=== PATIENT | female | born 1935 | race Caucasian/White ===

== ENCOUNTER 2020-10-04 14:45 | Outpatient (REF) | payer MEDICARE, SELFPAY | END 2020-10-04 14:46 | disposition home or self-care (01) | LOC: HO.HMGCLDS 14:45 | PROVIDERS: Visit Provider Internal Medicine | DX: Z20.828 Contact with and (suspected) exposure to other viral communicable diseases (principal) | CPT/HCPCS: C9803; U0003 ==

== ENCOUNTER 2023-04-13 13:27 | Outpatient (AMB) | payer MEDICARE, SELFPAY ==
--- NOTE | 2023-04-13 13:33 | MHC.PC.OV ---
Vital Signs 04/13/23 13:44 Height 5 ft 1 in Weight 152 lb BMI 28.7 BP 124/62 Blood Pressure Location Rt brachial Position Sitting Pulse 82 Pulse Source Pulse Oximeter Pulse Oximetry (%) 97 Oxygen Delivery Method Room Air Intake Visit Reasons: est care Intake Note: Pt is here today as a New Patient to est care Allergies lisinopril Adverse Reaction (Verified 07/12/23 12:09) unknown avandia Allergy (Severe, Uncoded 07/12/23 12:09) swelling of tongue Medication List - Last Reconciled 04/13/23 by Savana Cordoba MD amlodipine 5 mg PO DAILY atorvastatin 40 mg PO DAILY glipizide 10 mg PO BID hydrochlorothiazide 25 mg PO DAILY insulin glargine U-300 conc (Toujeo SoloStar U-300 Insulin) 32 units subcut levothyroxine 112 mcg PO DAILY losartan 100 mg PO DAILY Tobacco use date assessed: 04/13/23 Fall risk assessment: No Falls in past year Last assessed Fall Risk: 04/13/23 HPI est care HPI Details 88-year-old lady here today to establish care with a new PCP she has diabetes mellitus, hypertension, hypothyroidism, dyslipidemia, IBS with diarrhea as the main presenting symptom, has history of left breast cancer status post lumpectomy and radiation therapy. She is currently being seen by Dr. Otero for her diabetes mellitus, currently on Toujeo and glipizide. Last hemoglobin A1c as noted on her medical record was 8.9% from October 2022. Patient states however that her fasting sugar in the morning when she checks it has when been running between 100-120 mg/dL. States that she does have an appointment for follow-up with him in June 2023. Patient states that she has been having intermittent episodes of abdominal cramping and loose stools every time she would go out socially. Does not have any problems when at home. Would taken Imodium prior to leaving the house which has been helping. She has been told that she has a cardiac murmur, does complain of dyspnea on hvyd-di-mizniqxf exertion like climbing a flight of stairs. Denies any accompanying chest pain, no lightheadedness or headache. [facility] Medical History (Updated 07/12/23 @ 12:21 by Savana Cordoba MD) Acquired hypothyroidism Diabetes mellitus, with long-term current use of insulin Dyslipidemia Dyspnea on exertion Essential hypertension Fracture of left wrist History of left breast cancer IBS (irritable bowel syndrome) Mitral and aortic regurgitation Moderate aortic valve stenosis Osteoarthritis of hip Systolic ejection murmur Surgical History History of bladder suspension procedure History of cholecystectomy History of lumpectomy of left breast Social History Housing: House Patient Tobacco Use Status: Former Tobacco user e-Cigarette/Vaping Use: Never Used service: No Current occupational status: retired Cognitive needs: No Hearing needs: Yes Vision needs: Yes Female Reproductive History Menstrual Date of Mammogram: 12/01/22 (Negative, done at [facility]) Questionnaire PHQ-9 Over the last 2 weeks, how often have you been bothered by any of the following problems? 1. Little interest or pleasure in doing things: not at all 2. Feeling down, depressed, or hopeless: not at all 3. Trouble falling or staying asleep, or sleeping too much: not at all 4. Feeling tired or having little energy: not at all 5. Poor appetite or overeating: not at all 6. Feeling bad about yourself - or that you are a failure or have let yourself or your family down: not at all 7. Trouble concentrating on things, such as reading the newspaper or watching television: not at all 8. Moving or speaking so slowly that other people could have noticed. Or the opposite - being so fidgety or restless that you have been moving around a lot more than usual: not at all 9. Thoughts that you would be better off or of hurting yourself in some way: not at all Total score: 0 Depression Screening Interpretation: Negative 80705 - PHQ-9 Billing: Yes Source: Developed by Drs. Reece Medina, Brionna Sewell, Tarun Antony and colleagues, with an educational ree from [employer]. Thrive Questionnaire Date Thrive assessed: 04/13/23 I am a: Patient What is your living situation today?: I have a steady place to live Within the past 12 months, did the food you bought not last and you didn't have the money to get more?: Never true Within the past 12 months, did you worry whether your food would run out before you got money to buy more?: Never true Do you have trouble paying for medicines?: No Do you have trouble getting transportation to medical appointments?: No Do you have trouble paying your heating and electricity bill?: No Do you have trouble taking care of your child, family member or friend?: No Do you have trouble with day-to-day activities such as bathing, preparing meals, shopping, managing finances, etc.?: No Are you currently unemployed and looking for a job?: No Are you interested in more education?: No AUDIT C Alcohol Use Questionnaire (AUDIT-C) 1. How often do you have a drink containing alcohol?: Monthly or less 2. How many drinks containing alcohol do you have on a typical day when you are drinking?: 1 or 2 3. How often do you have six or more drinks on one occasion?: Never Total Score: 1 CHRISTI-7 AMB Questionnaire CHRISTI-7 Date CHRISTI - 7 assessed: 04/13/23 Feeling nervous, anxious, or on edge: 0 = Not at all Not being able to stop or control worryin = Not at all Worrying too much about different things: 0 = Not at all Trouble relaxin = Not at all Being so restless that it is hard to sit still: 0 = Not at all Becoming easily annoyed or irritable: 0 = Not at all Feeling afraid as if something awful might happen: 0 = Not at all Total CHRISTI-7 score (0-4 normal; 5-9 mild; 10-14 moderate; 15-21 severe): 0 Source: Developed by Drs. Reece Medina, Brionna Sewell, Tarun Antony and colleagues, with an educational ree from [employer]. CHRISTI-7 Assessment Billing CHRISTI-7 Assessment Tool: CHRISTI-7 Assessment 15188 Review of Systems Const Denies body aches, Denies fever(s), Denies headache(s) and Denies weakness Eyes Denies change in vision ENT Denies dizziness, Denies headache(s), Denies nasal congestion, Denies nasal discharge and Denies sore throat Card Denies chest pain, Denies lightheadedness and Denies palpitations Resp Denies chest congestion, Denies cough and Denies wheezing GI Denies abdominal pain and Denies heartburn Denies hematuria, Denies urinary frequency, Denies dysuria and Denies urinary urgency Musc Denies joint swelling, Denies limited range of motion and Reports stiffness Skin/Breast Denies breast pain, Denies breast mass, Denies lesions and Denies rash Neuro Denies dizziness, Denies headache(s) and Denies weakness Psych Reports no additional complaints Endo Denies polydipsia, Denies polyuria and Denies palpitations Scott/Lymph Denies easy bruising Aller/Immun Denies seasonal rhinorrhea and Denies wheezing Physical exam (Primary Care) Vital Signs: Last Vital Signs Pulse 82 04/13/23 13:44 BP 124/62 04/13/23 13:44 Pulse Ox 97 04/13/23 13:44 Oxygen Delivery Method Room Air 04/13/23 13:44 BMI result Body Mass Index 28.7 Tobacco/Smoking Status: Tobacco use Status Tobacco use date assessed 04/13/23 04/13/23 13:38 Patient Tobacco Use Status Former Tobacco user 04/13/23 13:57 e-Cigarette/Vaping Use Never Used 04/13/23 13:57 PHQ-9: PHQ-9 Score PHQ-9: Total score 0 04/13/23 15:34 Depression Screening Interpretation: Negative Thrive Assessment: Date of Thrive Assessment Date Thrive assessed 04/13/23 04/13/23 14:12 Const Other: Alert oriented x3, no acute distress noted, ambulatory with normal gait, looks younger than stated age Nutritional Appearance: average body habitus Orientation/consciousness: patient oriented x3 [facility] Head: Yes normocephalic and Yes atraumatic Ears: hearing grossly normal bilaterally, external ears normal, TM's normal bilaterally and EAC's normal General nose exam: Normal external nose present Face and sinus: Yes face symmetric Mouth: Normal oral and palatal mucosa present, oropharynx normal and moist mucous membranes Eyes General: appearance normal, both eyes and all related structures Conjunctivae: conjunctivae normal Sclerae: sclerae normal Pupils: Equal, round and reactive pupils present EOM: EOMs intact bilaterally Neck Other: Thyroid nonpalpable Neck: Yes full ROM, Yes no lymphadenopathy and Yes supple Chest Chest palpation & inspection: normal inspection of the chest Breast/axilla palpation: normal palpation of the breasts Resp Effort & Inspection: normal respiratory effort and able to speak in complete sentences Auscultation: clear to auscultation bilaterally Cardio Palpation: normal PMI Rate: regular rate Rhythm: regular rhythm Heart sounds: S1 normal heart sound present, S2 normal heart sound present and Murmur heart sound present systolic (Systolic ejection murmur left sternal border) GI Inspection: Yes normal to inspection Palpation (GI): Soft to palpation, nontender, no guarding and no masses Auscultation: normal bowel sounds General: Yes no CVA tenderness Back/Spine/Pelvis Back: no CVA tenderness and No back tenderness Skin General skin exam: no rashes or lesions noted Neuro General: patient oriented x3, gait normal, tone normal, moves all extremities, Normal light touch and pain sensation, no focal motor deficits and CN's II-XI intact bilaterally Cranial nerves: Yes CN's II-XII intact bilaterally and Yes Equal, round and reactive pupils present Cognition (Neuro): normal cognition Gait exam (Neuro): Normal gait present Psych Appearance: grossly normal and well kempt Mental Status: mental status grossly normal Speech and movement: Normal speech and movement present Affect: normal affect Attitude: cooperative Thought process: Normal thought process present Thought content: Normal thought content present Immunizations pneumoc 20-dandre conj-dip cr(PF) Performing Provider: Savana Cordoba MD Administered by: Marcella Montaño CMA on 04/13/23 14:29 Dose Route Admin Location Lot Number Expiration Date NDC Early Childhood 0.5 mL IM Right Deltoid [id number] 08/21/24 7115-7123-87 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 Gerer yearly for her routine eye exam (2) IBS (irritable bowel syndrome): Code(s): K58.9 - Irritable bowel syndrome without diarrhea Plan: Takes Imodium as needed, increase dietary fiber intake continue staying active (3) Acquired hypothyroidism: Code(s): E03.9 - Hypothyroidism, unspecified Plan: TSH and free T4 ordered, continued on current dose of levothyroxine (4) Dyslipidemia: Code(s): E78.5 - Hyperlipidemia, unspecified Plan: Refill sent for her atorvastatin, fasting lipids ordered, continue with healthy eating habits and regular exercise (5) Essential hypertension: Code(s): I10 - Essential (primary) hypertension Plan: Blood pressure at goal of less than 130/80. Continue with current medication. Reinforced importance of following a low sodium diet, getting regular exercise, and lowering stress levels. (6) History of left breast cancer: Comment: Status post breast lumpectomy in radiation Code(s): Z85.3 - Personal history of malignant neoplasm of breast Plan: Had a recent mammogram which showed normal findings (7) Dyspnea on exertion: Code(s): R06.09 - Other forms of dyspnea Plan: Echocardiogram ordered, CBC ordered (8) Systolic ejection murmur: Code(s): R01.1 - Cardiac murmur, unspecified Plan: Echocardiogram ordered (9) Need for pneumococcal 20-valent conjugate vaccination: Code(s): Z23 - Encounter for immunization Plan: Prevnar 20 given today Orders: Orders Comprehensive [place]. 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, E78.5 - Hyperlipidemia, unspecified, E03.9 - Hypothyroidism, unspecified, K58.9 - Irritable bowel syndrome without diarrhea, Z85.3 - Personal history of malignant neoplasm of breast, Z98.890 - Other specified postprocedural states, I10 - Essential (primary) hypertension Lipid Panel 04/14/23 E11.9 - Type 2 diabetes mellitus without complications, 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 of insulin, E78.5 - Hyperlipidemia, unspecified, E03.9 - Hypothyroidism, unspecified, K58.9 - Irritable bowel syndrome without diarrhea, Z85.3 - Personal history of malignant neoplasm of breast, Z98.890 - Other specified postprocedural states, I10 - Essential (primary) hypertension Free T4 (Free Thyroxine) 3 Months E03.9 - Hypothyroidism, unspecified, E11.9 - Type 2 diabetes mellitus without complications, Z79.4 - group home (current) use of insulin, E78.5 - Hyperlipidemia, unspecified, K58.9 - Irritable bowel syndrome without diarrhea, Z85.3 - Personal history of malignant neoplasm of breast, Z98.890 - Other specified postprocedural states, I10 - Essential (primary) hypertension Thyroid Stimulating Hormone 04/14/23 E11.9 - Type 2 diabetes mellitus without complications, 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 of insulin, E78.5 - Hyperlipidemia, unspecified, E03.9 - Hypothyroidism, unspecified, K58.9 - Irritable bowel syndrome without diarrhea, Z85.3 - Personal history of malignant neoplasm of breast, Z98.890 - Other specified postprocedural states, I10 - Essential (primary) hypertension Vitamin D 25-OH Total 04/14/23 E11.9 - Type 2 diabetes mellitus without complications, 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3 - Personal history of malignant neoplasm of breast, Z98.890 - Other specified postprocedural states, I10 - Essential (primary) hypertension Complete Blood Count Auto Diff 04/14/23 E11.9 - Type 2 diabetes mellitus without complications, 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 of insulin, E78.5 - Hyperlipidemia, unspecified, E03.9 - Hypothyroidism, unspecified, K58.9 - Irritable bowel syndrome without diarrhea, Z85.3 - Personal history of malignant neoplasm of breast, Z98.890 - Other specified postprocedural states, I10 - Essential (primary) hypertension CA echo transthoracic complete 04/13/23 R01.1 - Cardiac murmur, unspecified, R06.09 - Other forms of dyspnea Pneumococcal 20 Immunization 04/13/23 Z23 - Encounter for immunization Medications: New atorvastatin 40 mg PO DAILY 90 tabs 3RF Coding Level of Care Code New Pt Level 4 (82346) Diagnoses Diabetes mellitus, with long-term current use of insulin E11.9; Z79.4 IBS (irritable bowel syndrome) K58.9 Acquired hypothyroidism E03.9 Dyslipidemia E78.5 Essential hypertension I10 History of left breast cancer Z85.3 Dyspnea on exertion R06.09 Systolic ejection murmur R01.1 Need for pneumococcal 20-valent conjugate vaccination Z23 Additional Codes CHRISTI-7 Assessment Billing - CHRISTI-7 Assessment Tool: CHRISTI-7 Assessment [id number] ([id number])
[2023-04-13 13:44] VITALS: BP 124/62; PULSE 82; O2SAT 97; BMI 28.7
== END 2023-04-13 15:05 | disposition home or self-care (01) ==
LOC: HO.HMGC 13:27
PROVIDERS: PCP Internal Medicine; Visit Provider Internal Medicine
DX: E11.9 Type 2 diabetes mellitus without complications (principal); Z79.4 Long term (current) use of insulin; K58.9 Irritable bowel syndrome, unspecified; E03.9 Hypothyroidism, unspecified; Z23 Encounter for immunization; E78.5 Hyperlipidemia, unspecified; I10 Essential (primary) hypertension; Z85.3 Personal history of malignant neoplasm of breast; R06.09 Other forms of dyspnea; R01.1 Cardiac murmur, unspecified; Z98.890 Other specified postprocedural states
CPT/HCPCS: 90471; 90677; 99204

== ENCOUNTER 2023-04-14 07:27 | Outpatient (REF) | payer MEDICARE, SELFPAY ==
[2023-04-14 11:27] LABS: Hematocrit 41.3 % (37.0-47.0); Hemoglobin 13.3 g/dl (12.0-16.0); Mean Corpuscular HGB Conc 32.2 g/dl (31.0-35.0); Mean Corpuscular Hemoglobin 29.9 pg (27.0-33.0); Mean Corpuscular Volume 92.8 fL (80.0-98.0); Mean Platelet Volume 12.4 fL (9.4-12.3); Platelet Count 250 X10*3/uL (160-400); Red Blood Count 4.45 X10*6/uL (4.20-5.50); Red Cell Distribution Width 12.6 % (11.0-16.0)
[2023-04-14 11:29] LABS: WBC ABN SCTR FOR CBC 1
[2023-04-14 11:47] LABS: Estimated Average Glucose 177 mg/dL; Hemoglobin A1c % 7.8 %
[2023-04-14 11:53] LABS: Band Neutrophils Percent 1 % (3-5); Eosinophils Percent Manual 2 % (0-4); Lymphocytes Percent Manual 12 % (20-40); Monocytes Percent Manual 8 % (2-11); Neutrophils Percent Manual 77 % (45-73)
[2023-04-14 11:55] LABS: Acanthocytes 1+ (0-2) /OIF; Burr Cells 3+ (>5) /OIF; Ovalocytes 1+ (5-14) /OIF; Platelet Estimate NORMAL (NORMAL); Platelet Morphology Comment NORMAL; RBC Morphology NOTED
[2023-04-14 12:30] LABS: Creatinine Urine 40.74 mg/dL; Microalbumin Urine < 5.0 mg/L
[2023-04-14 12:32] LABS: Alanine Aminotransferase 20 U/L (0-31); Albumin Level 3.8 g/dL (3.5-5.0); Alkaline Phosphatase 73 U/L (39-117); Anion Gap 12 (12-20); Aspartate Amino Transferase 19 U/L (5-31); Bilirubin Total 0.8 mg/dL (0.0-1.0); Blood Urea Nitrogen 29 mg/dL (9-16); Calcium 9.6 mg/dL (8.4-10.2); Carbon Dioxide 29 mmol/L (22-29); Chloride 107 mmol/L (96-108); Cholesterol 161 mg/dL; Estimated Glomerular Filt Rate 38; Glucose Fasting 127 mg/dL (60-99); HDL Cholesterol 34 mg/dL; LDL Cholesterol Calculated 101 mg/dl; Potassium 4.3 mmol/L (3.3-5.1); Sodium 144 mmol/L (135-145); Total Protein 6.9 g/dL (6.5-8.0); Triglycerides 133 mg/dL
[2023-04-14 12:52] LABS: Thyroid Stimulating Hormone 0.27 uIU/mL (0.32-4.0); Vitamin D 25-OH Total 33.5 ng/mL (>30)
[2023-04-14 15:17] LABS: Eosinophils Absolute Manual 0.2 X10*3/uL (0.0-0.4); Lymphocytes Absolute Manual 1.3 X10*3/uL (1.2-4.9); Monocytes Absolute Manual 0.8 X10*3/uL (0.1-1.2); Neutrophils Absolute Manual 8.3 X10*3/uL (2.0-8.3); White Blood Count 10.6 X10*3/uL (4.8-10.8)
== END 2023-04-14 07:28 | disposition home or self-care (01) ==
LOC: HO.HMGCLDS 07:27
PROVIDERS: PCP Internal Medicine; Visit Provider Internal Medicine
DX: E03.9 Hypothyroidism, unspecified (principal); E11.9 Type 2 diabetes mellitus without complications; E78.5 Hyperlipidemia, unspecified; I10 Essential (primary) hypertension; K58.9 Irritable bowel syndrome, unspecified; Z98.890 Other specified postprocedural states; Z79.4 Long term (current) use of insulin; Z85.3 Personal history of malignant neoplasm of breast
CPT/HCPCS: 36415; 80053; 80061; 82043; 82306; 83036; 84443; 85007; 85027

== ENCOUNTER → 2023-05-03 13:43 | Outpatient (REF) | payer MEDICARE, SELFPAY ==
--- NOTE | 2023-05-03 13:46 | CA_ITS ---
Transthoracic Echocardiogram Patient (Last, First, Middle): Lachelle Lira, Gender: Female Date of : 1935 Age: 88 Procedure Date: 05/03/2023 Procedure Type: Transthoracic Echocardiogram Location: OP Height: 154.94 cm Weight: 68.95 kg BSA: 1.68 m2 Heart Rate: bpm BP: 140 / 65 mmHg Soda Worker: JASON Referring MD: Savana Cordoba MD Academic Affairs Manager: Jose Khan MD Symptoms: R01.1 - Cardiac murmur, unspecified Study Quality: Adequate ECG Rhythm: Sinus Conclusions: - 1. Normal LV systolic function with impaired relaxation filling pattern 2. Moderate calcific aortic stenosis 3. Calcific mitral valve disease with mild mitral stenosis and mild mitral regurgitation 4. Normal RV systolic pressure 5. No gross pericardial effusion Findings Left Ventricle Normal left ventricular size, thickness, and systolic function. The visually estimated ejection fraction is between 60-65%. Spectral Doppler is indicative of an impaired relaxation filling pattern. Right Ventricle Normal right ventricular cavity size and systolic function. Atria The left atrium is normal in size. There is no evidence of interatrial shunt. The right atrium is normal in size. Aortic Valve There is moderate calcification of the aortic valve. There is mild thickening of the aortic valve. There is moderate aortic valve stenosis. The peak aortic gradient is 33 mmHg.The mean gradient is 18 mmHg. There is mild aortic valve regurgitation. Mitral Valve There is moderate anterior and posterior mitral leaflet thickening. There is mild anterior and mild posterior mitral annular calcification. There is moderate mitral annular calcification. There is mild mitral valve regurgitation. There is mild mitral valve stenosis. Pulmonic Valve The pulmonic valve is likely normal. There is trace pulmonic valve regurgitation. Tricuspid Valve Normal tricuspid valve structure. There is trace tricuspid valve regurgitation. The right ventricular systolic pressure is normal. The right ventricular systolic pressure is 13 mmHg. Normal right atrial pressure. There is no evidence of pulmonary hypertension. Great Vessels All visible segments of the aorta are normal in size. The pulmonary artery was not well visualized. Venous The inferior vena cava is normal in size and collapses greater than 50% with inspiration. Pericardium/Pleural There is no evidence of pericardial effusion. Prior Study Comparison No prior study available for comparison. Measurements 2D Linear Measurements IVSd: 1.16 0.6-0.9/0.6-1.0 cm LVIDd: 3.63 3.9-5.3/4.2-5.9 cm LVIDd Index: 2.16 2.4-3.2/2.2-3.1 cm/m2 LVIDs: 2.36 2.0-3.6 cm LVPWd: 1.04 0.7-1.1 cm LA Diam: 3.30 2.7-3.8/3.0-4.0 cm LAIDs Index: 1.96 1.5-2.3 cm/m2 LV Mass: 156.34 67-162/88-224 g LV Mass Index: 93.06 43-95/49-115 g/m2 LVOT Diam: 1.90 3.0+(-)1.3 cm 2D Systolic Function EF 4C: 69.40 >55% EF 2C: 59.40 >55% EF BiP: 64.90 >55% Mitral Valve MV VTI: 0.51 MV Pk Rajiv: 1.43 MV Mn Rajiv: 0.87 MV Pk Grad: 8.00 MV Mn Grad: 3.00 MV Pk E: 1.13 MV PK A: 1.25 MV Decel Time: 320.00 E/A: 0.90 E'Lateral: 4.79 E'Medial: 2.94 E/E' Med: 38.40 E/E' Lat: 23.60 PHT: 94.00 MVA PHT: 2.34 MVA Continuity: 1.40 Decel Dawson: 3.53 Aortic Valve AoV Pk Rajiv: 2.88 AoV Mn Rajiv: 1.98 AoV VTI: 0.66 AoV Pk Grad: 33.00 Aov Mn Grad: 18.00 DARLYN Cont.VTI: 1.08 AI Pk Rajiv: 3.32 AI Dawson: 1.77 LVOT LVOT Pk Rajiv: 0.91 LVOT Mn Rajiv: 0.65 LVOT VTI: 0.25 LVOT Pk Grad: 3.00 LVOT Mn Grad: 2.00 LVOT Diam: 1.90 LVOT Area: 2.84 Diastolic Function MV Pk E: 1.13 MV Pk A: 1.25 E/A: 0.90 E'Medial: 2.94 E/E' Med: 38.40 E' Laterial: 4.79 E/E' Lat: 23.60 Right Ventricle TAPSE (mm): 18.30 TVS' Rajiv: 16.20 Tricuspid Valve TR Pk Rajiv: 1.61 TR Pk Grad: 10.00 RA Press: 3.00 RVSP: 13.00 Great Vessels Aorta Sinus of Valsalva: 2.99 2.0-3.[address] [place]: 2.20 1.7-3.4 cm Ao Asc: 2.80 2.1-3.4 cm Updated in Other Vendor System with Status of Final Jose Khan MD electronically signed on 05/04/2023 11:04:26 AM with status of Final
== END ==
LOC: HO.CARD 13:43
PROVIDERS: PCP Internal Medicine; Visit Provider Internal Medicine
DX: R01.1 Cardiac murmur, unspecified (principal); R06.09 Other forms of dyspnea
CPT/HCPCS: 93306

== ENCOUNTER 2023-07-08 08:47 | Outpatient (REF) | payer MEDICARE, SELFPAY ==
[2023-07-08 11:08] LABS: MANUAL DIFF FLAG NO
[2023-07-08 11:35] LABS: Basophils Absolute Auto 0.1 X10*3/uL (0.0-0.2); Basophils Percent Auto 0.6 % (0-2); Eosinophils Absolute Auto 0.5 X10*3/uL (0.0-0.4); Eosinophils Percent Auto 5.8 % (0-4); Hematocrit 40.7 % (37.0-47.0); Hemoglobin 13.2 g/dl (12.0-16.0); Imm Gran Abs Auto 0.02 X10*3/uL (0.00-0.03); Imm Gran Pct Auto 0.2 % (0.0-0.4); Lymphocytes Absolute Auto 3.5 X10*3/uL (1.2-4.9); Lymphocytes Percent Auto 37.8 % (20-40); Mean Corpuscular HGB Conc 32.4 g/dl (31.0-35.0); Mean Corpuscular Volume 92.5 fL (80.0-98.0); Mean Platelet Volume 12.4 fL (9.4-12.3); Monocytes Absolute Auto 0.6 X10*3/uL (0.1-1.2); Neutrophils Absolute Auto 4.7 x10*3/uL (2.0-8.3); Neutrophils Percent Auto 49.6 % (45-73); Platelet Count 212 X10*3/uL (160-400); Red Cell Distribution Width 12.8 % (11.0-16.0); White Blood Count 9.4 X10*3/uL (4.8-10.8)
[2023-07-08 12:08] LABS: Free T4 (Free Thyroxine) 0.55 ng/dL (0.71-1.85)
== END 2023-07-08 08:48 | disposition home or self-care (01) ==
LOC: HO.HMGCLDS 08:47
PROVIDERS: PCP Internal Medicine; Visit Provider Internal Medicine
DX: E03.9 Hypothyroidism, unspecified (principal); E11.9 Type 2 diabetes mellitus without complications; E78.5 Hyperlipidemia, unspecified; I10 Essential (primary) hypertension; K58.9 Irritable bowel syndrome, unspecified; Z98.890 Other specified postprocedural states; Z79.4 Long term (current) use of insulin; Z85.3 Personal history of malignant neoplasm of breast
CPT/HCPCS: 36415; 84439; 85025

== ENCOUNTER 2023-07-12 11:30 | Outpatient (AMB) | payer MEDICARE, SELFPAY ==
[2023-07-12 11:42] VITALS: BP 122/64; PULSE 68; O2SAT 95; BMI 28.7
--- NOTE | 2023-07-12 11:42 | A.OFFPC_ITS ---
Vital Signs 07/12/23 11:42 Height 5 ft 1 in Weight 152 lb 2 oz BMI 28.7 BP 122/64 Blood Pressure Location Rt brachial Position Sitting Pulse 68 Pulse Source Pulse Oximeter Pulse Oximetry (%) 95 Oxygen Delivery Method Room Air Intake Visit Reasons: 3m follow up Intake Note: Pt is here today for 3 month f/u. Allergies lisinopril Adverse Reaction (Verified 07/12/23 12:09) unknown avandia Allergy (Severe, Uncoded 07/12/23 12:09) swelling of tongue Medication List - Last Reconciled 07/12/23 by Savana Cordoba MD amlodipine 5 mg PO DAILY atorvastatin 40 mg PO DAILY glipizide 10 mg PO BID hydrochlorothiazide 25 mg PO DAILY insulin glargine U-300 conc (Toujeo SoloStar U-300 Insulin) 32 units subcut levothyroxine 112 mcg PO DAILY losartan 100 mg PO DAILY Tobacco use date assessed: 07/12/23 Fall risk assessment: No Falls in past year Last assessed Fall Risk: 07/12/23 Dental Screening Dental Screen Date: 07/12/23 Did you have a dental visit in the last 12 months?: Yes Did you have a dental problem in the last 6 months where you did not have access to dental care?: No Was dental information given to patient?: No HPI 3m follow up HPI Details 88-year-old lady with diabetes mellitus and hypothyroidism, currently being followed by director prospect Dr. Otero , has hypertension, dyslipidemia, noted to have a cardiac murmur, here today for of follow-up on results of her echocardiogram. It showednormal LV systolic function with impaired relaxation filling pattern, moderate calcific aortic stenosis, calcific mitral valve disease with mild mitral stenosis and mild mitral regurgitation?and normal RV systolic pressure. Patient however denies any shortness of breath, no chest pain or lightheadedness ? Hemoglobin A1c done today came back at 7.7% in the recent free T4 was within normal limits. Patient states that she has an appointment already scheduled to see her endocrine specialist Dr. Otero later this month? ? ? [facility], [facility] Medical History (Updated 07/12/23 @ 12:21 by Savana Cordoba MD) Acquired hypothyroidism Diabetes mellitus, with long-term current use of insulin Dyslipidemia Dyspnea on exertion Essential hypertension Fracture of left wrist History of left breast cancer IBS (irritable bowel syndrome) Mitral and aortic regurgitation Moderate aortic valve stenosis Osteoarthritis of hip Systolic ejection murmur Surgical History History of bladder suspension procedure History of cholecystectomy History of lumpectomy of left breast Social History Housing: House Patient Tobacco Use Status: Former Tobacco user e-Cigarette/Vaping Use: Never Used service: No Current occupational status: retired Cognitive needs: No Hearing needs: Yes Vision needs: Yes Questionnaire PHQ-9 Over the last 2 weeks, how often have you been bothered by any of the following problems? 1. Little interest or pleasure in doing things: several days 2. Feeling down, depressed, or hopeless: not at all 3. Trouble falling or staying asleep, or sleeping too much: several days 4. Feeling tired or having little energy: not at all 5. Poor appetite or overeating: several days 6. Feeling bad about yourself - or that you are a failure or have let yourself or your family down: not at all 7. Trouble concentrating on things, such as reading the newspaper or watching television: not at all 8. Moving or speaking so slowly that other people could have noticed. Or the opposite - being so fidgety or restless that you have been moving around a lot more than usual: not at all 9. Thoughts that you would be better off or of hurting yourself in some way: not at all Total score: 3 Depression Screening Interpretation: Negative 37064 - PHQ-9 Billing: Yes Source: Developed by Drs. Reece Medina, Brionna Sewell, Tarun Antony and colleagues, with an educational ree from [employer]. Thrive Questionnaire Date Thrive assessed: 04/13/23 AUDIT C Alcohol Use Questionnaire (AUDIT-C) 1. How often do you have a drink containing alcohol?: Never 3. How often do you have six or more drinks on one occasion?: Never Total Score: 0 Score Reviewed/Action Taken: Yes CHRISTI-7 AMB Questionnaire CHRISTI-7 Date CHRISTI - 7 assessed: 04/13/23 Source: Developed by Drs. Reece Medina, Tarun Webb Kroenke and colleagues, with an educational ree from [employer]. Review of Systems Const Denies body aches, Denies fever(s), Denies headache(s) and Denies weakness Eyes Denies change in vision ENT Denies dizziness, Denies headache(s), Denies nasal congestion, Denies nasal discharge and Denies sore throat Card Denies chest pain, Denies lightheadedness and Denies palpitations Resp Denies chest congestion, Denies cough and Denies wheezing GI Denies abdominal pain and Denies heartburn Denies hematuria, Denies urinary frequency, Denies dysuria and Denies urinary urgency Musc Denies joint swelling, Denies limited range of motion and Reports stiffness Skin/Breast Denies breast pain, Denies breast mass, Denies lesions and Denies rash Neuro Denies dizziness, Denies headache(s) and Denies weakness Psych Reports no additional complaints Endo Denies polydipsia, Denies polyuria and Denies palpitations Scott/Lymph Denies easy bruising Aller/Immun Denies seasonal rhinorrhea and Denies wheezing Physical exam (Primary Care) Vital Signs: Last Vital Signs Pulse 68 07/12/23 11:42 BP 122/64 07/12/23 11:42 Pulse Ox 95 07/12/23 11:42 Oxygen Delivery Method Room Air 07/12/23 11:42 BMI result Body Mass Index 28.7 Tobacco/Smoking Status: Tobacco use Status Tobacco use date assessed 07/12/23 07/12/23 11:44 Patient Tobacco Use Status Former Tobacco user 07/12/23 11:44 e-Cigarette/Vaping Use Never Used 07/12/23 11:44 PHQ-9: PHQ-9 Score PHQ-9: Total score 3 07/12/23 12:36 Depression Screening Interpretation: Negative Thrive Assessment: Date of Thrive Assessment Date Thrive assessed 04/13/23 07/12/23 11:44 Const Other: Alert oriented x3, no acute distress noted, ambulatory with normal gait, looks younger than stated age Nutritional Appearance: average body habitus Orientation/consciousness: patient oriented x3 HENMT Face and sinus: Yes face symmetric Mouth: moist mucous membranes Eyes General: appearance normal, both eyes and all related structures Neck Other: Thyroid nonpalpable Neck: Yes full ROM, Yes no lymphadenopathy and Yes supple Resp Effort & Inspection: normal respiratory effort and able to speak in complete sentences Auscultation: clear to auscultation bilaterally Cardio Palpation: normal PMI Rate: regular rate Rhythm: regular rhythm Heart sounds: S1 normal heart sound present, S2 normal heart sound present and Murmur heart sound present systolic (Systolic ejection murmur left sternal border) GI Inspection: Yes normal to inspection Palpation (GI): Soft to palpation, nontender, no guarding and no masses Auscultation: normal bowel sounds Neuro General: patient oriented x3, gait normal, tone normal, moves all extremities, Normal light touch and pain sensation, no focal motor deficits and CN's II-XI intact bilaterally Cranial nerves: Yes CN's II-XII intact bilaterally Cognition (Neuro): normal cognition Gait exam (Neuro): Normal gait present Results AMB Hemoglobin A1c AMB Hemoglobin A1c 7.7 % Last Edit by BONITA Hernandez on 07/12/23 12 :39 Results Reviewed Results Reviewed: Laboratory Last Values Hgb A1c (Clinic) 7.7 % (4.0-6.0) H 07/12/23 12:35 RUN: 07/12/23 1209 PAGE 1 [facility] [address] [place] [id number] Net Repairer: Boone Schneider M.D. Specimen Inquiry Name: Beckie Lira Lachelle Age/Sex: 88/F : 1935 Unit#: [id number] Attend Dr: Savana Cordoba MD Re07/08/23 Status: DEP [facility] Disch: SPEC : [id number] MONICA: 07/08/23 STATUS: COMP REQ : [id number] RECD: 07/08/[address]: Savana Cordoba MD COMP: 07/08/23 ENTERED: 07/08/[address] [facility] [address]: ORDERED: CBC Auto Diff Test Result Flag Reference Site WBC 9.4 4.8-10.8 X10*3/uL RBC 4.40 4.20-5.50 X10*6/uL HGB 13.2 12.0-16.0 g/dl HCT 40.7 37.0-47.0 % MCV 92.5 80.0-98.0 fL MCH 30.0 27.0-33.0 pg MCHC 32.4 31.0-35.0 g/dl RDW 12.8 11.0-16.0 % PLT 212 160-400 X10*3/uL MPV 12.4 H 9.4-12.3 fL Neut Pct Auto 49.6 45-73 % ImGran Pct Auto 0.2 0.0-0.4 % Lymp Pct Auto 37.8 20-40 % Hanover Pct Auto 6.0 2-11 % Eos Pct Auto 5.8 H 0-4 % Baso Pct Auto 0.6 0-2 % NRBC Pct Auto 0.0 0.0-0.2 /100WBC ANC Neut Abs # 4.7 2.0-8.3 x10*3/uL ImGran Abs Auto 0.02 0.00-0.03 X10*3/uL Lymph Abs Auto 3.5 1.2-4.9 X10*3/uL Hanover Abs Auto 0.6 0.1-1.2 X10*3/uL Eos Abs Auto 0.5 H 0.0-0.4 X10*3/uL Baso Abs Auto 0.1 0.0-0.2 X10*3/uL NRBC Abs Auto 0.000 0.0-0.012 X10*3/uL Assessment and Plan Assessment & Plan (1) Moderate aortic valve stenosis: Code(s): I35.0 - Nonrheumatic aortic (valve) stenosis Plan: Discussed results of echocardiogram with patient which showed presence of moderate aortic stenosis, currently asymptomatic. Stressed importance of getting blood pressure, cholesterol levels and glucose levels in good control, referred to cardiology for further evaluation (2) Diabetes mellitus, with long-term current use of insulin: Code(s): E11.9 - Type 2 diabetes mellitus without complications; Z79.4 - nursing home (current) use of insulin Plan: Currently being followed by endocrine clinic, latest hemoglobin A1c is at 7.7%. Continued on Toujeo and glipizide (3) Essential hypertension: Code(s): I10 - Essential (primary) hypertension Plan: Blood pressure at goal of less than 130/80. Continue with current medication. Reinforced importance of following a low sodium diet, getting regular exercise, and lowering stress levels. 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 Free T4 (Free Thyroxine) 08/08/23 E03.9 - Hypothyroidism, unspecified, E11.9 - Type 2 diabetes mellitus without complications, E78.5 - Hyperlipidemia, unspecified, I10 - Essential (primary) hypertension, 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 Lipid Panel 08/08/23 E03.9 - Hypothyroidism, unspecified, E11.9 - Type 2 diabetes mellitus without complications, E78.5 - Hyperlipidemia, unspecified, I10 - Essential (primary) hypertension, 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 Microalbumin, Random (w Creat) 08/08/23 E03.9 - Hypothyroidism, unspecified, E11.9 - Type 2 diabetes mellitus without complications, E78.5 - Hyperlipidemia, unspecified, I10 - Essential (primary) hypertension, Z79.4 - nursing home (current) use of insulin Basic Metabolic Panel Fasting 08/08/23 E03.9 - Hypothyroidism, unspecified, E11.9 - Type 2 diabetes mellitus without complications, E78.5 - Hyperlipidemia, unspecified, I10 - Essential (primary) hypertension, 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
== END 2023-07-12 12:38 | disposition home or self-care (01) ==
PROVIDERS: Visit Provider Internal Medicine
DX: E11.9 Type 2 diabetes mellitus without complications (principal); Z79.4 Long term (current) use of insulin; I10 Essential (primary) hypertension; E03.9 Hypothyroidism, unspecified; I35.0 Nonrheumatic aortic (valve) stenosis; E78.5 Hyperlipidemia, unspecified
CPT/HCPCS: 83036; 99214

== ENCOUNTER 2023-10-25 14:28 | Outpatient (AMB) | payer MEDICARE, SELFPAY ==
--- NOTE | 2023-10-25 14:31 | A.OFFVIS_ITS ---
Intake Vital Signs 10/25/23 14:32 Height 5 ft 1 in Weight 153 lb 14.122 oz BMI 29.1 BP 128/66 Blood Pressure Location Lt brachial Position Sitting Pulse 86 Intake Visit Reasons: NPV/Nonrheumatic aortic stenosis/Yeison Cordoba Intake Note: NPV w. 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 Echocardiogram also showed moderate aortic stenosis. Patient states that she is fairly healthy without any major limitations but recently she has been noticing some shortness of breath with activity. No anginal-type symptoms. Otherwise no history of any coronary artery disease or myocardial infarction or card iomyopathy. Reasonably healthy considering her age. [facility] Medical History (Updated 07/12/23 @ 12:21 by Savana Cordoba MD) Moderate aortic valve stenosis Mitral and aortic regurgitation Osteoarthritis of hip Dyspnea on exertion Systolic ejection murmur Fracture of left wrist Essential hypertension History of left breast cancer IBS (irritable bowel syndrome) Acquired hypothyroidism Dyslipidemia Diabetes mellitus, with long-term current use of insulin Surgical History History of bladder suspension procedure History of cholecystectomy History of lumpectomy of left breast Social History Housing: House Patient Tobacco Use Status: Former Tobacco user e-Cigarette/Vaping Use: Never Used service: No Current occupational status: retired Cognitive needs: No Hearing needs: Yes Vision needs: Yes Review of Systems Const Denies weakness ENT Denies dizziness Card Denies chest pain, Denies chest pain with activity, Denies syncope, Denies rapid heart rate, Denies pedal edema, Denies edema, Denies leg edema, Denies lightheadedness, Denies palpitations, Denies dyspnea on exertion and Denies orthopnea Resp Denies cough and Denies dyspnea on exertion GI Denies hematochezia and Denies change in stool character Musc Denies abnormal gait, Denies muscle cramps, Denies muscle weakness, Denies numbness, Denies radiating pain into limb and Denies tingling Neuro Denies abnormal gait, Denies dizziness, Denies syncope, Denies numbness, Denies tingling and Denies weakness Endo Denies palpitations Physical Exam Vital Signs: Last Vital Signs Pulse 86 10/25/23 14:32 BP 128/66 10/25/23 14:32 BMI result Body Mass Index 29.1 Const General: comfortable and no acute distress Orientation/consciousness: patient oriented x3 HEENT Other: Unremarkable Head: Yes normal to inspection Neck Neck: Yes normal visual inspection Chest Chest palpation & inspection: normal inspection of the chest Resp Auscultation: crackles Cardio Palpation: normal PMI Heart sounds: S1 normal heart sound present, S2 normal heart sound present, no gallops, Murmur heart sound present systolic III/ and at the right sternal border and no rubs GI Palpation (GI): Soft to palpation Back/Spine/Pelvis Other: unremarkable Skin General skin exam: no rashes or lesions noted Neuro General: patient oriented x3 Extrem General: Yes normal to inspection Psych Mental Status: mental status grossly normal Office Procedures EKG Details: EKG with sinus rhythm at 86/Min; no significant ST-T changes and otherwise unremarkable. [place]. [id number], Complete Assessment & Plan Assessment & Plan (1) Moderate aortic valve stenosis: Code(s): I35.0 - Nonrheumatic aortic (valve) stenosis Plan In the recent echocardiogram, aortic valve is moderately calcified. Peak gradient across aortic valve was 33 mm Hg with a mean of 18 mm Hg. Calculated valve area 1.08 sq cm. LVEF preserved at 60-65%. Overall, consistent with moderate stenosis. Pathophysiology of aortic stenosis discussed with patient as well as her daughter. At this time, no specific intervention. We will follow-up by clinical exam and by echocardiograms. With regard to shortness of breath, will need further assessment with stress testing for any ischemic components. Chest x-ray for any intrinsic lung disease as she does have some crackles on exam and remote history of smoking. Follow-up after completion of the above. Patient and daughter agree with the plan. Orders: Orders CA stress test Today R07.2 - Precordial pain NM cardiolite stress test Today R07.2 - Precordial pain XR chest 2V Today R06.02 - Shortness of breath Coding Level of Care Code New Pt Level 4 (73955) Diagnoses Moderate aortic valve stenosis I35.0 CPT Codes EKG - CPT: 69174-[id number], Complete ([id number])
[2023-10-25 14:32] VITALS: BP 128/66; PULSE 86; BMI 29.1
== END 2023-10-25 14:59 | disposition home or self-care (01) ==
PROVIDERS: PCP Internal Medicine; Visit Provider Internal Medicine
DX: I35.0 Nonrheumatic aortic (valve) stenosis (principal)
CPT/HCPCS: 93010; 99204

== ENCOUNTER → 2023-10-25 14:28 | Outpatient (BNVA) | payer MEDICARE, SELFPAY | PROVIDERS: PCP Internal Medicine; Visit Provider Internal Medicine | DX: I35.0 Nonrheumatic aortic (valve) stenosis (principal) | CPT/HCPCS: 93005; 99202 ==

== ENCOUNTER 2023-11-02 10:02 | Outpatient (REF) | payer MEDICARE, SELFPAY ==
[2023-11-02 14:27] LABS: Anion Gap 16 (12-20); Blood Urea Nitrogen 34 mg/dL (9-16); Calcium 10.1 mg/dL (8.4-10.2); Carbon Dioxide 26 mmol/L (22-29); Chloride 104 mmol/L (96-108); Cholesterol 152 mg/dL (<200); Estimated Glomerular Filt Rate 39; Glucose Fasting 130 mg/dL (60-99); HDL Cholesterol 45 mg/dL (>40); LDL Cholesterol Calculated 81 mg/dL (<100); Potassium 3.9 mmol/L (3.3-5.1); Sodium 142 mmol/L (135-145); Triglycerides 133 mg/dL (<150)
[2023-11-02 14:41] LABS: Creatinine Urine 55.68 mg/dL; Microalbum/Creatinine Ratio Ur 17.9 ug/mg cr (<30)
[2023-11-02 14:49] LABS: Free T4 (Free Thyroxine) 1.13 ng/dL (0.71-1.85); Thyroid Stimulating Hormone 0.43 uIU/mL (0.32-4.0)
== END 2023-11-02 10:03 | disposition home or self-care (01) ==
LOC: HO.HMGCLDS 10:02
PROVIDERS: PCP Internal Medicine; Visit Provider Internal Medicine
DX: I10 Essential (primary) hypertension (principal); E30.9 Disorder of puberty, unspecified; E78.5 Hyperlipidemia, unspecified; E11.9 Type 2 diabetes mellitus without complications; Z79.4 Long term (current) use of insulin
CPT/HCPCS: 36415; 80048; 80061; 82043; 82570; 84439; 84443

== ENCOUNTER → 2023-12-14 10:00 | Outpatient (REF) | payer MEDICARE, SELFPAY ==
--- NOTE | ~2023-12-14 | NM_ITS ---
EXERCISE MYOCARDIAL PERFUSION STUDY INDICATION: Shortness of breath, fixed stenosis TECHNIQUE: The patient was brought in for an exercise perfusion study on 12/14/2023. Patient performed exercise as per Alfa protocol and was injected 25 mCi of sestamibi once target heart rate was achieved. Images were obtained using the SPECT gamma camera interlaced with the gating device. Images were obtained in supine position. Resting perfusion study was performed on 12/15/2023. Patient was administered 25 mCi of sestamibi intravenously at rest. Images were then obtained in supine position. Images were processed with the software and compared side to side in short axis, horizontal long axis and vertical long axis views. Total DLP 162mGy-cm. FINDINGS: Raw images were reviewed. Arms by the patient's side. The stress perfusion study showed diminished tracer uptake in the distal part of inferolateral wall. With CT attenuation correction, there is improvement suggestive of diaphragmatic attenuation artifact. The gated study shows normal LV systolic function with calculated LVEF of >70%. LV cavity is normal in size. The gated study shows normal wall thickening and contraction of segments. Resting study shows diminished tracer uptake along the distal part of inferolateral wall. With CT attenuation correction, there is improved uptake suggestive of diaphragmatic attenuation artifact. Gating at rest reveals normal wall motion with ejection fraction at 66%. The findings are consistent with fixed distal inferolateral defect suggestive of diaphragmatic attenuation artifact. NM/NM cardiolite stress test IMPRESSION: 1. Myocardial perfusion imaging study shows likely normal myocardial perfusion. 2. Gated LVEF is > 70% during stress and 66% during rest. 3. Transient ischemic dilatation not present. EKG component of the test reported separately.
--- NOTE | 2023-12-14 10:04 | CA_ITS ---
Acquisition Time: 2023-12-14 10:12:57 Total Exercise Time: 00:05:00 Test Indications: R07.2 - Precordial pain Medications: Protocol: GUNNER Max HR: 160 BPM 120% of Pred: 133 BPM Max BP: 156/050 mmHG Max Work Load: 4.6 METS Exercise stress test exercise 5 nmin of Gunner protocol achieving 106% MPHR, with mild to moderate SOB, no chest discomfort, with isolated PACs, with normotensive response to exercise, without EKG changes. Breathing returned to normal with rest. Nuclear images pending. Test reviewed with Dr. Cox. Referred By: Efra Solo Overread By: Soniya Mohan
== END ==
LOC: HO.CARD 10:00
PROVIDERS: PCP Internal Medicine; Visit Provider Internal Medicine
DX: R07.2 Precordial pain (principal)
CPT/HCPCS: 78452; 93017; A9500

== ENCOUNTER → 2023-12-14 10:04 | Outpatient (BNV) | payer MEDICARE, SELFPAY | PROVIDERS: PCP Internal Medicine; Visit Provider Nurse Practitioner | DX: R07.2 Precordial pain (principal); R06.02 Shortness of breath | CPT/HCPCS: 78452; 93016; 93018 ==

== ENCOUNTER 2024-01-06 09:07 | Outpatient (AMB) | payer MEDICARE, SELFPAY ==
[2024-01-06 09:43] VITALS: BP 132/60; PULSE 92; TEMP 36.8; O2SAT 95; BMI 28.0
--- NOTE | 2024-01-06 09:43 | MHC.OFFWIV ---
Intake Vital Signs 01/06/24 09:43 Height 5 ft 1 in Weight 148 lb 4 oz BMI 28.0 BP 132/60 Blood Pressure Location Rt brachial Position Sitting Pulse 92 Pulse Source Pulse Oximeter Temp 98.3 F Temp Source Oral Pulse Oximetry (%) 95 Oxygen Delivery Method Room Air Intake Visit Reasons: EP Cough 1 week (Masked) Intake Note: Pt is here c/o having cough, weakness and light headed for one week. Pt also states she has felt fatigue. Patient Tobacco Use Status: Former Tobacco user Allergies lisinopril Adverse Reaction (Verified 01/06/24 09:48) unknown avandia Allergy (Severe, Uncoded 01/06/24 09:48) swelling of tongue Do you need a note to return to daycare/school/sports/work: No HPI HPI Comments History of Present Illness Details 88 y/o female patient presents to walk in clinic with c/o productive cough x 1 week. Reports poor appetite. Reports wheezing and chest tightness. Denies fevers, chills, nausea or vomiting. She has been taking OTC cold remedies with no relief. Pt has pre-existent Cardiac issue (Mitral Reg and Stenosis) being followed by Cardiology. [facility] Medical History (Updated 07/12/23 @ 12:21 by Savana Cordoba MD) Moderate aortic valve stenosis Mitral and aortic regurgitation Osteoarthritis of hip Dyspnea on exertion Systolic ejection murmur Fracture of left wrist Essential hypertension History of left breast cancer IBS (irritable bowel syndrome) Acquired hypothyroidism Dyslipidemia Diabetes mellitus, with long-term current use of insulin Surgical History History of bladder suspension procedure History of cholecystectomy History of lumpectomy of left breast Social History Housing: House Patient Tobacco Use Status: Former Tobacco user e-Cigarette/Vaping Use: Never Used service: No Current occupational status: retired Cognitive needs: No Hearing needs: Yes Vision needs: Yes Review of Systems Const All systems reviewed & are unremarkable except as noted in HPI and below Physical Exam Vital Signs: Last Vital Signs Temp 98.3 F 01/06/24 09:43 Pulse 92 01/06/24 09:43 BP 132/60 01/06/24 09:43 Pulse Ox 95 01/06/24 09:43 Oxygen Delivery Method Room Air 01/06/24 09:43 BMI result Body Mass Index 28.0 Const General: comfortable and no acute distress HEENT Head: Yes normocephalic Ears: external ears normal and TM's normal bilaterally General nose exam: Normal nasal mucous membranes and turbinates present Face and sinus: Yes sinuses nontender Mouth: moist mucous membranes Throat: Yes posterior oropharynx normal Resp Effort & Inspection: normal respiratory effort Auscultation: crackles, rhonchi upper bilaterally and wheezes upper bilaterally Cardio Rate: regular rate Rhythm: regular rhythm Assessment & Plan Assessment & Plan (1) Cough in adult: Code(s): R05.9 - Cough, unspecified Plan: - Empir Abx - Chest Xray - Rest - SARs Orders: Orders SARS-CoV2/FLU/RSV Today R05.9 - Cough, unspecified XR chest 2V Today R05.9 - Cough, unspecified Medications: New amoxicillin 500 mg PO BID 10 days 20 caps 0RF R05.9 - Cough, unspecified Coding Level of Care Code Est Pt Level 3 (77218) Diagnoses Cough in adult R05.9 Time Spent (min) 15
== END 2024-01-06 10:49 | disposition home or self-care (01) ==
PROVIDERS: PCP Internal Medicine; Visit Provider Nurse Practitioner Family
DX: R05.9 Cough, unspecified (principal)
CPT/HCPCS: 99213

== ENCOUNTER 2024-01-06 10:16 | Outpatient (REF) | payer MEDICARE, SELFPAY ==
--- NOTE | ~2024-01-06 | XR_ITS ---
EXAMINATION: XR CHEST CLINICAL INFORMATION: Cough COMPARISON: None available. TECHNIQUE: 2 views of the chest were obtained. FINDINGS: Moderate to markedly elevated right hemidiaphragm. There is coarse interstitial changes throughout the lungs. These could be chronic but interstitial infiltrate needs to be considered. There are no films to compare. There is no effusion. The cardiac silhouette is within normal limits. The hilar regions are grossly unremarkable. XR/XR chest 2V IMPRESSION: Elevated right hemidiaphragm. Coarse interstitial markings throughout the lungs could represent interstitial infiltrate versus chronic change. Attention to follow-up
[2024-01-06 14:01] LABS: Influenza A PCR NEGATIVE (Negative); Influenza B PCR NEGATIVE (Negative); Resp Syncy Virus RNA Qual PCR NEGATIVE (Negative); SARS COV2 PCR INHOUSE NEGATIVE (Negative)
== END 2024-01-06 10:17 | disposition home or self-care (01) ==
LOC: HO.HMGCX 10:16
PROVIDERS: PCP Internal Medicine; Visit Provider Nurse Practitioner Family
DX: R05.9 Cough, unspecified (principal); Z11.52 Encounter for screening for COVID-19; Z20.828 Contact with and (suspected) exposure to other viral communicable diseases
CPT/HCPCS: 0241U; 71046

== ENCOUNTER 2024-02-01 10:32 | Outpatient (AMB) | payer MEDICARE, SELFPAY ==
--- NOTE | 2024-02-01 10:42 | A.OFFPC_ITS ---
Vital Signs 02/01/24 11:08 Height 5 ft 1 in Weight 151 lb BMI 28.5 BP 104/60 Blood Pressure Location Lt brachial Position Sitting Pulse 92 Pulse Source Pulse Oximeter Pulse Oximetry (%) 93 Oxygen Delivery Method Room Air Intake Visit Reasons: 3 month follow up Intake Note: Pt is here today for her 3 mo. f/u Allergies lisinopril Adverse Reaction (Verified 02/02/24 04:13) unknown avandia Allergy (Severe, Uncoded 02/02/24 04:13) swelling of tongue Medication List - Last Reconciled 02/02/24 by Savana Cordoba MD amlodipine 5 mg PO DAILY atorvastatin 40 mg PO DAILY glipizide 10 mg PO BID 90 days hydrochlorothiazide 25 mg PO DAILY insulin glargine U-300 conc (Toujeo SoloStar U-300 Insulin) 32 units subcut levothyroxine 112 mcg PO DAILY losartan 100 mg PO DAILY Tobacco use date assessed: 02/01/24 Fall risk assessment: No Falls in past year Last assessed Fall Risk: 02/01/24 Dental Screening Dental Screen Date: 02/01/24 Did you have a dental visit in the last 12 months?: Yes Did you have a dental problem in the last 6 months where you did not have access to dental care?: No Was dental information given to patient?: Patient has dentist HPI HPI Comments History of Present Illness Details 88-year-old lady with history of mitral and aortic regurgitation, osteoarthritis, history of left breast cancer, acquired hypothyroidism, diabetes mellitus, here today for follow-up on her hypertension and hyperlipidemia. She is currently being followed by cardiology , had a recent stress test and echocardiogram , and has an appointment for follow-up with her glass calibrator next month. She is currently being followed by Dr. Otero for her diabetes and thyroid disorder. She has been compliant with taking all her medications, stays active, has no new complaints at present time. [facility] Medical History (Updated 02/06/24 @ 23:32 by Savana Cordoba MD) Moderate aortic valve stenosis Mitral and aortic regurgitation Osteoarthritis of hip Dyspnea on exertion Systolic ejection murmur Fracture of left wrist Essential hypertension History of left breast cancer IBS (irritable bowel syndrome) Acquired hypothyroidism Dyslipidemia Diabetes mellitus, with long-term current use of insulin Surgical History History of bladder suspension procedure History of cholecystectomy History of lumpectomy of left breast Social History Housing: House Patient Tobacco Use Status: Former Tobacco user e-Cigarette/Vaping Use: Never Used service: No Current occupational status: retired Cognitive needs: No Hearing needs: Yes Vision needs: Yes Questionnaire PHQ-9 Over the last 2 weeks, how often have you been bothered by any of the following problems? 1. Little interest or pleasure in doing things: several days 2. Feeling down, depressed, or hopeless: not at all 3. Trouble falling or staying asleep, or sleeping too much: several days 4. Feeling tired or having little energy: several days 5. Poor appetite or overeating: not at all 6. Feeling bad about yourself - or that you are a failure or have let yourself or your family down: not at all 7. Trouble concentrating on things, such as reading the newspaper or watching television: not at all 8. Moving or speaking so slowly that other people could have noticed. Or the opposite - being so fidgety or restless that you have been moving around a lot more than usual: not at all 9. Thoughts that you would be better off or of hurting yourself in some way: not at all Total score: 3 Depression Screening Interpretation: Negative Depression Screening Done: Yes 33414 - PHQ-9 Billing: Yes Source: Developed by Drs. Reece Medina, Brionna Sewell, Tarun Antony and colleagues, with an educational ree from [employer]. Thrive Questionnaire Date Thrive assessed: 02/01/24 I am a: Patient What is your living situation today?: I have a steady place to live Within the past 12 months, did the food you bought not last and you didn't have the money to get more?: Never true Within the past 12 months, did you worry whether your food would run out before you got money to buy more?: Never true Do you have trouble paying for medicines?: No Do you have trouble getting transportation to medical appointments?: No Do you have trouble paying your heating and electricity bill?: No Do you have trouble taking care of your child, family member or friend?: No Do you have trouble with day-to-day activities such as bathing, preparing meals, shopping, managing finances, etc.?: No Are you currently unemployed and looking for a job?: No Are you interested in more education?: No THRIVE Score: 0 AUDIT C Alcohol Use Questionnaire (AUDIT-C) 1. How often do you have a drink containing alcohol?: Never Total Score: 0 CHRISTI-7 AMB Questionnaire CHRISTI-7 Date CHRISTI - 7 assessed: 02/01/24 Feeling nervous, anxious, or on edge: 0 = Not at all Not being able to stop or control worryin = Not at all Worrying too much about different things: 0 = Not at all Trouble relaxin = Not at all Being so restless that it is hard to sit still: 0 = Not at all Becoming easily annoyed or irritable: 0 = Not at all Feeling afraid as if something awful might happen: 0 = Not at all Total CHRISTI-7 score (0-4 normal; 5-9 mild; 10-14 moderate; 15-21 severe): 0 Source: Developed by Drs. Reece Medina, Brionna Sewell, Tarun Antony and colleagues, with an educational ree from [employer]. CHRISTI-7 Assessment Billing CHRISTI-7 Assessment Tool: CHRISTI-7 Assessment 10255 Review of Systems Const Denies weakness ENT Denies dizziness Card Denies chest pain, Denies chest pain with activity, Denies syncope, Denies rapid heart rate, Denies pedal edema, Denies lightheadedness, Denies palpitations and Denies dyspnea on exertion Resp Denies cough and Denies dyspnea on exertion GI Denies abdominal pain, Denies melena, Denies hematochezia and Denies change in bowel habits Musc Denies abnormal gait, Denies muscle cramps, Denies muscle weakness, Denies numbness and Denies tingling Neuro Denies abnormal gait, Denies dizziness, Denies syncope, Denies numbness, Denies tingling and Denies weakness Endo Denies palpitations Physical exam (Primary Care) Vital Signs: Last Vital Signs Pulse 92 02/01/24 11:08 BP 104/60 02/01/24 11:08 Pulse Ox 93 02/01/24 11:08 Oxygen Delivery Method Room Air 02/01/24 11:08 BMI result Body Mass Index 28.5 Tobacco/Smoking Status: Tobacco use Status Tobacco use date assessed 02/01/24 02/01/24 10:44 Patient Tobacco Use Status Former Tobacco user 02/01/24 10:44 e-Cigarette/Vaping Use Never Used 02/01/24 10:44 PHQ-9: PHQ-9 Score PHQ-9: Total score 3 02/01/24 11:41 Depression Screening Interpretation: Negative Thrive Assessment: Date of Thrive Assessment Date Thrive assessed 02/01/24 02/01/24 11:13 Const Other: Alert oriented x3, no acute distress noted, ambulatory with normal gait, looks younger than stated age Nutritional Appearance: average body habitus Orientation/consciousness: patient oriented x3 HENMT Face and sinus: Yes face symmetric Mouth: moist mucous membranes Eyes General: appearance normal, both eyes and all related structures Neck Neck: Yes full ROM, Yes no lymphadenopathy and Yes supple Resp Effort & Inspection: normal respiratory effort and able to speak in complete sentences Auscultation: clear to auscultation bilaterally Cardio Palpation: normal PMI Rate: regular rate Rhythm: regular rhythm Heart sounds: S1 normal heart sound present, S2 normal heart sound present and Murmur heart sound present Bruits: carotid bruit bilaterally GI Inspection: Yes normal to inspection Palpation (GI): Soft to palpation, nontender, no guarding and no masses Auscultation: normal bowel sounds Neuro General: patient oriented x3, gait normal, tone normal, moves all extremities, Normal light touch and pain sensation, no focal motor deficits and CN's II-XI intact bilaterally Cranial nerves: Yes CN's II-XII intact bilaterally Cognition (Neuro): normal cognition Gait exam (Neuro): Normal gait present Results Reviewed Results Reviewed: RUN: 02/06/24 7975 PAGE 1 [facility] [address] [place] [id number] Scale Agent: Boone Schneider M.D. Specimen Inquiry Name: Beckie Lira Age/Sex: 88/F : 1935 Unit#: [id number] Attend Dr: Savana Cordoba MD Re11/02/23 Status: DEP [facility]F [facility] Disch: SPEC : [id number] MONICA: 11/02/23 STATUS: COMP REQ : [id number] RECD: 11/02/[address]: Savana Cordoba MD COMP: 11/02/23 ENTERED: 11/02/[address]: ORDERED: Met Prof Fast, Lipid Panel, Free T4, TSH Test Result Flag Reference Sodium 142 135-145 mmol/L Potassium 3.9 3.3-5.1 mmol/L CL 104 96-108 mmol/L CO2 26 22-29 mmol/L Gap 16 12-20 BUN 34 H 9-16 mg/dL Creat 1.30 0.5-1.4 mg/dL EGFR 39 NOTE: For -Tristanian individuals, multiply the result by 1.210. Chronic Kidney Disease: Estimated GFR < 60 mL/min/1.73m2 Severe Kidney Disease: Estimated GFR < 15 mL/min/1.73m2 FBS 130 H 60-99 mg/dL A fasting glucose of 126 mg/dl or greater on more than one occasion is considered diagnostic of diabetes. CA 10.1 8.4-10.2 mg/dL Triglyceride 133 <150 mg/dL Desirable Triglyceride: less than 150 mg/dL Borderline High Triglyceride 150-199 mg/dL High Triglyceride: 200-499 mg/dL Very High Triglyceride: greater than or equal to 5OO mg/dL Cholesterol 152 <200 mg/dL Desirable Cholesterol: less than 200 mg/dL Borderline High Cholesterol: 200-239 mg/dL High Cholesterol: greater than 239 mg/dL LDL Calculated 81 <100 mg/dL Desirable LDL: less than 100 mg/dL Near Optimal/Above Optimal LDL: 110-129 mg/dL Borderline High LDL: 130-159 mg/dL High LDL: 160-189 mg/dL Very High LDL: greater than or equal to 190 mg/dL HDL 45 >40 mg/dL Desirable HDL: greater than 40 mg/dL Note: This HDL assay may give artificially low results in patients with liver disease. Free T4 1.13 0.71-1.85 ng/dL TSH 3rd Gen. 0.43 0.32-4.0 uIU/mL TSH 3rd Generation ([facility]) Assessment and Plan Assessment & Plan (1) Dyslipidemia: Code(s): E78.5 - Hyperlipidemia, unspecified Plan: Last fasting lipids done October 2023 showed results within normal limits, she has been compliant with her diet, and regular exercise, currently on atorvastatin 40 mg daily (2) Essential hypertension: Code(s): I10 - Essential (primary) hypertension Plan: Blood pressure within normal limits. Continued on hydrochlorothiazide, amlodipine and losartan Coding Level of Care Code Est Pt Level 4 (12638) Diagnoses Dyslipidemia E78.5 Essential hypertension I10 Additional Codes CHRISTI-7 Assessment Billing - CHRISTI-7 Assessment Tool: CHRISTI-7 Assessment 09769 ([id number])
[2024-02-01 11:08] VITALS: BP 104/60; PULSE 92; O2SAT 93; BMI 28.5
== END 2024-02-01 13:24 | disposition home or self-care (01) ==
LOC: HO.HMGC 10:33
PROVIDERS: PCP Internal Medicine; Visit Provider Internal Medicine
DX: E78.5 Hyperlipidemia, unspecified (principal); I10 Essential (primary) hypertension
CPT/HCPCS: 99214

== ENCOUNTER 2024-02-14 09:51 | Outpatient (AMB) | payer MEDICARE, SELFPAY ==
[2024-02-14 10:46] VITALS: BP 112/62; PULSE 57; O2SAT 95; BMI 27.8
--- NOTE | 2024-02-14 10:46 | MHC.PC.OV ---
Vital Signs 02/14/24 10:46 Height 5 ft 1 in Weight 147 lb BMI 27.8 BP 112/62 Blood Pressure Location Lt brachial Position Sitting Pulse 57 Pulse Source Pulse Oximeter Pulse Oximetry (%) 95 Oxygen Delivery Method Room Air Intake Visit Reasons: [facility] Intake Note: Pt is here today for her [facility] Allergies lisinopril Adverse Reaction (Verified 02/14/24 11:19) unknown avandia Allergy (Severe, Uncoded 02/14/24 11:19) swelling of tongue Medication List - Last Reconciled 02/14/24 by Savana Cordoba MD apixaban (Eliquis) 2.5 mg PO BID atorvastatin 40 mg PO DAILY glipizide 10 mg PO BID 90 days insulin glargine U-300 conc (Toujeo SoloStar U-300 Insulin) 32 units subcut levothyroxine 112 mcg PO DAILY losartan 100 mg PO DAILY [id number]-wowm-FA-vit K-lut 8 mg iron-400 mcg-50 mcg (Centrum Silver Women) 1 tab PO DAILY ondansetron HCl 4 mg PO Q8H Tobacco use date assessed: 02/14/24 Dental Screening Dental Screen Date: 02/14/24 Did you have a dental visit in the last 12 months?: Yes Did you have a dental problem in the last 6 months where you did not have access to dental care?: No Was dental information given to patient?: Patient has dentist HPI [facility] HPI Details 88-year-old lady with past medical history significant for hypertension, breast cancer status post lumpectomy and radiation, has GERD, irritable bowel syndrome, diabetes mellitus, hypothyroidism and dyslipidemia who was recently admitted at [facility] with complaint of worsening fatigue, malaise as, shortness of breath and cough. She was found to be in new onset atrial fibrillation., TSH was within normal limits. [facility] Cardiology saw patient and recommended rate control of treatment for now with metoprolol and digoxin started on 02/04/2024. However the latter was stopped by daughter upon her discharge. Echocardiogram was done with EF preserved at 60-65%, a was unable to assess diastolic function. Patient had poor response to metoprolol and which was discontinued and she was started on diltiazem. CHADS score was and patient was also started on anticoagulation with Eliquis, dose adjusted to 2.5 mg twice daily.. A CT of the chest done during admission showed elevated white count on presentation. Initially thought to have pulmonary edema and was given a trial of Lasix with no clinical improvement. Pulmonary so patient and highly suspected her to have underlying interstitial lung disease. She was also given course of antibiotics with some improvement in her breathing and was taken off supplemental oxygen. It was also noted on the CT of the chest that her right diaphragm was elevated, concerning for diaphragmatic Sniff test could not be done as the results would not be accurate in the setting of opacities seen in recent x-ray. She is to see pulmonary for follow-up in 4-6 weeks. No steroid was recommended by Pulmonary. She is also scheduled to follow-up with thoracic surgery with regards to presence of elevated right hemidiaphragm She had JANES superimposed on CKD which improved with hydration On the dental finding of 4.9 cm cystic pancreatic lesion was seen on CT scan , recommendation by Radiology and Oncology was to have follow-up with MRCP in 2 year For her hypertension she was continued on losartan 100 mg once a day and amlodipine and hydrochlorothiazide was discontinued. Levothyroxine was resumed at 112 mcg daily for treatment of hypothyroidism.. Atorvastatin was resumed on discharge for treatment of hyperlipidemia, and she was continued on Trulicity, Lantus and glipizide for treatment of her type 2 diabetes mellitus Present patient still having nausea specially after food intake accompanied by feeling of gassiness and still with generalized muscle weakness. Daughter has been noticing that patient has been getting more short of breath on exertion. Has been afebrile. Requesting Rollator with walker, as recommended by Physical therapy who saw her during her admission at [facility]. [facility] Medical History (Updated 02/21/24 @ 03:32 by Savana Cordoba MD) Shortness of breath on exertion New onset atrial fibrillation Elevated hemidiaphragm Cyst of pancreas Moderate aortic valve stenosis Mitral and aortic regurgitation Osteoarthritis of hip Dyspnea on exertion Systolic ejection murmur Fracture of left wrist Essential hypertension History of left breast cancer IBS (irritable bowel syndrome) Acquired hypothyroidism Dyslipidemia Diabetes mellitus, with long-term current use of insulin Surgical History History of bladder suspension procedure History of cholecystectomy History of lumpectomy of left breast Social History Housing: House Patient Tobacco Use Status: Former Tobacco user e-Cigarette/Vaping Use: Never Used service: No Current occupational status: retired Cognitive needs: No Hearing needs: Yes Vision needs: Yes Questionnaire Thrive Questionnaire Date Thrive assessed: 02/01/24 CHRISTI-7 AMB Questionnaire CHRISTI-7 Date CHRISTI - 7 assessed: 02/01/24 Source: Developed by Drs. Reece Medina, Brionna Sewell, Tarun Antony and colleagues, with an educational ree from [employer]. Review of Systems Const Reports fatigue, Denies headache(s), Reports malaise and Reports weakness Eyes Denies change in vision ENT Reports no additional complaints and Denies headache(s) Card Denies chest pain, Denies chest pain at rest, Denies rapid heart rate, Denies lightheadedness and Reports dyspnea on exertion Resp Denies cough and Reports dyspnea on exertion GI Reports as per HPI, Denies melena, Reports bloating, Denies hematochezia, Reports dyspepsia and Reports nausea Reports no additional complaints Musc Reports as per HPI Skin/Breast Denies rash and Denies unusual bruising Neuro Denies headache(s), Denies Sensory deficit (Neuro) and Reports weakness Endo Reports fatigue and Denies polydipsia Scott/Lymph Denies easy bleeding and Denies easy bruising Aller/Immun Reports no additional complaints Physical exam (Primary Care) Vital Signs: Last Vital Signs Pulse 57 02/14/24 10:46 BP 112/62 02/14/24 10:46 Pulse Ox 95 02/14/24 10:46 Oxygen Delivery Method Room Air 02/14/24 10:46 BMI result Body Mass Index 27.8 Tobacco/Smoking Status: Tobacco use Status Tobacco use date assessed 02/14/24 02/14/24 10:56 Patient Tobacco Use Status Former Tobacco user 02/14/24 10:56 e-Cigarette/Vaping Use Never Used 02/14/24 10:56 Thrive Assessment: Date of Thrive Assessment Date Thrive assessed 02/01/24 02/14/24 10:56 Const Other: Frail looking elderly female, accompanied by daughter and granddaughter General: no acute distress, awake and Physically active Nutritional Appearance: average body habitus Orientation/consciousness: patient oriented x3 HENMT Head: Yes normocephalic Face and sinus: Yes face symmetric Mouth: Normal oral and palatal mucosa present, oropharynx normal and moist mucous membranes Eyes General: appearance normal, both eyes and all related structures Neck Neck: Yes full ROM, Yes no lymphadenopathy and Yes supple Resp Auscultation: crackles bilateral at the base Cardio Rhythm: abnormal rhythm irregularly irregular GI Palpation (GI): Soft to palpation, nontender, no guarding and no masses Skin General skin exam: no rashes or lesions noted Neuro General: patient oriented x3, moves all extremities, no focal motor deficits and CN's II-XI intact bilaterally Gait exam (Neuro): Assistive device used (Walker) Sensory Exam: No Sensory deficit (Neuro) Extrem Other: . Pedal edema General: Yes full ROM, Yes no joint enlargement and Yes no calf tenderness Results Reviewed Results Reviewed: Labs done at [facility] 02/07/2024 showed hemoglobin at 11.8 with hematocrit 39.6, WBC 14.9 with absolute neutrophils 20.4 and absolute monocytes 1.8, lymph 5.8%, platelet count 294. ProBNP 7503 on 02/05/2024 On 02/08/2024- Her sodium was 136, potassium 3.9, chloride 96, bicarb 26, anion gap 14, glucose 168, hemoglobin A1c 8.3%, BUN was 30, creatinine 1.5 with EGFR 34, calcium 8.8, magnesium 2.1, total protein 6.2, albumin 3.3, alkaline phosphatase 91, AST 20, ALT 50 , total bilirubin is 0.6 02/03/2024 - TSH at 0.48 Sed rate 79 Rheumatoid factor 28 02/07/2024, digoxin level 1 point UA negative COVID negative Assessment and Plan Assessment & Plan (1) New onset atrial fibrillation: Code(s): I48.91 - Unspecified atrial fibrillation Plan: TSH within normal limits, seen by [facility] Cardiology who started her on Cardizem and resume digoxin as well as Eliquis 2.5 mg 1 tablet twice a day (2) History of pneumonia: Code(s): Z87.01 - Personal history of pneumonia (recurrent) Plan: Patient already completed a course of antibiotics, no steroids recommended by Pulmonary. She has an appointment with Dr Kelly Sewell at [facility] on 03/30/2024 (3) Shortness of breath on exertion: Code(s): R06.02 - Shortness of breath Plan: No response to Lasix during recent admission, will repeat another CBC. 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 Has appointments already scheduled with thoracic and unattended ground sensor specialist at [facility], advised to call again and try to reschedule pulmonary appointment to an earlier date. Advised her to the ER if shortness of breath worsens especially if accompanied by chest pain and lightheadedness (4) Generalized muscle weakness: Code(s): M62.81 - Muscle weakness (generalized) Plan: Prescription written for Rollator walker with seat (5) Unstable gait: Code(s): R26.81 - Unsteadiness on feet Plan: Prescription sent for Rollator walker with seat (6) Elevated hemidiaphragm: Comment: On right Code(s): J98.6 - Disorders of diaphragm Plan: Has an appointment with thoracic surgeon, Dr. Aries Fowler on 02/29/2024 (7) Cyst of pancreas: Comment: Radiology and Oncology Recommended follow-up in 2 years with MRCP Code(s): K86.2 - Cyst of pancreas Plan: As per radiology and oncology recommendations, to follow-up in 2 years with MRCP (8) Dyslipidemia: Code(s): E78.5 - Hyperlipidemia, unspecified Plan: Continued on atorvastatin 40 mg daily (9) Diabetes mellitus, with long-term current use of insulin: Code(s): E11.9 - Type 2 diabetes mellitus without complications; Z79.4 - intermediate manager (current) use of insulin Plan: Followed by endocrine clinic at [facility], has appointment 02/24/2024, currently on glipizide, Arjun (10) Acquired hypothyroidism: Code(s): E03.9 - Hypothyroidism, unspecified Plan: Continue with levothyroxine 112 mcg daily (11) Essential hypertension: Code(s): I10 - Essential (primary) hypertension Plan: Continued on losartan 100 mg once a day (12) Dyspepsia: Code(s): R10.13 - Epigastric pain Plan: Started on famotidine 40 mg once a day as well as simethicone to take as needed for increased gassiness and bloating, prescription sent also for ondansetron 4 mg per tablet to take 1 every 8 hours as needed for nausea. Orders: Orders Complete Blood Count Auto Diff 02/14/24 Z87.01 - Personal history of pneumonia (recurrent) Medications: New famotidine 40 mg PO DAILY 30 tabs 3RF simethicone (Gas Relief (simethicone)) 125 mg PO BID PRN 30 caps 0RF Gassiness ondansetron HCl 4 mg PO Q8H 1 month PRN 90 tabs 0RF nausea and vomiting [Rollator with seat] As directed 1 ea 0RF Generalized muscle weakness M62.81 - Muscle weakness (generalized), R26.81 - Unsteadiness on feet Coding Level of Care Code Est Pt Level 5 (38945) Diagnoses New onset atrial fibrillation I48.91 History of pneumonia Z87.01 Shortness of breath on exertion R06.02 Generalized muscle weakness M62.81 Unstable gait R26.81 Elevated hemidiaphragm J98.6 Cyst of pancreas K86.2 Dyslipidemia E78.5 Diabetes mellitus, with long-term current use of insulin E11.9; Z79.4 Acquired hypothyroidism E03.9 Essential hypertension I10 Dyspepsia R10.13
== END 2024-02-14 14:41 | disposition home or self-care (01) ==
PROVIDERS: PCP Internal Medicine; Visit Provider Internal Medicine
DX: I48.91 Unspecified atrial fibrillation (principal); E11.9 Type 2 diabetes mellitus without complications; Z79.4 Long term (current) use of insulin; Z87.01 Personal history of pneumonia (recurrent); R06.02 Shortness of breath; M62.81 Muscle weakness (generalized); R26.81 Unsteadiness on feet; J98.6 Disorders of diaphragm; K86.2 Cyst of pancreas; E78.5 Hyperlipidemia, unspecified; E03.9 Hypothyroidism, unspecified; I10 Essential (primary) hypertension
CPT/HCPCS: 99215

== ENCOUNTER 2024-02-14 12:08 | Outpatient (REF) | payer MEDICARE, SELFPAY ==
[2024-02-14 13:55] LABS: MANUAL DIFF FLAG NO
[2024-02-14 14:00] LABS: Basophils Absolute Auto 0.1 X10*3/uL (0.0-0.2); Basophils Percent Auto 0.3 % (0-2); Eosinophils Percent Auto 0.1 % (0-4); Hematocrit 38.4 % (37.0-47.0); Hemoglobin 12.6 g/dl (12.0-16.0); Imm Gran Abs Auto 0.08 X10*3/uL (0.00-0.03); Imm Gran Pct Auto 0.5 % (0.0-0.4); Lymphocytes Percent Auto 18.6 % (20-40); Mean Corpuscular HGB Conc 32.8 g/dl (31.0-35.0); Mean Corpuscular Hemoglobin 29.8 pg (27.0-33.0); Mean Corpuscular Volume 90.8 fL (80.0-98.0); Mean Platelet Volume 11.6 fL (9.4-12.3); Monocytes Percent Auto 6.1 % (2-11); Neutrophils Absolute Auto 11.8 x10*3/uL (2.0-8.3); Neutrophils Percent Auto 74.4 % (45-73); Platelet Count 341 X10*3/uL (160-400); Red Blood Count 4.23 X10*6/uL (4.20-5.50); Red Cell Distribution Width 13.2 % (11.0-16.0); White Blood Count 15.8 X10*3/uL (4.8-10.8)
== END 2024-02-14 12:09 | disposition home or self-care (01) ==
LOC: HO.HMGCLDS 12:08
PROVIDERS: PCP Internal Medicine; Visit Provider Internal Medicine
DX: Z87.01 Personal history of pneumonia (recurrent) (principal)
CPT/HCPCS: 36415; 85025

== ENCOUNTER 2024-02-21 10:10 | Outpatient (AMB) | payer MEDICARE, SELFPAY ==
[2024-02-21 10:12] VITALS: BP 114/58; PULSE 96; BMI 28.3
--- NOTE | 2024-02-21 10:12 | MHC.OFFVIS ---
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 Accompanied by: Family/Other Allergies lisinopril Adverse Reaction (Verified 02/21/24 10:14) unknown avandia Allergy (Severe, Uncoded 02/21/24 10:14) swelling of tongue Medication List - Last Reconciled 02/21/24 by Efra Solo MD apixaban (Eliquis) 2.5 mg PO BID atorvastatin 40 mg PO DAILY cefixime 400 mg PO DAILY 5 days digoxin 125 mcg PO .qod diltiazem HCl ER (DILT-XR) mg PO BID dulaglutide (Trulicity) 0.75 mg subcut QWEEK famotidine 40 mg PO DAILY glipizide 10 mg PO BID 90 days insulin glargine U-300 conc (Toujeo SoloStar U-300 Insulin) 32 units subcut levothyroxine 112 mcg PO DAILY losartan 100 mg PO DAILY imxcxchn-cui-tvyy-FA-vit K-lut 8 mg iron-400 mcg-50 mcg (Centrum Silver Women) 1 tab PO DAILY ondansetron HCl 4 mg PO Q8H PRN 1 month [Rollator with seat As directed] simethicone (Gas Relief (simethicone)) 125 mg PO BID PRN HPI HPI Comments History of Present Illness Details Lachelle returns for follow-up. Recently seen in consultation regarding shortness of breath. At that time, thought to have moderate aortic stenosis but not entirely adequate to explain her symptoms. Any case, it seems that she was then admitted to [facility] with pneumonia and that context, had atrial fibrillation rapid rate. Sent on rate control meds including digoxin/diltiazem. She states she is still feeling somewhat short of breath. No angina. No previous history of any cardiomyopathy. No known coronary disease or myocardial infarction. [facility] Medical History (Updated 02/21/24 @ 03:32 by Savana Cordoba MD) Shortness of breath on exertion New onset atrial fibrillation Elevated hemidiaphragm Cyst of pancreas Moderate aortic valve stenosis Mitral and aortic regurgitation Osteoarthritis of hip Dyspnea on exertion Systolic ejection murmur Fracture of left wrist Essential hypertension History of left breast cancer IBS (irritable bowel syndrome) Acquired hypothyroidism Dyslipidemia Diabetes mellitus, with long-term current use of insulin Surgical History History of bladder suspension procedure History of cholecystectomy History of lumpectomy of left breast Social History Housing: House Patient Tobacco Use Status: Former Tobacco user e-Cigarette/Vaping Use: Never Used service: No Current occupational status: retired Cognitive needs: No Hearing needs: Yes Vision needs: Yes Review of Systems Const Denies weakness ENT Denies dizziness Card Denies chest pain, Denies chest pain with activity, Denies syncope, Denies rapid heart rate, Denies pedal edema, Denies edema, Denies leg edema, Denies lightheadedness, Denies palpitations, Denies dyspnea, Denies dyspnea on exertion and Denies orthopnea Resp Denies cough, Denies dyspnea and Denies dyspnea on exertion GI Denies hematochezia and Denies change in stool character Musc Denies abnormal gait, Denies muscle cramps, Denies muscle weakness, Denies numbness, Denies radiating pain into limb and Denies tingling Neuro Denies abnormal gait, Denies dizziness, Denies syncope, Denies numbness, Denies tingling and Denies weakness Endo Denies palpitations Physical Exam Vital Signs: Last Vital Signs Pulse 96 02/21/24 10:12 BP 114/58 L 02/21/24 10:12 BMI result Body Mass Index 28.3 Const General: comfortable and no acute distress Orientation/consciousness: patient oriented x3 HEENT Other: Unremarkable Head: Yes normal to inspection Neck Neck: Yes normal visual inspection Chest Chest palpation & inspection: normal inspection of the chest Resp Auscultation: crackles Cardio Palpation: normal PMI Heart sounds: S1 normal heart sound present, S2 normal heart sound present, no gallops, Murmur heart sound present systolic II/ and at the right sternal border and no rubs GI Palpation (GI): Soft to palpation Back/Spine/Pelvis Other: unremarkable Skin General skin exam: no rashes or lesions noted Neuro General: patient oriented x3 Extrem General: Yes normal to inspection Psych Mental Status: mental status grossly normal Assessment & Plan Assessment & Plan (1) Moderate aortic valve stenosis: Code(s): I35.0 - Nonrheumatic aortic (valve) stenosis Plan: In the most recent echocardiogram from [facility], moderately calcified aortic valve with [id number] stenosis and mild regurgitation. Clinically not significant at this time. We will follow this echocardiograms. Pathophysiology, symptoms, plan of care discussed with patient and family. (2) New onset atrial fibrillation: Code(s): I48.91 - Unspecified atrial fibrillation Plan: Recent diagnosis at [facility] in the context of hospitalization for respiratory failure/pneumonia. On diltiazem/digoxin. Check digoxin levels. Check BMP. With regard to Eliquis, she is on 2.5 mg b.i.d.. Per [facility] [place], creatinine was 1.5. We can recheck. If there is improvement, then probably increase the dose to 5 mg b.i.d.. Obtain Holter. We discussed about potentially cardioversion. Be decided. Of note, she was short of breath even before atrial fibrillation and hence not entirely the etiology. Plan Total time spent including review of data, counseling, documentation, discussion with family-40 minutes. Orders: Orders Basic Metabolic Panel Today I48.91 - Unspecified atrial fibrillation Digoxin Today I48.91 - Unspecified atrial fibrillation Coding Level of Care Code Est Pt Level 4 (65413) Diagnoses Moderate aortic valve stenosis I35.0 New onset atrial fibrillation I48.91
== END 2024-02-21 10:41 | disposition home or self-care (01) ==
PROVIDERS: PCP Internal Medicine; Visit Provider Internal Medicine
DX: I48.91 Unspecified atrial fibrillation (principal); I49.3 Ventricular premature depolarization
CPT/HCPCS: 93244; 99214

== ENCOUNTER → 2024-02-21 10:44 | Outpatient (REF) | payer MEDICARE, SELFPAY ==
--- NOTE | 2024-02-21 10:48 | HM_ITS ---
Conclusion: 1. Patient was monitored for total period of 2 days and 22 hours 2. Baseline was atrial fibrillation/flutter with average heart of 92 beats per minute with borderline rate control 3. Rare PVCs noted 4. No significant pauses noted 5. No patient reported events MTDD
== END ==
LOC: HO.CARD 10:44
PROVIDERS: PCP Internal Medicine; Visit Provider Internal Medicine
DX: R00.2 Palpitations (principal); I35.0 Nonrheumatic aortic (valve) stenosis; I48.91 Unspecified atrial fibrillation
CPT/HCPCS: 93242; 99212

== ENCOUNTER 2024-02-22 08:28 | Outpatient (REF) | payer MEDICARE, SELFPAY ==
[2024-02-22 13:18] LABS: Sodium 142 mmol/L (135-145)
[2024-02-22 13:19] LABS: Anion Gap 10 (12-20); Blood Urea Nitrogen 20 mg/dL (9-16); Calcium 9.1 mg/dL (8.4-10.2); Carbon Dioxide 27 mmol/L (22-29); Chloride 109 mmol/L (96-108); Estimated Glomerular Filt Rate 45; Glucose Random 122 mg/dL (60-115); Potassium 4.4 mmol/L (3.3-5.1)
[2024-02-22 13:22] LABS: Digoxin 0.7 ng/mL (0.8-2.0)
== END 2024-02-22 08:29 | disposition home or self-care (01) ==
LOC: HO.HMGCLDS 08:28
PROVIDERS: PCP Internal Medicine; Visit Provider Internal Medicine
DX: I48.91 Unspecified atrial fibrillation (principal)
CPT/HCPCS: 36415; 80048; 80162

== ENCOUNTER 2024-04-03 15:08 | Outpatient (AMB) | payer MEDICARE, SELFPAY ==
[2024-04-03 15:18] VITALS: BP 138/68; PULSE 86; O2SAT 99; BMI 27.9
--- NOTE | 2024-04-03 15:18 | MHC.OFFVIS ---
Vital Signs 04/03/24 15:18 Height 5 ft 1 in Weight 147 lb 11.355 oz BMI 27.9 BP 138/68 Blood Pressure Location Lt brachial Position Sitting Pulse 86 Pulse Source Pulse Oximeter Pulse Oximetry (%) 99 Oxygen Delivery Method Room Air Intake Visit Reasons: holter f/up Allergies lisinopril Adverse Reaction (Verified 02/21/24 10:14) unknown avandia Allergy (Severe, Uncoded 02/21/24 10:14) swelling of tongue Medication List - Last Reconciled 04/03/24 by Efra Solo MD apixaban 5 mg PO BID 90 days atorvastatin 40 mg PO DAILY digoxin 125 mcg PO .qod 90 days diltiazem HCl ER (DILT-XR) 180 mg PO BID dulaglutide (Trulicity) 0.75 mg subcut QWEEK famotidine 40 mg PO DAILY glipizide 10 mg PO BID 90 days insulin glargine U-300 conc (Toujeo SoloStar U-300 Insulin) 32 units subcut levothyroxine 112 mcg PO DAILY losartan 100 mg PO DAILY metoprolol tartrate 25 mg PO BID 90 days icalzxfl-zkl-vsyn-FA-vit K-lut 8 mg iron-400 mcg-50 mcg (Centrum Silver Women) 1 tab PO DAILY ondansetron HCl 4 mg PO Q8H PRN 1 month [Rollator with seat As directed] simethicone (Gas Relief (simethicone)) 125 mg PO BID PRN HPI Comments Details: Lachelle returns for follow-up. Recently seen in consultation regarding shortness of breath. At that time, thought to have moderate aortic stenosis but not entirely adequate to explain her symptoms. Subsequently, she was admitted to [facility] with pneumonia and then had atrial fibrillation rapid rate. She is on rate control medications with diltiazem as well as digoxin. Metoprolol was then added but she states she is getting diary with that. Otherwise, main complaint is shortness of breath. Of note, she was complaining of shortness of breath even when she was in sinus rhythm in the initial encounter. Hence atrial fibrillation is likely not the etiology for that. She has been seen at [facility] pulmonary and has working diagnosis of interstitial lung disease. Further testing is being done. [facility], [facility] Medical History (Updated 02/21/24 @ 03:32 by Savana Cordoba MD) Shortness of breath on exertion New onset atrial fibrillation Elevated hemidiaphragm Cyst of pancreas Moderate aortic valve stenosis Mitral and aortic regurgitation Osteoarthritis of hip Dyspnea on exertion Systolic ejection murmur Fracture of left wrist Essential hypertension History of left breast cancer IBS (irritable bowel syndrome) Acquired hypothyroidism Dyslipidemia Diabetes mellitus, with long-term current use of insulin Surgical History History of bladder suspension procedure History of cholecystectomy History of lumpectomy of left breast Social History Housing: House Patient Tobacco Use Status: Former Tobacco user e-Cigarette/Vaping Use: Never Used service: No Current occupational status: retired Cognitive needs: No Hearing needs: Yes Vision needs: Yes Review of Systems Const Denies weakness ENT Denies dizziness Card Denies chest pain, Denies chest pain with activity, Denies syncope, Denies rapid heart rate, Denies pedal edema, Denies edema, Denies leg edema, Denies lightheadedness, Denies palpitations, Denies dyspnea, Denies dyspnea on exertion and Denies orthopnea Resp Denies cough, Denies dyspnea and Denies dyspnea on exertion GI Denies hematochezia and Denies change in stool character Musc Denies abnormal gait, Denies muscle cramps, Denies muscle weakness, Denies numbness, Denies radiating pain into limb and Denies tingling Neuro Denies abnormal gait, Denies dizziness, Denies syncope, Denies numbness, Denies tingling and Denies weakness Endo Denies palpitations Physical Exam Vital Signs: Last Vital Signs Pulse 86 04/03/24 15:18 BP 138/68 04/03/24 15:18 Pulse Ox 99 04/03/24 15:18 Oxygen Delivery Method Room Air 04/03/24 15:18 BMI result Body Mass Index 27.9 Const General: comfortable and no acute distress Orientation/consciousness: patient oriented x3 HEENT Other: Unremarkable Head: Yes normal to inspection Neck Neck: Yes normal visual inspection Chest Chest palpation & inspection: normal inspection of the chest Resp Auscultation: crackles and diminished lung sounds Cardio Palpation: normal PMI Heart sounds: S1 normal heart sound present, S2 normal heart sound present, no gallops, no murmurs and no rubs GI Palpation (GI): Soft to palpation Back/Spine/Pelvis Other: unremarkable Skin General skin exam: no rashes or lesions noted Neuro General: patient oriented x3 Extrem General: Yes normal to inspection Psych Mental Status: mental status grossly normal Assessment & Plan Assessment & Plan (1) Moderate aortic valve stenosis: Code(s): I35.0 - Nonrheumatic aortic (valve) stenosis Category: Medical Plan: In the most recent echocardiogram from [facility], moderately calcified aortic valve with [id number] stenosis and mild regurgitation. Clinically not significant at this time. We will follow this echocardiograms. (2) New onset atrial fibrillation: Code(s): I48.91 - Unspecified atrial fibrillation Category: Medical Plan: Recent diagnosis at [facility] in the context of hospitalization for respiratory failure/pneumonia. On a combination diltiazem, digoxin, metoprolol. She is getting diarrhea with metoprolol. Hence we can try to switch that to atenolol. Otherwise, continue anticoagulation without changes. We discussed about cardioversion but at her age and with interstitial lung disease, we will try to avoid as much able. Additionally, she was short of breath even before the onset of atrial fibrillation and hence most likely that is not the etiology. Symptoms likely from lung disease. (3) Essential hypertension: Code(s): I10 - Essential (primary) hypertension Category: Medical Plan: As we are adding atenolol, we can decrease the losartan to 50 mg daily. Plan Total time spent including review of data, counseling, documentation, discussion with family- 35minutes. Orders: Orders ECG 3 day holter monitor 2 Months I48.91 - Unspecified atrial fibrillation, R00.2 - Palpitations Medications: New atenolol 50 mg PO DAILY 90 tabs 3RF Discontinued metoprolol tartrate Discontinued Reason: Doctor's Order 25 mg PO BID 90 days 180 tabs 3RF Coding Level of Care Code Est Pt Level 4 (23858) Diagnoses Moderate aortic valve stenosis I35.0 New onset atrial fibrillation I48.91 Essential hypertension I10
== END 2024-04-03 15:48 | disposition home or self-care (01) ==
PROVIDERS: PCP Internal Medicine; Visit Provider Internal Medicine
DX: I35.0 Nonrheumatic aortic (valve) stenosis (principal); I48.91 Unspecified atrial fibrillation; I10 Essential (primary) hypertension
CPT/HCPCS: 99214

== ENCOUNTER → 2024-04-03 15:08 | Outpatient (BNVA) | payer MEDICARE, SELFPAY | PROVIDERS: PCP Internal Medicine; Visit Provider Internal Medicine | DX: I35.0 Nonrheumatic aortic (valve) stenosis (principal); I48.91 Unspecified atrial fibrillation; I10 Essential (primary) hypertension | CPT/HCPCS: 99212 ==

== ENCOUNTER 2024-05-16 10:42 | Outpatient (AMB) | payer MEDICARE, SELFPAY ==
[2024-05-16 11:10] VITALS: BP 118/62; PULSE 68; O2SAT 98; BMI 26.8
--- NOTE | 2024-05-16 11:10 | MHC.PC.OV ---
Vital Signs 05/16/24 11:10 Height 5 ft 1 in Weight 142 lb BMI 26.8 BP 118/62 Blood Pressure Location Rt brachial Position Sitting Pulse 68 Pulse Source Pulse Oximeter Pulse Oximetry (%) 98 Oxygen Delivery Method Room Air Intake Visit Reasons: 3 month follow up Intake Note: Pt is here today for her 3 mo. f/u Allergies lisinopril Adverse Reaction (Verified 05/16/24 11:28) unknown avandia Allergy (Severe, Uncoded 05/16/24 11:28) swelling of tongue Medication List - Last Reconciled 05/16/24 by Savana Cordoba MD apixaban 5 mg PO BID 90 days atenolol 50 mg PO DAILY atorvastatin 40 mg PO DAILY diltiazem HCl ER (DILT-XR) 180 mg PO BID 90 days dulaglutide (Trulicity) 0.75 mg subcut QWEEK famotidine 40 mg PO DAILY glipizide 10 mg PO BID 90 days insulin glargine U-300 conc (Toujeo SoloStar U-300 Insulin) 32 units subcut levothyroxine 112 mcg PO DAILY losartan 100 mg PO DAILY ondansetron HCl 4 mg PO Q8H PRN 1 month [Rollator with seat As directed] simethicone (Gas Relief (simethicone)) 125 mg PO BID PRN Tobacco use date assessed: 05/16/24 Fall risk assessment: 1 Fall in past year Last assessed Fall Risk: 05/16/24 Dental Screening Dental Screen Date: 05/16/24 Did you have a dental visit in the last 12 months?: Yes Did you have a dental problem in the last 6 months where you did not have access to dental care?: No Was dental information given to patient?: Patient has dentist HPI 3 month follow up HPI Details 87-year-old lady with diabetes mellitus, currently followed by Dr. Otero history of atrial fibrillation currently on apixaban 5 mg twice a day and atenolol 50 mg daily as well as diltiazem ER 180 mg twice a day, and has moderate aortic stenosis followed by cardiology, here today for follow-up of her lipids and thyroid levels. Still has shortness of breath on exertion, and has persistent crackles on her right lung base. Currently being followed by Dr. Sewell at [facility] and currently being evaluated for interstitial lung disease. [facility] Medical History Shortness of breath on exertion New onset atrial fibrillation Elevated hemidiaphragm Cyst of pancreas Moderate aortic valve stenosis Mitral and aortic regurgitation Osteoarthritis of hip Dyspnea on exertion Systolic ejection murmur Fracture of left wrist Essential hypertension History of left breast cancer IBS (irritable bowel syndrome) Acquired hypothyroidism Dyslipidemia Diabetes mellitus, with long-term current use of insulin Surgical History History of bladder suspension procedure History of cholecystectomy History of lumpectomy of left breast Social History Housing: House Patient Tobacco Use Status: Former Tobacco user e-Cigarette/Vaping Use: Never Used service: No Current occupational status: retired Cognitive needs: No Hearing needs: Yes Vision needs: Yes Questionnaire Thrive Questionnaire Date Thrive assessed: 02/01/24 CHRISTI-7 AMB Questionnaire CHRISTI-7 Date CHRISTI - 7 assessed: 02/01/24 Source: Developed by Drs. Reece Medina, Brionna Sewell, Tarun Antony and colleagues, with an educational ree from [employer]. Review of Systems Const Denies weakness Eyes Denies change in vision ENT Denies dizziness, Denies nasal congestion and Denies disequilibrium Card Denies chest pain, Denies chest pain with activity, Denies syncope, Denies rapid heart rate, Denies leg edema, Denies lightheadedness, Denies palpitations and Reports dyspnea on exertion Resp Denies cough, Reports dyspnea on exertion and Denies wheezing GI Denies hematochezia and Denies change in stool character Musc Denies abnormal gait, Denies muscle cramps, Denies muscle weakness, Denies numbness, Denies radiating pain into limb and Denies tingling Neuro Denies abnormal gait, Denies dizziness, Denies syncope, Denies numbness, Denies Sensory deficit (Neuro), Denies tingling, Denies disequilibrium and Denies weakness Endo Denies palpitations Scott/Lymph Denies easy bleeding and Denies easy bruising Aller/Immun Denies wheezing Physical exam (Primary Care) Vital Signs: Last Vital Signs Pulse 68 05/16/24 11:10 BP 118/62 05/16/24 11:10 Pulse Ox 98 05/16/24 11:10 Oxygen Delivery Method Room Air 05/16/24 11:10 BMI result Body Mass Index 26.8 Tobacco/Smoking Status: Tobacco use Status Tobacco use date assessed 05/16/24 05/16/24 11:11 Patient Tobacco Use Status Former Tobacco user 05/16/24 11:11 e-Cigarette/Vaping Use Never Used 05/16/24 11:11 Thrive Assessment: Date of Thrive Assessment Date Thrive assessed 02/01/24 05/16/24 11:11 Const Other: Frail looking elderly female, accompanied by daughter and granddaughter General: no acute distress, awake and Physically active Nutritional Appearance: average body habitus Orientation/consciousness: patient oriented x3 HENMT Head: Yes normocephalic Face and sinus: Yes face symmetric Mouth: Normal oral and palatal mucosa present, oropharynx normal and moist mucous membranes Eyes General: appearance normal, both eyes and all related structures Neck Neck: Yes full ROM, Yes no lymphadenopathy and Yes supple Resp Auscultation: crackles on the right at the base Cardio Rhythm: abnormal rhythm irregularly irregular GI Palpation (GI): Soft to palpation, nontender, no guarding and no masses Skin General skin exam: no rashes or lesions noted Neuro General: patient oriented x3, moves all extremities, no focal motor deficits and CN's II-XI intact bilaterally Gait exam (Neuro): Assistive device used (Walker) Sensory Exam: No Sensory deficit (Neuro) Extrem Other: . Pedal edema General: Yes full ROM, Yes no joint enlargement and Yes no calf tenderness Results AMB Hemoglobin A1c AMB Hemoglobin A1c 9.8 % Last Edit by Marcella Montaño CMA on 05/16/24 11:58 Results Reviewed Results Reviewed: Laboratory Last Values Hgb A1c (Clinic) 9.8 % (4.0-6.0) H 05/16/24 11:56 Assessment and Plan Assessment & Plan (1) Essential hypertension: Code(s): I10 - Essential (primary) hypertension Plan: Blood pressure at goal of less than 130/80. Continue with current medication. Reinforced importance of following a low sodium diet, getting regular exercise, and lowering stress levels. (2) Acquired hypothyroidism: Code(s): E03.9 - Hypothyroidism, unspecified Plan: Will check TSH and free T4 levels, continue on levothyroxine 112 mcg daily in a.m. (3) Dyslipidemia: Code(s): E78.5 - Hyperlipidemia, unspecified Plan: Fasting lipid panel ordered, currently on atorvastatin 40 mg daily . Continue with adherence to low-cholesterol diet and regular exercise, at least 30 minutes 3 to 4 times a week. Advised patient to make healthy food choices, eat more fruits, vegetables, whole grains, wild caught fish and low-fat dairy. Limit amount of meat and fried or fatty food products, as well as processed foods and fast foods. 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 insulin Plan: Poorly-controlled diabetes mellitus noted with hemoglobin A1c today at 9.8%, recently seen by her admissions clerk a month ago, advised to call and make an appointment with him for adjustment of her medications Orders: Orders Alanine Aminotransferase Today E03.9 - Hypothyroidism, unspecified, E78.5 - Hyperlipidemia, unspecified Thyroid Stimulating Hormone Today E03.9 - Hypothyroidism, unspecified, E78.5 - Hyperlipidemia, unspecified AMB Hemoglobin A1c 05/16/24 E11.9 - Type 2 diabetes mellitus without complications, 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
== END 2024-05-16 13:25 | disposition home or self-care (01) ==
PROVIDERS: PCP Internal Medicine; Visit Provider Internal Medicine
DX: E11.9 Type 2 diabetes mellitus without complications (principal); Z79.4 Long term (current) use of insulin
CPT/HCPCS: 83036; 99214; G2211

== ENCOUNTER → 2024-05-29 10:53 | Outpatient (REF) | payer MEDICARE, SELFPAY ==
--- NOTE | 2024-05-29 10:56 | HM_ITS ---
Conclusion: 1. Patient was monitored for total period of 3 days 2. Baseline was atrial fibrillation with average heart of 74 beats per minute with good rate control 3. No significant pauses noted 4. No patient reported events MTDD
== END ==
LOC: HO.CARD 10:53
PROVIDERS: PCP Internal Medicine; Visit Provider Internal Medicine
DX: R00.2 Palpitations (principal); I48.91 Unspecified atrial fibrillation
CPT/HCPCS: 93242

== ENCOUNTER → 2024-05-29 10:56 | Outpatient (BNV) | payer MEDICARE, SELFPAY | PROVIDERS: PCP Internal Medicine; Visit Provider Internal Medicine Cardiovascular Disease | DX: I48.91 Unspecified atrial fibrillation (principal) | CPT/HCPCS: 93244 ==

== ENCOUNTER 2024-05-31 12:34 | Outpatient (AMB) | payer MEDICARE, SELFPAY ==
--- NOTE | 2024-05-31 12:36 | A.OFFVIS_ITS ---
Vital Signs 05/31/24 12:39 Height 5 ft 1 in Weight 143 lb 4.807 oz BMI 27.1 BP 140/58 H Blood Pressure Location Rt brachial Position Sitting Pulse 49 L Pulse Source Pulse Oximeter Intake Visit Reasons: T2DM/CONFIRMED Intake Note: NEW Patient presents today to established treatment for Diabetes Type 2: Most recent Diabetic Eye Exam: Had an appt 2 months ago, next appt Jun Most recent Podiatry Exam: Does not see a Boot Lace Cutter Machine Most recent HbA1c: 9.8%, 05/16/2024 Random Glucose- 206 mg/dL, Today Promotions Director Required: No Accompanied by: Grand Child Allergies lisinopril Adverse Reaction (Verified 05/31/24 12:37) unknown avandia Allergy (Severe, Uncoded 05/31/24 12:37) swelling of tongue HPI Comments Details: [89] YO [M/F] who is seen in consultation for T2DM at the request of PCP. Initially diagnosed with T2DM in [2002]. Was initially started on treatment with [glipizide]. Had allergic reaction to avandia Current regimen [Trulicity 0.75mg weekly (prescribed not taking, did not fish bait picker prescription) Glipizide 10mg bid Toujeo U300 40 units in the am, titrated up from 30 units. Checks sugars [1] times per day. Average sugar: [130-190 in the am, high 200's later in the day, at times was 300] Reports low sugars [nothing below 70]. doesn't carry sugar source Most recent A1C [9.8%], [up] from prior [7.7%] in [2022]. She was admitted to the hospital earlier this year for pneumonia and is being worked up for in terstitial lung disease. Her energy level is down and she is much less active. Family history of T2DM in [mother]. Has eyes checked yearly, last eye exam [due 06/2024], [denies] retinopathy. 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 UAC [] as measured on []. [Has] HLD, on [statin]. Last LDL [81] as measured on [11/13]. [Denies] CAD. H/o Afib followed by cardiology Diet: [Breakfast consists of a fixed egg in [place] muffin or a waffle, lunches is her biggest meal of the day where she has some sort of chicken,fish, occasional red meat with a starch and a vegetable, supper is leftovers] Weight: [Stable] She denies cramping the lower extremities PFSH Medical History Shortness of breath on exertion New onset atrial fibrillation Elevated hemidiaphragm Cyst of pancreas Moderate aortic valve stenosis Mitral and aortic regurgitation Osteoarthritis of hip Dyspnea on exertion Systolic ejection murmur Fracture of left wrist Essential hypertension History of left breast cancer IBS (irritable bowel syndrome) Acquired hypothyroidism Dyslipidemia Diabetes mellitus, with long-term current use of insulin Surgical History History of bladder suspension procedure History of cholecystectomy History of lumpectomy of left breast Social History Housing: House Patient Tobacco Use Status: Former Tobacco user e-Cigarette/Vaping Use: Never Used service: No Current occupational status: retired Cognitive needs: No Hearing needs: Yes Vision needs: Yes Physical Exam Vital Signs: Last Vital Signs Pulse 49 L 05/31/24 12:39 BP 140/58 H 05/31/24 12:39 BMI result Body Mass Index 27.1 Absence of Cushingoid features. Absence of acromegalic features. Neck exam reveals nl size thyroid about 15 gms. No thyroid nodules palpable. No carotid bruits present. Lungs CTA. Heart S1 S2, Reg R/R. No M/R/ G. Skin exam reveals absence of vitiligo or acanthosis nigricans. Abdominal exam reveals Soft NT/ND with NA BS. No organomegaly present. Const General: cooperative Nutritional Appearance: average body habitus Orientation/consciousness: oriented to person Neck Other: . Neck: Yes normal visual inspection Thyroid: Thyroid normal Lymphatic: no lymphadenopathy noted Chest Chest palpation & inspection: normal inspection of the chest Resp Effort & Inspection: normal respiratory effort Auscultation: clear to auscultation bilaterally Cardio Jugular venous distension: no JVD Heart sounds: S1 normal heart sound present and S2 normal heart sound present Neuro General: oriented to person Extrem Other: Visual exam of foot performed. No ulcerations or open lesions. No onchomycosis, no callouses.Pulses 2 + distally Sensation intact to monofilament exam. Vibratory sensation sensed is diminished with 128 Hz tuning fork Results Reviewed Results Reviewed: Laboratory Last Values Glucose (Clinic) 206 mg/dL (60-115) H 05/31/24 12:47 Laboratory Tests 04/14/23 07/12/23 11/02/23 07:33 12:35 10:12 Potassium BUN 34 H Creatinine 1.30 Estimated GFR 39 Random Glucose Hgb A1c (Clinic) 7.7 H AST 19 ALT 20 Triglycerides 133 Cholesterol 152 LDL Cholesterol, Calc 81 HDL Cholesterol 45 25-OH Vitamin D Total 33.5 TSH 0.43 Free T4 1.13 02/22/24 05/16/24 08:37 11:56 Potassium 4.4 BUN 20 H Creatinine 1.15 Estimated GFR 45 Random Glucose 122 H Hgb A1c (Clinic) 9.8 H AST ALT Triglycerides Cholesterol LDL Cholesterol, Calc HDL Cholesterol 25-OH Vitamin D Total TSH Free T4 Assessment & Plan Assessment & Plan (1) Diabetes mellitus, with long-term current use of insulin: Code(s): E11.9 - Type 2 diabetes mellitus without complications; Z79.4 - parts counterman (current) use of insulin Category: Medical Plan: Continue Toujeo 40 units daily, continue glipizide 10 mg b.i.d. for now, add Ozempic 0.25 mg weekly when she starts freestyle 3 sensory using reader. She and her granddaughter will come in for training they had attempted to start the reader but were having difficulty with the alarms. They will bring in reader and sensor. For now most concerned about any low she might be having. Would ideally like to wean off glipizide as longer acting MEDEL's can trigger hypoglycemia in the elderly population and increase Ozempic if tolerating and effective. Side effects of GLP-1 agonist were reviewed: Nausea, vomiting, diarrhea, headache, dehydration or low blood sugar. Rare acute kidney injury which can result from dehydration. The patient was counseled to always carry a source of sugar and on the rule of 15's: Take 3 glucose tablets and repeat again in 15 minutes if blood sugar is not in normal range. Continue to repeat every 15 minutes until blood sugar is normal. Medications: New semaglutide (Ozempic) 0.25 mg (0.368 mL) subcut QWEEK 4 weeks 1.472 mL 0RF Coding Level of Care Code Tele New Pt Level 5 (94684) Complex EM visit Add On G2211 Diagnoses Diabetes mellitus, with long-term current use of insulin E11.9; Z79.4 Time Spent (min) 60 Comment Time spent reviewing labs/previous provider notes, face to face, chart documentation
[2024-05-31 12:39] VITALS: BP 140/58; PULSE 49; BMI 27.1
[2024-05-31 12:51] LABS: Glucose, Whole Blood 206 mg/dL (60-115)
== END 2024-05-31 13:24 | disposition home or self-care (01) ==
PROVIDERS: PCP Internal Medicine; Visit Provider Nurse Practitioner Adult Health
DX: E11.9 Type 2 diabetes mellitus without complications (principal); Z79.4 Long term (current) use of insulin
CPT/HCPCS: 99205; G2211

== ENCOUNTER → 2024-05-31 12:34 | Outpatient (BNVA) | payer MEDICARE, SELFPAY | PROVIDERS: PCP Internal Medicine; Visit Provider Nurse Practitioner Adult Health | DX: E11.9 Type 2 diabetes mellitus without complications (principal); Z79.4 Long term (current) use of insulin | CPT/HCPCS: 82947; 99202 ==

== ENCOUNTER 2024-06-02 08:16 | Outpatient (REF) | payer MEDICARE, SELFPAY ==
[2024-06-02 10:58] LABS: Alanine Aminotransferase 11 U/L (0-31); Anion Gap 12 (12-20); Aspartate Amino Transferase 14 U/L (5-31); Blood Urea Nitrogen 19 mg/dL (9-16); Calcium 9.5 mg/dL (8.4-10.2); Carbon Dioxide 28 mmol/L (22-29); Chloride 105 mmol/L (96-108); Cholesterol 108 mg/dL (<200); Estimated Glomerular Filt Rate 34; Glucose Random 82 mg/dL (60-115); HDL Cholesterol 29 mg/dL (>40); LDL Cholesterol Calculated 58 mg/dL (<100); Potassium 3.6 mmol/L (3.3-5.1); Sodium 141 mmol/L (135-145); Triglycerides 105 mg/dL (<150)
[2024-06-02 11:05] LABS: Free T4 (Free Thyroxine) 0.94 ng/dL (0.71-1.85); Thyroid Stimulating Hormone 5.82 uIU/mL (0.32-4.0)
== END 2024-06-02 08:17 | disposition home or self-care (01) ==
LOC: HO.HMGCLDS 08:16
PROVIDERS: PCP Internal Medicine; Visit Provider Internal Medicine
DX: E03.9 Hypothyroidism, unspecified (principal); E78.5 Hyperlipidemia, unspecified; I08.0 Rheumatic disorders of both mitral and aortic valves; I10 Essential (primary) hypertension
CPT/HCPCS: 36415; 80048; 80061; 84439; 84443; 84450; 84460

== ENCOUNTER 2024-06-05 15:29 | Outpatient (AMB) | payer MEDICARE, SELFPAY ==
--- NOTE | 2024-06-05 16:10 | A.OFFVIS_ITS ---
Intake Intake Visit Reasons: T2DM/LVM Blood Bank Specialist Required: No Accompanied by: Daughter Allergies lisinopril Adverse Reaction (Verified 05/31/24 12:37) unknown avandia Allergy (Severe, Uncoded 05/31/24 12:37) swelling of tongue HPI Comprehensive Diabetes Asmnt Most Recent Diabetes Results: Cholesterol 108 mg/dL (<200) 06/02/24 HDL Cholesterol 29 mg/dL (>40) L 06/02/24 Triglycerides 105 mg/dL (<150) 06/02/24 Creatinine 1.44 mg/dL (0.5-1.4) H 06/02/24 Blood Urea Nitrogen 19 mg/dL (9-16) H 06/02/24 Sodium 141 mmol/L (135-145) 06/02/24 Potassium 3.6 mmol/L (3.3-5.1) 06/02/24 Chloride 105 mmol/L (96-108) 06/02/24 Carbon Dioxide 28 mmol/L (22-29) 06/02/24 Calcium 9.5 mg/dL (8.4-10.2) 06/02/24 AST 14 U/L (5-31) 06/02/24 ALT 11 U/L (0-31) 06/02/24 COUNT INCLUDES THE [facility] Medical History Shortness of breath on exertion New onset atrial fibrillation Elevated hemidiaphragm Cyst of pancreas Moderate aortic valve stenosis Mitral and aortic regurgitation Osteoarthritis of hip Dyspnea on exertion Systolic ejection murmur Fracture of left wrist Essential hypertension History of left breast cancer IBS (irritable bowel syndrome) Acquired hypothyroidism Dyslipidemia Diabetes mellitus, with long-term current use of insulin Surgical History History of bladder suspension procedure History of cholecystectomy History of lumpectomy of left breast Social History Housing: House Patient Tobacco Use Status: Former Tobacco user e-Cigarette/Vaping Use: Never Used service: No Current occupational status: retired Cognitive needs: No Hearing needs: Yes Vision needs: Yes Assessment & Plan Assessment & Plan (1) Diabetes mellitus, with long-term current use of insulin: Code(s): E11.9 - Type 2 diabetes mellitus without complications; Z79.4 - longterm (current) use of insulin Plan: Patient at visit to set up an insert Perla 2 sensor Patient at visit with daughter and her granddaughter Patient given sample of Perla 3 sensor, patient did not have prescription for Perla 3 sensors message sent to [facility]INICAL LABORATORY TECHNOLOGIST to send prescription. Instructed patient sensors water proof you can shower, or swim do not submerge sensor in water for over 30 minutes Is sensor falls off cannot put back in you need to replace sensor, customer service number given to patient for sensor replacement Sensor placed on the Back of R arm Patient left visit with sensor in warmup Reviewed how to interpret trend arrows Reminded patient that to check finger sticks if symptoms do not match sensor reading. Discussed lag time between finger stick and sensor data.? Instructed patient she should always keep blood glucometer for backup testing if needed Reviewed delay of CGM from fingersticks Reminded pt that if symptoms do not match sensor still needs to check fingersticks. Insulin/Incretin?Mimetic Education visit patient will be starting Ozempic 0.25 mg, instruction given to patient, daughter and granddaughter Patient Education: Patient was instructed and provided with demonstration of the following: Insulin action and Incretin Mimetics medication storage how to set up medication pen/or syringe and vial Handwashing insulin injection site rotation Site rotation recognizing hypertrophy Testing blood glucose Removing and disposing needle from insulin pen Safe disposal of sharps Target blood sugar Signs/ symptoms/treatment of hypoglycemia/hyperglycemia expiration of open pen Patient verbalized understanding of education provided and was able to demonstrate proper use of inject into injection pillow Reviewed rule of 15s to treat glucose under 70 mg/dL All questions were answered and patient was advised to contact the office with any questions or concerns. Portions of this note were created using voice recognition software, please excuse any words or phrases that may have been misinterpreted. Patient Instructions: Patient instruction: CGM provides information on blood glucose control throughout the day, including hyperglycemia and hypoglycemia. ? Continue to monitor blood glucose as instructed. Follow nutrition guidelines provided. Report any discomfort promptly to health care provider. ?Stay well-hydrated. You can bathe ,shower, swim and exercise while wearing the glucose sensor. Do not submerge glucose sensor in water for more than 30 minutes. Coding Level of Care Code Est Pt Level 1 (68543) Diagnoses Diabetes mellitus, with long-term current use of insulin E11.9; Z79.4
== END 2024-06-05 16:12 | disposition home or self-care (01) ==
PROVIDERS: PCP Internal Medicine; Visit Provider Registered Nurse Diabetes Educator
DX: E11.9 Type 2 diabetes mellitus without complications (principal); Z79.4 Long term (current) use of insulin

== ENCOUNTER → 2024-06-05 15:29 | Outpatient (BNVA) | payer MEDICARE, SELFPAY | PROVIDERS: PCP Internal Medicine; Visit Provider Registered Nurse Diabetes Educator | DX: E11.9 Type 2 diabetes mellitus without complications (principal); Z79.4 Long term (current) use of insulin | CPT/HCPCS: 99211 ==

== ENCOUNTER 2024-06-13 13:00 | Outpatient (AMB) | payer MEDICARE, SELFPAY ==
[2024-06-13 13:16] VITALS: BP 120/62; PULSE 56; BMI 26.7
--- NOTE | 2024-06-13 13:16 | MHC.OFFVIS ---
Vital Signs 06/13/24 13:16 Height 5 ft 1 in Weight 141 lb 8.588 oz BMI 26.7 BP 120/62 Blood Pressure Location Lt brachial Position Sitting Pulse 56 Pulse Source Pulse Oximeter Intake Visit Reasons: 2m follow up Logger All Round Required: No Accompanied by: Self / Same As Patient Allergies lisinopril Adverse Reaction (Verified 05/31/24 12:37) unknown avandia Allergy (Severe, Uncoded 05/31/24 12:37) swelling of tongue Medication List - Last Reconciled 06/13/24 by Efra Solo MD apixaban 5 mg PO BID 90 days atenolol 50 mg PO DAILY atorvastatin 40 mg PO DAILY blood-glucose meter,continuous (FreeStyle Perla 3 [place]) As directed blood-glucose meter,continuous (FreeStyle Perla 3 [place]) As directed blood-glucose sensor (FreeStyle Perla 3 Sensor device) As directed diltiazem HCl ER (DILT-XR) 180 mg PO BID 90 days famotidine 40 mg PO DAILY furosemide (Lasix) 20 mg PO DAILY PRN glipizide 10 mg PO BID 90 days insulin glargine U-300 conc (Toujeo SoloStar U-300 Insulin) 32 units subcut levothyroxine 112 mcg PO DAILY losartan 50 mg PO DAILY [Rollator with seat As directed] semaglutide (Ozempic) 0.25 mg (0.368 mL) subcut QWEEK 30 days simethicone (Gas Relief (simethicone)) 125 mg PO BID PRN HPI Comments Details: Lachelle returns for follow-up. Recently seen in consultation regarding shortness of breath. At that time, thought to have moderate aortic stenosis but not entirely adequate to explain her symptoms. Subsequently, she was admitted to [facility] with pneumonia and then had atrial fibrillation rapid rate. She is on rate control medications. She was complaining of lower shortness of breath but today she states that she is actually so much better. Breathing is significantly improved. She did not like side effects from digoxin and that has been stopped now. From the pulmonary standpoint, she also has a diagnosis of interstitial lung disease. [facility] Medical History Shortness of breath on exertion New onset atrial fibrillation Elevated hemidiaphragm Cyst of pancreas Moderate aortic valve stenosis Mitral and aortic regurgitation Osteoarthritis of hip Dyspnea on exertion Systolic ejection murmur Fracture of left wrist Essential hypertension History of left breast cancer IBS (irritable bowel syndrome) Acquired hypothyroidism Dyslipidemia Diabetes mellitus, with long-term current use of insulin Surgical History History of bladder suspension procedure History of cholecystectomy History of lumpectomy of left breast Family History Unknown No problems noted. Social History Housing: House Patient Tobacco Use Status: Former Tobacco user e-Cigarette/Vaping Use: Never Used service: No Current occupational status: retired Cognitive needs: No Hearing needs: Yes Vision needs: Yes Review of Systems Const Denies chills, Denies fatigue, Denies fever(s), Denies frequent falls, Denies weakness, Denies weight gain and Denies weight loss ENT Denies dizziness Card Denies chest pain, Denies leg edema, Denies lightheadedness, Denies palpitations, Denies dyspnea and Denies dyspnea on exertion Resp Denies cough, Denies dyspnea and Denies dyspnea on exertion GI Denies hematochezia Musc Denies abnormal gait, Denies muscle weakness, Denies numbness, Denies radiating pain into limb and Denies tingling Neuro Denies abnormal gait, Denies dizziness, Denies frequent falls, Denies numbness, Denies tingling and Denies weakness Endo Denies fatigue and Denies palpitations Physical Exam Vital Signs: Last Vital Signs Pulse 56 06/13/24 13:16 BP 120/62 06/13/24 13:16 BMI result Body Mass Index 26.7 Const General: comfortable and no acute distress Orientation/consciousness: patient oriented x3 HEENT Other: Unremarkable Head: Yes normal to inspection Neck Neck: Yes normal visual inspection Chest Chest palpation & inspection: normal inspection of the chest Resp Auscultation: crackles and diminished lung sounds Cardio Palpation: normal PMI Heart sounds: S1 normal heart sound present, S2 normal heart sound present, no gallops, no murmurs and no rubs GI Palpation (GI): Soft to palpation Back/Spine/Pelvis Other: unremarkable Skin General skin exam: no rashes or lesions noted Neuro General: patient oriented x3 Extrem General: Yes normal to inspection Psych Mental Status: mental status grossly normal Assessment & Plan Assessment & Plan (1) Persistent atrial fibrillation: Code(s): I48.19 - Other persistent atrial fibrillation Category: Medical Plan: Currently on a combination of atenolol and diltiazem. In the recent Holter, underlying rhythm is atrial fibrillation with an average rate of 74/Min. Seems well controlled. Today, by auscultation again well controlled. She is not doing well with digoxin and that has been stopped. Otherwise, continue anticoagulation. If the creatinine does go up in the future, may have to decrease Eliquis dosing. (2) Moderate aortic valve stenosis: Code(s): I35.0 - Nonrheumatic aortic (valve) stenosis Category: Medical Plan: In the most recent echocardiogram from [facility], moderately calcified aortic valve with [id number] stenosis and mild regurgitation. No specific significant. We can follow on echocardiogram. (3) Essential hypertension: Code(s): I10 - Essential (primary) hypertension Category: Medical Plan: Stable. (4) Leg swelling: Code(s): M79.89 - Other specified soft tissue disorders Category: Medical Plan: Possible diastolic heart failure related to atrial fibrillation versus dependent edema or some combination of both. Today, no significant swelling. May use diuretics as needed. Follow-up BMP in due course. Plan Discussed with family at bedside. Orders: Orders Basic Metabolic Panel Today I48.91 - Unspecified atrial fibrillation Medications: Refilled furosemide (Lasix) 20 mg PO DAILY PRN 90 tabs 3RF leg swelling Coding Level of Care Code Est Pt Level 4 (70396) Diagnoses Persistent atrial fibrillation I48.19 Moderate aortic valve stenosis I35.0 Essential hypertension I10 Leg swelling M79.89
== END 2024-06-13 13:46 | disposition home or self-care (01) ==
PROVIDERS: PCP Internal Medicine; Visit Provider Internal Medicine
DX: I48.19 Other persistent atrial fibrillation (principal); I35.0 Nonrheumatic aortic (valve) stenosis; I10 Essential (primary) hypertension; M79.89 Other specified soft tissue disorders
CPT/HCPCS: 99214

== ENCOUNTER → 2024-06-13 13:00 | Outpatient (BNVA) | payer MEDICARE, SELFPAY | PROVIDERS: PCP Internal Medicine; Visit Provider Internal Medicine | DX: I48.19 Other persistent atrial fibrillation (principal); I35.0 Nonrheumatic aortic (valve) stenosis; I10 Essential (primary) hypertension; M79.89 Other specified soft tissue disorders; Z79.899 Other long term (current) drug therapy | CPT/HCPCS: 99212 ==

== ENCOUNTER 2024-06-21 10:03 | Outpatient (AMB) | payer MEDICARE, SELFPAY ==
--- NOTE | 2024-06-21 10:07 | A.OFFVIS_ITS ---
Vital Signs 06/21/24 10:11 Height 5 ft 1 in Weight 143 lb 4.807 oz BMI 27.1 BP 120/64 Blood Pressure Location Rt brachial Position Sitting Pulse 63 Pulse Source Pulse Oximeter Intake Visit Reasons: T2DM/CONFIRMED Intake Note: Patient presents today to for a follow-up on Type 2 Diabetes Mellitus: Most recent Diabetic Eye Exam: Had an appt 2 months ago, next appt Jun Last Podiatry Exam: Does not see a Contracts Attorney Most recent HbA1c: 9.8%, 05/16/2024. Random Glucose- 240 mg/dL, Today Plastic Surgeon Required: No Accompanied by: Grand Child Allergies lisinopril Adverse Reaction (Verified 06/21/24 10:08) unknown avandia Allergy (Severe, Uncoded 06/21/24 10:08) swelling of tongue HPI Comments Details: 89] YO [M/F] who is seen in f/u for T2DM. She was initially seen several weeks ago and started on a freestyle Perla 3. Initially diagnosed with T2DM in [2002]. Was initially started on treatment with [glipizide]. Had allergic reaction to avandia Current regimen Ozempic 0.25 mg weekly Glipizide 10mg bid Toujeo U300 40 units in the am Freestyle perla sensor [ 3] average glucose: [ 195] Glucose Management indicator 8 TIme in range: 17 % very high (above 250) 44 % high (181-250) 38 % in range (70-180] 1 % low (69-55) 0 % very low (below 54) Trend show a rise in sugars after lunch and dinner Most recent A1C [9.8%], [up] from prior [7.7%] in [2022]. She was admitted to the hospital earlier this year for pneumonia and is being worked up for interstitial lung disease. Her energy level is down and she is much less active. Family history of T2DM in [mother]. Has eyes checked yearly, last eye exam [due 06/2024], [denies] retinopathy. 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 UAC [] as measured on []. [Has] HLD, on [statin]. Last LDL [81] as measured on [11/13]. [Denies] CAD. H/o Afib followed by cardiology Diet: [Breakfast consists of a fixed egg in [place] muffin or a waffle, lunches is her biggest meal of the day where she has some sort of chicken,fish, occasional red meat with a starch and a vegetable, supper is leftovers] Weight: [Stable] She denies cramping the lower extremities PFSH Medical History Shortness of breath on exertion New onset atrial fibrillation Elevated hemidiaphragm Cyst of pancreas Moderate aortic valve stenosis Mitral and aortic regurgitation Osteoarthritis of hip Dyspnea on exertion Systolic ejection murmur Fracture of left wrist Essential hypertension History of left breast cancer IBS (irritable bowel syndrome) Acquired hypothyroidism Dyslipidemia Diabetes mellitus, with long-term current use of insulin Surgical History History of bladder suspension procedure History of cholecystectomy History of lumpectomy of left breast Family History (Updated 06/13/24 @ 14:20 by Efra Solo MD) Unknown No problems noted. Social History Housing: House Patient Tobacco Use Status: Former Tobacco user e-Cigarette/Vaping Use: Never Used service: No Current occupational status: retired Cognitive needs: No Hearing needs: Yes Vision needs: Yes Physical Exam Vital Signs: Last Vital Signs Pulse 63 06/21/24 10:11 BP 120/64 06/21/24 10:11 BMI result Body Mass Index 27.1 Const General: cooperative and healthy appearing Nutritional Appearance: average body habitus Orientation/consciousness: patient oriented x3 Limitations: no limitations Neck Neck: Yes normal visual inspection Thyroid: Thyroid normal Resp Effort & Inspection: normal respiratory effort Neuro General: patient oriented x3 Results Reviewed Results Reviewed: Laboratory Last Values Glucose (Clinic) 240 mg/dL (60-115) H 06/21/24 10:15 04/14/23 07/12/23 11/02/23 07:33 12:35 10:12 Potassium BUN 34 H Creatinine 1.30 Estimated GFR 39 Random Glucose Hgb A1c (Clinic) 7.7 H AST 19 ALT 20 Triglycerides 133 Cholesterol 152 LDL Cholesterol, Calc 81 HDL Cholesterol 45 25-OH Vitamin D Total 33.5 TSH 0.43 Free T4 1.13 02/22/24 05/16/24 08:37 11:56 Potassium 4.4 BUN 20 H Creatinine 1.15 Estimated GFR 45 Random Glucose 122 H Hgb A1c (Clinic) 9.8 H AST ALT Triglycerides Cholesterol LDL Cholesterol, Calc HDL Cholesterol 25-OH Vitamin D Total TSH Free T4 Assessment & Plan Assessment & Plan (1) Diabetes mellitus, with long-term current use of insulin: Code(s): E11.9 - Type 2 diabetes mellitus without complications; Z79.4 - lobsterman (current) use of insulin Category: Medical Plan: Improving glucose numbers in a type 2 diabetic. Will reduce glipizide to 10 mg with a goal of trying to eliminate this all together well maintaining glycemic control. Given her age the target A1c of 8% is reasonable. We will the dosing of the glipizide to lunch continue current dose of Toujeo and increase Ozempic to 0.5 mg Coding Level of Care Code Est Pt Level 4 (36244) Complex EM visit Add On G2211 Diagnoses Diabetes mellitus, with long-term current use of insulin E11.9; Z79.4 Time Spent (min) 30 Comment Time spent reviewing labs/previous provider notes, face to face, chart documentation
[2024-06-21 10:11] VITALS: BP 120/64; PULSE 63; BMI 27.1
[2024-06-21 10:19] LABS: Glucose, Whole Blood 240 mg/dL (60-115)
== END 2024-06-21 10:43 | disposition home or self-care (01) ==
PROVIDERS: PCP Internal Medicine; Visit Provider Nurse Practitioner Adult Health
DX: E11.9 Type 2 diabetes mellitus without complications (principal); Z79.4 Long term (current) use of insulin
CPT/HCPCS: 99214; G2211

== ENCOUNTER → 2024-06-21 10:03 | Outpatient (BNVA) | payer MEDICARE, SELFPAY | PROVIDERS: PCP Internal Medicine; Visit Provider Nurse Practitioner Adult Health | DX: E11.9 Type 2 diabetes mellitus without complications (principal); Z79.4 Long term (current) use of insulin | CPT/HCPCS: 82947; 99212 ==

== ENCOUNTER 2024-08-17 13:28 | Outpatient (AMB) | payer MEDICARE, SELFPAY ==
--- NOTE | 2024-08-17 12:59 | A.OFFVIS_ITS ---
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 She was last seen two months ago and was started on a freestyle Perla 3 and ozempic. Her most recent A1C % non 08/17/24 and 9.5% 05/16/24. Initially diagnosed with T2DM in 2002. Was initially started on treatment with glipizide. Had allergic reaction to avandia Current regimen Ozempic 0.50 mg weekly Glipizide 10mg daily Arjun U300 34 units in the am (reduced by family due to lows) FS3 veiwed from meter: avg 144, frequent lows in the middle of the night, less since reduction in insulin She was admitted to the hospital earlier this year for pneumonia and is being worked up for interstitial lung disease. Her energy level is down and she is much less active which affected her glucose readings. She was previously well controlled with an A1C of 7.7% in 2022. Family history of T2DM in mother. Has eyes checked yearly, last eye exam [due 06/2024], [denies] retinopathy. [+] neuropathy, last foot exam [today], sees podiatry on occasion wears shoes or slippers + Nephropathy: on 06/02/24:eGFR 45 [Has] HLD, on [statin]. Last LDL [81] as measured on [11/13]. [Denies] CAD. H/o Afib followed by cardiology Diet: [Breakfast consists of a fixed egg in [place] muffin or a waffle, lunches is her biggest meal of the day where she has some sort of chicken,fish, occasional red meat with a starch and a vegetable, supper is leftovers] Weight: [Stable] She denies cramping the lower extremities PFS Medical History Shortness of breath on exertion New onset atrial fibrillation Elevated hemidiaphragm Cyst of pancreas Moderate aortic valve stenosis Mitral and aortic regurgitation Osteoarthritis of hip Dyspnea on exertion Systolic ejection murmur Fracture of left wrist Essential hypertension History of left breast cancer IBS (irritable bowel syndrome) Acquired hypothyroidism Dyslipidemia Diabetes mellitus, with long-term current use of insulin Surgical History History of bladder suspension procedure History of cholecystectomy History of lumpectomy of left breast Family History (Updated 06/13/24 @ 14:20 by Efra Solo MD) Unknown No problems noted. Social History Housing: House Patient Tobacco Use Status: Former Tobacco user e-Cigarette/Vaping Use: Never Used service: No Current occupational status: retired Cognitive needs: No Hearing needs: Yes Vision needs: Yes Physical Exam Vital Signs: Last Vital Signs Pulse 82 08/17/24 13:34 BP 118/62 08/17/24 13:34 BMI result Body Mass Index 26.2 Const Other: Absence of Cushingoid features. Absence of acromegalic features. Neck exam reveals nl size thyroid about 15 gms. No thyroid nodules palpable. No carotid bruits present. Lungs CTA. Heart S1 S2, Reg R/R. No M/R G. Skin exam reveals absence of vitiligo or acanthosis nigricans. No edema Visual exam of foot performed. No ulcerations or open lesions. No inter digit maceration or fissuring. No onychomycosis, no callouses. Sensation intact to monofilament exam. Results AMB Hemoglobin A1c AMB Hemoglobin A1c 7.9 % Last Edit by LUI Huggins on 08/17/24 13:51 Results Reviewed Results Reviewed: Laboratory Tests 07/12/23 11/02/23 05/16/24 12:35 09:00 11:56 Creatinine Hgb A1c (Clinic) 7.7 H 9.8 H TSH Urine Creatinine 55.68 Urine Microalbumin 10.0 06/02/24 08:48 Creatinine 1.44 H Hgb A1c (Clinic) TSH 5.82 H Urine Creatinine Urine Microalbumin Assessment & Plan Assessment & Plan (1) Diabetes mellitus, with long-term current use of insulin: Code(s): E11.9 - Type 2 diabetes mellitus without complications; Z79.4 - assisted (current) use of insulin Category: Medical Qualifiers: Diabetes mellitus type: type 2 Diabetes mellitus complication status: with hypoglycemia Plan: 81-year-old with type 2 diabetes with improved A1c to 7% but with some nocturnal hypoglycemia. Both she and her granddaughter were instructed to stop glipizide and to reduce Toujeo to 32 units and continue Ozempic 0.5 mg. If any addition al hypoglycemia, insulin can be reduced by 4 units at at time every few days. She will be getting Ozempic through [email or web address] patient assistance program and form is due to be redone the end of September which they will bring in to me. At the time can consider increasing Ozempic to 1.0 mg provided that she is able to maintain her weight and then Toujeo can be reduced further or discontinued. I reviewed her targets giving her advanced age that she should not run less than 90 on her glucose in the morning. Later in the day okay to run 180-200 postprandial. She will repeat free T4/TSH as her TSH was slightly high several months ago but has been on a stable dose of levothyroxine taking regularly. Recommended flu, covid and rsv if she has not had these. 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
[2024-08-17 13:34] VITALS: BP 118/62; PULSE 82; BMI 26.2
[2024-08-17 13:44] LABS: Glucose, Whole Blood 162 mg/dL (60-115)
== END 2024-08-17 14:05 | disposition home or self-care (01) ==
PROVIDERS: PCP Internal Medicine; Visit Provider Nurse Practitioner Adult Health
DX: E11.9 Type 2 diabetes mellitus without complications (principal); Z79.4 Long term (current) use of insulin
CPT/HCPCS: 99214; G2211

== ENCOUNTER → 2024-08-17 13:28 | Outpatient (BNVA) | payer MEDICARE, SELFPAY | PROVIDERS: PCP Internal Medicine; Visit Provider Nurse Practitioner Adult Health | DX: E11.649 Type 2 diabetes mellitus with hypoglycemia without coma (principal); E03.9 Hypothyroidism, unspecified; Z79.4 Long term (current) use of insulin | CPT/HCPCS: 82947; 83036; 99212 ==

== ENCOUNTER 2024-11-27 10:46 | Outpatient (REF) | payer MEDICARE, SELFPAY ==
[2024-11-27 13:40] LABS: Estimated Average Glucose 180 mg/dL; Hemoglobin A1C 222.3123 umol/L; Hemoglobin A1c % 7.9 % (<6.0); Total Hemoglobin (HGBA1C) 3547.1113 umol/L
[2024-11-27 14:20] LABS: Alanine Aminotransferase 30 U/L (0-31); Albumin Level 3.9 g/dL (3.5-5.0); Alkaline Phosphatase 64 U/L (39-117); Anion Gap 9 (12-20); Aspartate Amino Transferase 28 U/L (5-31); Bilirubin Total 0.9 mg/dL (0.0-1.0); Blood Urea Nitrogen 31 mg/dL (9-16); Calcium 9.4 mg/dL (8.4-10.2); Carbon Dioxide 28 mmol/L (22-29); Chloride 107 mmol/L (96-108); Cholesterol 122 mg/dL (<200); Estimated Glomerular Filt Rate 37; Glucose Fasting 114 mg/dL (60-99); HDL Cholesterol 38 mg/dL (>40); LDL Cholesterol Calculated 65 mg/dL (<100); Potassium 4.1 mmol/L (3.3-5.1); Sodium 140 mmol/L (135-145); Total Protein 7.5 g/dL (6.5-8.0); Triglycerides 98 mg/dL (<150)
[2024-11-27 14:41] LABS: Free T4 (Free Thyroxine) 1.49 ng/dL (0.71-1.85); Thyroid Stimulating Hormone 0.55 uIU/mL (0.32-4.0); Vitamin D 25-OH Total 21.3 ng/mL (>30)
[2024-11-27 17:52] LABS: Creatinine Urine 103.09 mg/dL; Microalbum/Creatinine Ratio Ur 114.4 ug/mg cr (<30)
== END 2024-11-27 10:47 | disposition home or self-care (01) ==
LOC: HO.HMGCLDS 10:46
PROVIDERS: PCP Internal Medicine; Visit Provider Internal Medicine
DX: E03.9 Hypothyroidism, unspecified (principal); I48.19 Other persistent atrial fibrillation; E11.22 Type 2 diabetes mellitus with diabetic chronic kidney disease; I12.9 Hypertensive chronic kidney disease with stage 1 through stage 4 chronic kidney disease, or unspecified chronic kidney disease; N18.31 Chronic kidney disease, stage 3a; E78.5 Hyperlipidemia, unspecified; Z79.4 Long term (current) use of insulin
CPT/HCPCS: 36415; 80053; 80061; 82043; 82306; 82570; 83036; 84439; 84443; 96127; 99212

== ENCOUNTER 2024-11-27 10:46 | Outpatient (AMB) | payer MEDICARE, SELFPAY ==
[2024-11-27 11:31] VITALS: BP 146/70; PULSE 68; O2SAT 94; BMI 26.4
--- NOTE | 2024-11-27 11:31 | MHC.PC.OV ---
Vital Signs 11/27/24 11:31 Height 5 ft 1 in Weight 140 lb BMI 26.4 BP 146/70 H Blood Pressure Location Lt brachial Position Sitting Pulse 68 Pulse Source Pulse Oximeter Pulse Oximetry (%) 94 Oxygen Delivery Method Room Air Intake Visit Reasons: Follow up Intake Note: Pt is here today for her f/u Allergies lisinopril Adverse Reaction (Verified 11/27/24 11:58) unknown avandia Allergy (Severe, Uncoded 11/27/24 11:58) swelling of tongue Medication List - Last Reconciled 11/27/24 by Savana Cordoba MD apixaban 5 mg PO BID 90 days atenolol 50 mg PO DAILY atorvastatin 40 mg PO DAILY blood-glucose meter,continuous (FreeStyle Perla 3 [place]) As directed blood-glucose meter,continuous (FreeStyle Perla 3 [place]) As directed blood-glucose sensor (FreeStyle Perla 3 Sensor device) As directed diltiazem HCl ER (DILT-XR) 180 mg PO BID 90 days famotidine 40 mg PO DAILY furosemide 20 mg PO DAILY insulin glargine U-300 conc (Toujeo SoloStar U-300 Insulin) 32 units subcut DAILY levothyroxine 112 mcg PO DAILY losartan 100 mg PO DAILY pen needle, diabetic (BD Kimi 2nd Gen Pen Needle) As directed daily [Rollator with seat As directed] semaglutide 0.5 mg (0.736 mL) subcut QWEEK 30 days Tobacco use date assessed: 11/27/24 Fall risk assessment: No Falls in past year Last assessed Fall Risk: 11/27/24 Dental Screening Dental Screen Date: 11/27/24 Did you have a dental visit in the last 12 months?: Yes Did you have a dental problem in the last 6 months where you did not have access to dental care?: No Was dental information given to patient?: Patient has dentist HPI Follow up HPI Details 89- diseaseyear-old lady with type 2 diabetes mellitus now currently [place] [facility] [place], currently on Toujeo 38 units at night and is on Ozempic 0.5 mg once a week. She is using freestyle Perla to check her sugars, and it has been averaging in the 180s over the last several weeks now. Usually runs low in the morning when she wakes up, and then starts going up as the day progresses. She has hypothyroidism currently stable and controlled on levothyroxine . She sees Dr. Galeana for chronic kidney disease, currently on losartan 100 mg daily and atenolol 50 mg daily. Systolic Blood pressure slightly elevated on today's visit. Patient however does not complain of any headache, no chest pain or shortness of breath, no lightheadedness She has atrial fibrillation currently on apixaban 5 mg 1 tablet twice a day. Has an appointment scheduled already to see Cardiology later this month . Has moderate aortic stenosis and mild aortic regurgitation noted on last echocardiogram, currently asymptomatic, followed by by echocardiogram yearly [facility] Medical History Shortness of breath on exertion New onset atrial fibrillation Elevated hemidiaphragm Cyst of pancreas Moderate aortic valve stenosis Mitral and aortic regurgitation Osteoarthritis of hip Dyspnea on exertion Systolic ejection murmur Fracture of left wrist Essential hypertension History of left breast cancer IBS (irritable bowel syndrome) Acquired hypothyroidism Dyslipidemia Diabetes mellitus, with long-term current use of insulin Surgical History History of bladder suspension procedure History of cholecystectomy History of lumpectomy of left breast Family History Unknown No problems noted. Social History Housing: House Patient Tobacco Use Status: Former Tobacco user e-Cigarette/Vaping Use: Never Used service: No Current occupational status: retired Cognitive needs: No Hearing needs: Yes Vision needs: Yes Questionnaire PHQ-9 Over the last 2 weeks, how often have you been bothered by any of the following problems? 1. Little interest or pleasure in doing things: more than half the days 2. Feeling down, depressed, or hopeless: not at all 3. Trouble falling or staying asleep, or sleeping too much: several days 4. Feeling tired or having little energy: several days 5. Poor appetite or overeating: more than half the days 6. Feeling bad about yourself - or that you are a failure or have let yourself or your family down: not at all 7. Trouble concentrating on things, such as reading the newspaper or watching television: not at all 8. Moving or speaking so slowly that other people could have noticed. Or the opposite - being so fidgety or restless that you have been moving around a lot more than usual: not at all 9. Thoughts that you would be better off or of hurting yourself in some way: not at all Total score: 6 Depression Screening Interpretation: Negative Depression Screening Done: Yes 61957 - PHQ-9 Billing: Yes Source: Developed by Drs. Reece Medina, Brionna Sewell, Tarun Antony and colleagues, with an educational ree from [employer]. Thrive Questionnaire Date Thrive assessed: 11/27/24 I am a: Patient What is your living situation today?: I have a steady place to live Within the past 12 months, did the food you bought not last and you didn't have the money to get more?: Never true Within the past 12 months, did you worry whether your food would run out before you got money to buy more?: Never true Do you have trouble paying for medicines?: No Do you have trouble getting transportation to medical appointments?: No Do you have trouble paying your heating and electricity bill?: No Do you have trouble taking care of your child, family member or friend?: No Do you have trouble with day-to-day activities such as bathing, preparing meals, shopping, managing finances, etc.?: No Are you currently unemployed and looking for a job?: No Are you interested in more education?: No Please select the resources that you would like help with: None Currently or been in a relationship where the following occur: No concerns reported THRIVE Score: 0 AUDIT C Alcohol Use Questionnaire (AUDIT-C) 1. How often do you have a drink containing alcohol?: Never Total Score: 0 CHRISTI-7 AMB Questionnaire CHRISTI-7 Date CHRISTI - 7 assessed: 11/27/24 Feeling nervous, anxious, or on edge: 0 = Not at all Not being able to stop or control worryin = Not at all Worrying too much about different things: 0 = Not at all Trouble relaxin = Not at all Being so restless that it is hard to sit still: 0 = Not at all Becoming easily annoyed or irritable: 0 = Not at all Feeling afraid as if something awful might happen: 0 = Not at all Total CHRISTI-7 score (0-4 normal; 5-9 mild; 10-14 moderate; 15-21 severe): 0 Source: Developed by Drs. Reece Medina, Brionna Sewell, Tarun Antony and colleagues, with an educational ree from [employer]. CHRISTI-7 Assessment Billing CHRISTI-7 Assessment Tool: CHRISTI-7 Assessment 84027 Review of Systems Const Denies chills, Denies fatigue, Denies fever(s), Denies frequent falls and Denies weakness ENT Denies dizziness Card Denies chest pain, Denies leg edema, Denies lightheadedness, Denies palpitations and Denies dyspnea Resp Denies cough and Denies dyspnea GI Denies hematochezia Reports no additional complaints Musc Denies abnormal gait, Denies muscle weakness, Denies numbness, Denies radiating pain into limb and Denies tingling Neuro Denies abnormal gait, Denies dizziness, Denies frequent falls, Denies numbness, Denies Sensory deficit (Neuro), Denies tingling and Denies weakness Psych Reports no additional complaints Endo Denies fatigue and Denies palpitations Scott/Lymph Reports easy bruising Physical exam (Primary Care) Vital Signs: Last Vital Signs Pulse 68 11/27/24 11:31 BP 146/70 H 11/27/24 11:31 Pulse Ox 94 11/27/24 11:31 Oxygen Delivery Method Room Air 11/27/24 11:31 BMI result Body Mass Index 26.4 Tobacco/Smoking Status: Tobacco use Status Tobacco use date assessed 11/27/24 11/27/24 11:51 Patient Tobacco Use Status Former Tobacco user 11/27/24 11:31 e-Cigarette/Vaping Use Never Used 11/27/24 11:31 PHQ-9: PHQ-9 Score PHQ-9: Total score 7 11/27/24 15:56 Depression Screening Interpretation: Negative Thrive Assessment: Date of Thrive Assessment Date Thrive assessed 11/27/24 11/27/24 11:51 Currently or been in a relationship where the following occur: No concerns reported Const Other: Frail looking elderly female, accompanied by granddaughter General: no acute distress, awake and Physically active Nutritional Appearance: average body habitus Orientation/consciousness: patient oriented x3 HENMT Head: Yes normocephalic Face and sinus: Yes face symmetric Mouth: Normal oral and palatal mucosa present, oropharynx normal and moist mucous membranes Eyes General: appearance normal, both eyes and all related structures Neck Neck: Yes full ROM, Yes no lymphadenopathy and Yes supple Resp Auscultation: crackles on the right at the base Cardio Rhythm: abnormal rhythm irregularly irregular GI Palpation (GI): Soft to palpation, nontender, no guarding and no masses Skin General skin exam: no rashes or lesions noted Neuro General: patient oriented x3, moves all extremities, no focal motor deficits and CN's II-XI intact bilaterally Sensory Exam: No Sensory deficit (Neuro) Extrem Other: . General: Yes full ROM, Yes no joint enlargement, Yes no clubbing, cyanosis or edema and Yes no calf tenderness Coding Level of Care Code Est Pt Level 4 (55575) Complex EM visit Add On G2211 Diagnoses Diabetes mellitus, with long-term current use of insulin E11.9; Z79.4 Diabetes mellitus complication status: with hypoglycemia Diabetes mellitus type: type 2 Dyslipidemia E78.5 Acquired hypothyroidism E03.9 Essential hypertension I10 Chronic kidney disease (CKD) stage G3a/A1, moderately decreased glomerular filtration rate (GFR) between 45-59 mL/min/1.73 square meter and albuminuria creatinine ratio less than 30 mg/g N18.31 Persistent atrial fibrillation I48.19 Additional Codes PHQ-9 - 00830 - PHQ-9 Billing: Yes ([id number]) CHRISTI-7 Assessment Billing - CHRISTI-7 Assessment Tool: CHRISTI-7 Assessment 65917 ([id number]) Assessment & Plan Assessment & Plan (1) Diabetes mellitus, with long-term current use of insulin: Code(s): E11.9 - Type 2 diabetes mellitus without complications; 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 Currently on Toujeo and Ozempic (2) Dyslipidemia: Code(s): E78.5 - Hyperlipidemia, unspecified Category: Medical Plan: Fasting lipid panel ordered today. Continue atorvastatin 40 mg daily (3) Acquired hypothyroidism: Code(s): E03.9 - Hypothyroidism, unspecified Category: Medical Plan: Currently on levothyroxine 112 mcg daily. Labs ordered to check for TSH and free T4 (4) Essential hypertension: Code(s): I10 - Essential (primary) hypertension Category: Medical Plan: Systolic blood pressure slightly elevated today. Will continue on atenolol 50 mg daily and diltiazem 180 mg once a day and losartan 100 mg daily. (5) Chronic kidney disease (CKD) stage G3a/A1, moderately decreased glomerular filtration rate (GFR) between 45-59 mL/min/1.73 square meter and albuminuria creatinine ratio less than 30 mg/g: Code(s): N18.31 - Chronic kidney disease, stage 3a Category: Medical Plan: Followed by Nephrology, takes furosemide as needed for leg swelling (6) Persistent atrial fibrillation: Code(s): I48.19 - Other persistent atrial fibrillation Category: Medical Plan: Currently on apixaban 5 mg 1 tablet twice a day Orders: Orders Hemoglobin A1c Today E03.9 - Hypothyroidism, unspecified, E11.9 - Type 2 diabetes mellitus without complications, E78.5 - Hyperlipidemia, unspecified, I10 - Essential (primary) hypertension, I48.19 - Other persistent atrial fibrillation, N18.31 - Chronic kidney disease, stage 3a, 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 Lipid Panel Today E03.9 - Hypothyroidism, unspecified, E11.9 - Type 2 diabetes mellitus without complications, E78.5 - Hyperlipidemia, unspecified, I10 - Essential (primary) hypertension, I48.19 - Other persistent atrial fibrillation, N18.31 - Chronic kidney disease, stage 3a, Z79.4 - assisted (current) use of insulin Microalbumin, Random (w Creat) Today E03.9 - Hypothyroidism, unspecified, E11.9 - Type 2 diabetes mellitus without complications, E78.5 - Hyperlipidemia, unspecified, I10 - Essential (primary) hypertension, I48.19 - Other persistent atrial fibrillation, N18.31 - Chronic kidney disease, stage 3a, 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 Thyroid Stimulating Hormone Today E03.9 - Hypothyroidism, unspecified, E11.9 - Type 2 diabetes mellitus without complications, E78.5 - Hyperlipidemia, unspecified, I10 - Essential (primary) hypertension, I48.19 - Other persistent atrial fibrillation, N18.31 - Chronic kidney disease, stage 3a, 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
== END 2024-11-27 12:15 | disposition home or self-care (01) ==
PROVIDERS: PCP Internal Medicine; Visit Provider Internal Medicine
DX: I12.9 Hypertensive chronic kidney disease with stage 1 through stage 4 chronic kidney disease, or unspecified chronic kidney disease (principal); E11.9 Type 2 diabetes mellitus without complications; Z79.4 Long term (current) use of insulin; N18.31 Chronic kidney disease, stage 3a; I48.19 Other persistent atrial fibrillation; E78.5 Hyperlipidemia, unspecified; E03.9 Hypothyroidism, unspecified

== ENCOUNTER 2024-12-14 13:50 | Outpatient (AMB) | payer MEDICARE, SELFPAY ==
[2024-12-14 13:52] VITALS: BP 122/60; PULSE 74; BMI 25.4
--- NOTE | 2024-12-14 13:52 | A.OFFVIS_ITS ---
Vital Signs 12/14/24 13:52 Height 5 ft 1 in Weight 134 lb 7.712 oz BMI 25.4 BP 122/60 Blood Pressure Location Lt brachial Position Sitting Pulse 74 Pulse Source Monitor Intake Visit Reasons: 6 mth f/up Allergies lisinopril Adverse Reaction (Verified 11/27/24 11:58) unknown avandia Allergy (Severe, Uncoded 11/27/24 11:58) swelling of tongue Medication List - Last Reconciled 12/14/24 by Efra Solo MD apixaban 5 mg PO BID 90 days atenolol 50 mg PO DAILY atorvastatin 40 mg PO DAILY blood-glucose meter,continuous (FreeStyle Perla 3 [place]) As directed blood-glucose meter,continuous (FreeStyle Perla 3 [place]) As directed blood-glucose sensor (FreeStyle Perla 3 Sensor device) As directed diltiazem HCl ER (DILT-XR) 180 mg PO BID 90 days famotidine 40 mg PO DAILY furosemide 20 mg PO DAILY PRN insulin glargine U-300 conc (Toujeo SoloStar U-300 Insulin) 34 units (0.1133 mL) subcut BEDTIME 90 days levothyroxine 112 mcg PO DAILY losartan 100 mg PO DAILY pen needle, diabetic (BD Kimi 2nd Gen Pen Needle) As directed daily [Rollator with seat As directed] semaglutide 0.5 mg (0.736 mL) subcut QWEEK 30 days HPI Comments Details: Lachelle returns for follow-up. Originally, seen in consultation regarding shortness of breath. At that time, thought to have moderate aortic stenosis, but not entirely adequate to explain her symptoms. Subsequently, she was admitted to [facility] [place] with pneumonia and then had atrial fibrillation with rapid rate. She is on rate control medications. Since last seen, no new specific cardiac concerns. Seems to be getting along fine. Was on digoxin but not anymore because of side effects. From the pulmonary standpoint, she also has a diagnosis of interstitial lung disease. [facility] Medical History Shortness of breath on exertion New onset atrial fibrillation Elevated hemidiaphragm Cyst of pancreas Moderate aortic valve stenosis Mitral and aortic regurgitation Osteoarthritis of hip Dyspnea on exertion Systolic ejection murmur Fracture of left wrist Essential hypertension History of left breast cancer IBS (irritable bowel syndrome) Acquired hypothyroidism Dyslipidemia Diabetes mellitus, with long-term current use of insulin Surgical History History of bladder suspension procedure History of cholecystectomy History of lumpectomy of left breast Family History Unknown No problems noted. Social History Housing: House Patient Tobacco Use Status: Former Tobacco user e-Cigarette/Vaping Use: Never Used service: No Current occupational status: retired Cognitive needs: No Hearing needs: Yes Vision needs: Yes Review of Systems Const Denies weakness ENT Denies dizziness Card Denies chest pain, Denies chest pain with activity, Denies syncope, Denies rapid heart rate, Denies pedal edema, Denies edema, Denies leg edema, Denies lightheadedness, Denies palpitations, Denies dyspnea, Denies dyspnea on exertion and Denies orthopnea Resp Denies cough, Denies dyspnea and Denies dyspnea on exertion GI Denies hematochezia and Denies change in stool character Musc Denies abnormal gait, Denies muscle cramps, Denies muscle weakness, Denies numbness, Denies radiating pain into limb and Denies tingling Neuro Denies abnormal gait, Denies dizziness, Denies syncope, Denies numbness, Denies tingling and Denies weakness Endo Denies palpitations Physical Exam Vital Signs: Last Vital Signs Pulse 74 12/14/24 13:52 BP 122/60 12/14/24 13:52 BMI result Body Mass Index 25.4 Const General: comfortable and no acute distress Orientation/consciousness: patient oriented x3 HEENT Other: Unremarkable Head: Yes normal to inspection Neck Neck: Yes normal visual inspection Chest Chest palpation & inspection: normal inspection of the chest Resp Auscultation: crackles and diminished lung sounds Cardio Palpation: normal PMI Heart sounds: S1 normal heart sound present, S2 normal heart sound present, no gallops, Murmur heart sound present systolic II/ and no rubs GI Palpation (GI): Soft to palpation Back/Spine/Pelvis Other: unremarkable Skin General skin exam: no rashes or lesions noted Neuro General: patient oriented x3 Extrem General: Yes normal to inspection Psych Mental Status: mental status grossly normal Office Procedures EKG Details: EKG shows atrial fibrillation at a rate of 74/Min; rightward axis. [id number], Complete Assessment & Plan Assessment & Plan (1) Persistent atrial fibrillation: Code(s): I48.19 - Other persistent atrial fibrillation Category: Medical Plan: On Diltiazem/Atenolol. No changes. Not on Digoxin anymore because of side effects. Continue anticoagulation. With regard to Eliquis dose, she is somewhat borderline for 5 mg vs 2.5 mg b.i.d.. Advised that if she drops any further weight, we will need to change the dose. They understand. (2) Moderate aortic valve stenosis: Code(s): I35.0 - Nonrheumatic aortic (valve) stenosis Category: Medical Plan: In the most recent echocardiogram from [facility], moderately calcified aortic valve with [id number] stenosis and mild regurgitation. We can follow on echocardiogram. (3) Essential hypertension: Code(s): I10 - Essential (primary) hypertension Category: Medical Plan: Stable. Plan Discussed with family who came for appointment. Medications: Changed From furosemide 20 mg PO DAILY 90 tabs 3RF To furosemide 20 mg PO DAILY PRN From apixaban 5 mg PO BID 90 days 180 tabs 3RF To apixaban 5 mg PO BID 120 tabs 1RF 2 months Coding Level of Care Code Est Pt Level 4 (66093) Diagnoses Persistent atrial fibrillation I48.19 Moderate aortic valve stenosis I35.0 Essential hypertension I10 CPT Codes EKG - CPT: 84634-[id number], Complete ([id number])
== END 2024-12-14 14:19 | disposition home or self-care (01) ==
PROVIDERS: PCP Internal Medicine; Visit Provider Internal Medicine
DX: I48.19 Other persistent atrial fibrillation (principal); I35.0 Nonrheumatic aortic (valve) stenosis; I10 Essential (primary) hypertension
CPT/HCPCS: 93010; 99214

== ENCOUNTER → 2024-12-14 13:50 | Outpatient (BNVA) | payer MEDICARE, SELFPAY | PROVIDERS: PCP Internal Medicine; Visit Provider Internal Medicine | DX: I48.19 Other persistent atrial fibrillation (principal); I35.0 Nonrheumatic aortic (valve) stenosis; I10 Essential (primary) hypertension; R94.31 Abnormal electrocardiogram [ECG] [EKG] | CPT/HCPCS: 93005; 99212 ==

== ENCOUNTER 2024-12-15 10:42 | Outpatient (REF) | payer MEDICARE, SELFPAY | END 2024-12-15 10:43 | disposition home or self-care (01) | LOC: HO.10HDLNP 10:42 | PROVIDERS: Visit Provider Nurse Practitioner Adult Health | DX: E11.40 Type 2 diabetes mellitus with diabetic neuropathy, unspecified (principal); E11.22 Type 2 diabetes mellitus with diabetic chronic kidney disease; N18.9 Chronic kidney disease, unspecified; Z79.85 Long-term (current) use of injectable non-insulin antidiabetic drugs | CPT/HCPCS: 82947; 99212 ==

== ENCOUNTER 2024-12-19 09:03 | Outpatient (REF) | payer MEDICARE, SELFPAY ==
[2024-12-19 10:36] LABS: Appearance Urine Cloudy; Color Urine Yellow; Glucose Urine UA Negative (Negative); Leukocyte Esterase Urine Moderate (2+) (Negative); Nitrite Urine Negative (Negative); PH 7.5 (5.0-9.0); UMIC TRIGGER UACC YES; Urine Blood Negative (Negative); Urine Ketones Negative (Negative); Urine Protein Trace mg/dL (Neg-Trace)
[2024-12-19 10:43] LABS: Bacteria Urine 4+ (None Seen); Hyaline Casts Urine 0-2 /LPF (0-2); RBC Urine 0-2 /HPF (0-2); Squamous Epithelial Cell Urine 0-2 /HPF (0-2); UACC Culture Trigger YES; WBC Urine 21-50 /HPF (0-5)
== END 2024-12-19 09:04 | disposition home or self-care (01) ==
LOC: HO.10HDLNP 09:03
PROVIDERS: Visit Provider Nurse Practitioner Adult Health
DX: E11.9 Type 2 diabetes mellitus without complications (principal); Z79.4 Long term (current) use of insulin
CPT/HCPCS: 81001; 87086; 87088; 87186

== ENCOUNTER 2025-03-15 11:00 | Outpatient (AMB) | payer MEDICARE, SELFPAY ==
--- NOTE | 2025-03-15 08:10 | A.OFFVIS_ITS ---
Vital Signs 03/15/25 11:10 Height 5 ft 1 in Weight 138 lb 14.259 oz BMI 26.2 BP 174/88 H Blood Pressure Location Rt brachial Position Sitting Pulse 77 Pulse Source Pulse Oximeter Pulse Oximetry (%) 97 Oxygen Delivery Method Room Air Intake Visit Reasons: T2DM Intake Note: Patient presents today to for a follow-up on Type 2 Diabetes Mellitus: Most recent Diabetic Eye Exam: Had an appt around Sep, next appt Jun Last Podiatry Exam: Does not see a Short Piece Handler Most recent HbA1c: 7.4%, 03/15/2025 Random Glucose- 177 mg/dL, Today Security Shift Manager Required: No Accompanied by: Grand Child Allergies glipizide Adverse Reaction (Intermediate, Verified 12/15/24 08:01) hypoglycemia lisinopril Adverse Reaction (Verified 11/27/24 11:58) unknown avandia Allergy (Severe, Uncoded 11/27/24 11:58) swelling of tongue HPI Comments Details: 89 YO female who is seen in f/u for T2DM. She is accompanied today by her daughter and her granddaughter who is a nurse. She was last seen in November. Her most recent A1C 03/15/25 11/30/24 7.6%, 08/17/24 7.9%, 05/16/24 9.8%. Initially diagnosed with T2DM in 2002. Her weight had decreased 7 lb since increasing Ozempic to 0.5 mg. This was lowered to 0.25mg at her last visit. At her last visit her sugars had increased and she was sent to the lab for UA/C&S. She had an asymptomatic Klebsiella UTI which was treated with Bactrim. Was initially started on treatment with glipizide. This was stopped in 2023 due to hypoglycemia. Had allergic reaction to avandia Current regimen Ozempic 0.25 mg weekly Toujeo U300 33 units in the am Freestyle charly sensor 3 average glucose: [ ] 14 day continuous glucose sensor report reviewed Glucose Management indicator [ ] % Time CGM active [ ] % TIme in ranges: [ ] % very high (above 250) [ ] % high (181-250) [ ] % in range (70-180] [ ] % low (69-55) [ ] % very low (below 54) [ ] Glucose variability [ ] (target <36%) Interpretation of CGMS [ ] She was admitted to the hospital in 2023 for pneumonia and was worked up for interstitial lung disease. Her energy level is down and she is much less active which affected her glucose readings. She was previously well controlled with an A1C of 7.7% in 2022. Family history of T2DM in mother. Has eyes checked yearly, last eye exam 06/2024 [denies] retinopathy. Has field test scheduled f/u neye exam scheduled for june [+] neuropathy, last foot exam today, sees podiatry on occasion wears shoes or slippers she denies cramping in the lower legs. + Nephropathy: on 06/02/24:eGFR 45 Has HLD, on statin. Last LDL 65 as measured on 12/16. Denies CAD. H/o Afib followed by cardiology Denies symptoms of chest pain, dyspnea or claudication. Diet: breakfast:[Breakfast consists of an egg in Serbian muffin or a waffle, lunches is her biggest meal of the day where she has some sort of chicken,fish, occasional red meat with a starch and a vegetable, supper is leftovers] Weight: has picked up several pounds PFSH Medical History Shortness of breath on exertion New onset atrial fibrillation Elevated hemidiaphragm Cyst of pancreas Moderate aortic valve stenosis Mitral and aortic regurgitation Osteoarthritis of hip Dyspnea on exertion Systolic ejection murmur Fracture of left wrist Essential hypertension History of left breast cancer IBS (irritable bowel syndrome) Acquired hypothyroidism Dyslipidemia Diabetes mellitus, with long-term current use of insulin Surgical History History of bladder suspension procedure History of cholecystectomy History of lumpectomy of left breast Family History Unknown No problems noted. Social History Housing: House Patient Tobacco Use Status: Former Tobacco user e-Cigarette/Vaping Use: Never Used service: No Current occupational status: retired Cognitive needs: No Hearing needs: Yes Vision needs: Yes Physical Exam Vital Signs: Last Vital Signs Pulse 77 03/15/25 11:10 BP 174/88 H 03/15/25 11:10 Pulse Ox 97 03/15/25 11:10 Oxygen Delivery Method Room Air 03/15/25 11:10 BMI result Body Mass Index 26.2 Results AMB Hemoglobin A1c AMB Hemoglobin A1c 7.4 % Last Edit by LUI Huggins on 03/15/25 11:25 AMB Hemoglobin A1c AMB Hemoglobin A1c 7.3 % Last Edit by LUI Huggins on 03/15/25 16:24 Re-check A1c, patient is having surgery. Per Viktoriya Mayo APRN. 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 The patient expressed understanding and agreement with the above treatment plan. The patient is aware they should contact our office by phone for worsening glucose readings or for any low blood sugars which may warrant a change in diabetes medication. Compliance is encouraged with medications and any followup testing/consults which may have been ordered. Orders: Orders AMB Hemoglobin A1c Today E11.9 - Type 2 diabetes mellitus without complications, Z79.4 - longterm (current) use of insulin AMB Hemoglobin A1c Today E11.9 - Type 2 diabetes mellitus without complications, Z79.4 - longterm (current) use of insulin Patient Instructions: Check your feet daily looking for any signs of infection, drainage, redness, ulceration and seek medical attention if this occurs. Break in shoes gradually and do not wear open-toed shoes or walk stocking footed or barefooted. Take 15 carb carbohydrate grams to treat a low sugar (3-4 glucose tablets, half a glass of juice or 15 carbohydrate grams of soft candy such as gummie snacks). Recheck your sugar in 15 minutes and re-treat again with 15 carbohydrate grams if low or still with symptoms. Do not drive a car or operate machinery if you do not know what your blood sugar is, if it is low or in excess of 300. Reviewed sick day management Coding Diagnoses Diabetes mellitus, with long-term current use of insulin E11.9; Z79.4 Diabetes mellitus complication status: with hypoglycemia Diabetes mellitus type: type 2
[2025-03-15 11:10] VITALS: BP 174/88; PULSE 77; O2SAT 97; BMI 26.2
[2025-03-15 11:19] LABS: Glucose, Whole Blood 177 mg/dL (60-115)
== END 2025-03-15 11:40 | disposition home or self-care (01) ==
LOC: HO.ENCR 11:01
PROVIDERS: PCP Internal Medicine; Visit Provider Nurse Practitioner Adult Health
DX: E11.9 Type 2 diabetes mellitus without complications (principal); Z79.4 Long term (current) use of insulin

== ENCOUNTER → 2025-03-15 11:00 | Outpatient (BNVA) | payer MEDICARE, SELFPAY | PROVIDERS: PCP Internal Medicine; Visit Provider Nurse Practitioner Adult Health | DX: E11.9 Type 2 diabetes mellitus without complications (principal); Z79.4 Long term (current) use of insulin | CPT/HCPCS: 82947; 83036; 99212 ==

== ENCOUNTER 2025-05-18 08:01 | Outpatient (REF) | payer MEDICARE, SELFPAY ==
[2025-05-18 10:51] LABS: Anion Gap 11 (12-20); Blood Urea Nitrogen 23 mg/dL (9-16); Carbon Dioxide 27 mmol/L (22-29); Chloride 106 mmol/L (96-108); Cholesterol 116 mg/dL (<200); Estimated Glomerular Filt Rate 37; Glucose Random 85 mg/dL (60-115); HDL Cholesterol 38 mg/dL (>40); LDL Cholesterol Calculated 57 mg/dL (<100); Potassium 3.9 mmol/L (3.3-5.1); Sodium 140 mmol/L (135-145); Triglycerides 106 mg/dL (<150)
[2025-05-18 17:18] LABS: Creatinine Urine 98.69 mg/dL; Microalbum/Creatinine Ratio Ur 69.9 ug/mg cr (<30)
== END 2025-05-18 08:02 | disposition home or self-care (01) ==
LOC: HO.HMGCLDS 08:01
PROVIDERS: PCP Internal Medicine; Visit Provider Nurse Practitioner Adult Health
DX: E11.9 Type 2 diabetes mellitus without complications (principal); Z79.4 Long term (current) use of insulin
CPT/HCPCS: 36415; 80048; 80061; 82043; 82570; 84439; 84443

== ENCOUNTER 2025-06-15 10:32 | Outpatient (AMB) | payer MEDICARE, SELFPAY ==
[2025-06-15 10:35] VITALS: BP 138/68; PULSE 73; O2SAT 93; BMI 26.7
--- NOTE | 2025-06-15 10:35 | MHC.OFFVIS ---
Vital Signs 06/15/25 10:35 Height 5 ft 1 in Weight 141 lb 1.533 oz BMI 26.7 BP 138/68 Blood Pressure Location Lt brachial Position Sitting Pulse 73 Pulse Source Pulse Oximeter Pulse Oximetry (%) 93 Oxygen Delivery Method Room Air Intake Visit Reasons: T2DM Intake Note: Patient present today for Type 2 Diabetes Mellitus Last Diabetic eye exam: 06/2024 Last Podiatry Visit: 04/2025 Random Glucose: 160 mg/dl HgA1C: 7.9% Medical Dosimetrist Required: No Accompanied by: Daughter Allergies glipizide Adverse Reaction (Intermediate, Verified 06/15/25 10:41) hypoglycemia lisinopril Adverse Reaction (Verified 06/15/25 10:41) unknown avandia Allergy (Severe, Uncoded 06/15/25 10:41) swelling of tongue Medication List - Last Reconciled 06/15/25 by Emerita Kirk PA-C apixaban (Eliquis) 5 mg PO BID atenolol 50 mg PO DAILY atorvastatin 40 mg PO DAILY blood-glucose,distribution system operator,cont (FreeStyle Perla 3 [place]) As directed blood-glucose,distribution system operator,cont (FreeStyle Perla 3 [place]) As directed diltiazem HCl ER (DILT-XR) 180 mg PO BID famotidine 40 mg PO DAILY FreeStyle Perla 3 Sensor (blood-glucose sensor) As directed NS furosemide 20 mg PO DAILY PRN insulin glargine U-300 conc (Toujeo SoloStar U-300 Insulin) 33 units subcut BEDTIME levothyroxine 112 mcg PO DAILY losartan 100 mg PO DAILY pen needle, diabetic (BD Kimi 2nd Gen Pen Needle) As directed daily [Rollator with seat As directed] semaglutide 0.25 mg (0.368 mL) subcut QWEEK 84 days sulfamethoxazole-trimethoprim 800-160 mg 1 tab PO BID 5 days HPI HPI T2DM: Details: Patient is an 89-year-old female with a significant past medical history of AFib, hypothyroidism, chronic kidney disease, hypertension, aortic valve disease, hyperlipidemia and type 2 diabetes presenting today for a follow up regarding her diabetes. She was previously seen by my colleague. Endo: Her diabetes was diagnosed 1999. She is currently managed with Toujeo 30 units nightly and Ozempic 0.25 mg weekly -she was supposed to be on Toujeo 33 units nightly but noted some low blood sugars with this. The Ozempic causes nausea for the 1st couple days and then diarrhea following that. In the past she was discontinued on glipizide and glimepiride due to hypoglycemia. She does not think she has ever taken metformin. CGM-usage 96%, average glucose 161, G mi 7.2%, variability 29%. Very hyperglycemic 2%, hyperglycemic 37%, in range 59%, hypoglycemic 2 %, very hypoglycemic 0% She is experiencing overnight lows. She says that she does not check her blood sugars though to see if they are actually low. She does not have any symptoms of low blood sugar. She has experienced low blood sugars in the past where she has felt symptoms including weakness and shakiness. She treats low blood sugars with orange juice. CV: BP today in office is 138/68. Blood pressure is managed with atenolol 50 mg daily, losartan 100 mg daily , diltiazem 180 mg twice a day and furosemide 20 mg as needed for swelling. She is anticoagulated. No falls. She is on atorvastatin 40 mg nightly [facility] Medical History Shortness of breath on exertion New onset atrial fibrillation Elevated hemidiaphragm Cyst of pancreas Moderate aortic valve stenosis Mitral and aortic regurgitation Osteoarthritis of hip Dyspnea on exertion Systolic ejection murmur Fracture of left wrist Essential hypertension History of left breast cancer IBS (irritable bowel syndrome) Acquired hypothyroidism Dyslipidemia Diabetes mellitus, with long-term current use of insulin Surgical History History of bladder suspension procedure History of cholecystectomy History of lumpectomy of left breast Family History Unknown No problems noted. Social History Housing: House Patient Tobacco Use Status: Former Tobacco user e-Cigarette/Vaping Use: Never Used service: No Current occupational status: retired Cognitive needs: No Hearing needs: Yes Vision needs: Yes Physical Exam Vital Signs: Last Vital Signs Pulse 73 06/15/25 10:35 BP 138/68 06/15/25 10:35 Pulse Ox 93 06/15/25 10:35 Oxygen Delivery Method Room Air 06/15/25 10:35 BMI result Body Mass Index 26.7 Const Orientation/consciousness: patient oriented x3 HEENT Ears: hearing grossly normal bilaterally Neck Thyroid: Thyroid normal Lymphatic: no lymphadenopathy noted Resp Auscultation: clear to auscultation bilaterally Cardio Rate: regular rate Rhythm: regular rhythm Heart sounds: S1 normal heart sound present and S2 normal heart sound present Skin General skin exam: no rashes or lesions noted Neuro General: patient oriented x3, gait normal and no focal motor deficits Results AMB Hemoglobin A1c AMB Hemoglobin A1c 7.9 % Last Edit by LUI Santa on 06/15/25 10:53 Results Reviewed Results Reviewed: Laboratory Last Values Glucose (Clinic) 160 mg/dL (60-115) H 06/15/25 10:43 Hgb A1c (Clinic) 7.9 % (4.0-6.0) H 06/15/25 10:47 Laboratory Tests 03/15/25 05/18/25 05/18/25 11:19 08:06 09:00 Creatinine 1.35 Estimated GFR 37 Random Glucose 85 Hgb A1c (Clinic) 7.4 H Triglycerides 106 Cholesterol 116 LDL Cholesterol, Calc 57 HDL Cholesterol 38 L Urine Creatinine 98.69 Urine Microalbumin 69.0 Microalb/Creat Ratio 69.9 H Assessment & Plan Assessment & Plan (1) Diabetes mellitus, with long-term current use of insulin: Code(s): E11.9 - Type 2 diabetes mellitus without complications; Z79.4 - rn long term care (current) use of insulin Category: Medical Qualifiers: Diabetes mellitus complication status: with hypoglycemia Diabetes mellitus type: type 2 Plan: We will stop Ozempic and try Trulicity. We discussed risks and benefits and adverse effects of this medication. I will do a short term follow up with her. I will have her lower the Toujeo a little more given the low sugars. We will reduce to 27 units. I will have her follow up again within a month. She will call me sooner though if she experiences any hyper or hypoglycemic events. Glucose tabs ordered Reviewed rule of 15. (2) Essential hypertension: Code(s): I10 - Essential (primary) hypertension Category: Medical Plan: WNL. Continue current regimen (3) Dyslipidemia: Code(s): E78.5 - Hyperlipidemia, unspecified Category: Medical Plan: Lipids at goal. Continue the atorvastatin. Orders: Orders AMB Hemoglobin A1c Today E11.9 - Type 2 diabetes mellitus without complications, Z13.9 - Encounter for screening, unspecified, Z79.4 - rn long term care (current) use of insulin Medications: New dulaglutide (Trulicity) 0.75 mg (0.5 mL) subcut QWEEK 2 mL 4RF lancets (Lowdownapp LtdTouch UltraSoft 2 Lancet) use daily As directed to monitor blood sugars 100 ea 2RF blood-glucose meter (Lowdownapp LtdTouch Verio Flex Meter) Use daily As directed to monitor blood sugars 1 ea 0RF E11.649 - Type 2 diabetes mellitus with hypoglycemia without coma, Z79.4 - senior care (current) use of insulin blood sugar diagnostic (Lowdownapp LtdTouch Verio test strips) use daily As directed to monitor blood sugars 100 ea 1RF E11.9 - Type 2 diabetes mellitus without complications, Z79.4 - rn long term care (current) use of insulin glucose (Dex4 Glucose) until symptoms of low blood sugar are controlled 16 grams (4 x 4 gram) PO Q15M PRN 100 tabs 2RF hypoglycemia Changed From insulin glargine U-300 conc (Toujeo SoloStar U-300 Insulin) 33 units subcut BEDTIME To insulin glargine U-300 conc (Toujeo SoloStar U-300 Insulin) 27 units subcut BEDTIME Discontinued blood-glucose,distribution system operator,cont (FreeStyle Perla 3 [place]) Discontinued Reason: Doctor's Order As directed 1 ea 0RF semaglutide for 4 weeks Discontinued Reason: Doctor's Order 0.25 mg (0.368 mL) subcut QWEEK 84 days 6 mL 4RF Coding Level of Care Code Est Pt Level 4 (14528) Complex EM visit Add On G2211 Diagnoses Diabetes mellitus, with long-term current use of insulin E11.9; Z79.4 Diabetes mellitus complication status: with hypoglycemia Diabetes mellitus type: type 2 Essential hypertension I10 Dyslipidemia E78.5
[2025-06-15 10:48] LABS: Glucose, Whole Blood 160 mg/dL (60-115)
== END 2025-06-15 11:19 | disposition home or self-care (01) ==
LOC: HO.ENCR 10:33
PROVIDERS: PCP Internal Medicine; Visit Provider Physician Assistant
DX: E11.9 Type 2 diabetes mellitus without complications (principal); Z79.4 Long term (current) use of insulin; I10 Essential (primary) hypertension; E78.5 Hyperlipidemia, unspecified; Z13.9 Encounter for screening, unspecified

== ENCOUNTER 2025-06-15 10:37 | Outpatient (REF) | payer MEDICARE, SELFPAY ==
[2025-06-15 11:59] LABS: Appearance Urine Cloudy; Glucose Urine UA Negative (Negative); PH >= 9.0 (5.0-9.0); Specific Gravity - Urine 1.015 (1.005-1.025); UMIC TRIGGER UA YES
[2025-06-15 12:38] LABS: Other Crystals Urine Present
== END 2025-06-15 10:38 | disposition home or self-care (01) ==
LOC: HO.10HDLNP 10:37
PROVIDERS: Visit Provider Internal Medicine
DX: E11.22 Type 2 diabetes mellitus with diabetic chronic kidney disease (principal); E11.649 Type 2 diabetes mellitus with hypoglycemia without coma; I12.9 Hypertensive chronic kidney disease with stage 1 through stage 4 chronic kidney disease, or unspecified chronic kidney disease; N18.9 Chronic kidney disease, unspecified; E78.5 Hyperlipidemia, unspecified; R30.0 Dysuria; Z79.4 Long term (current) use of insulin; Z79.85 Long-term (current) use of injectable non-insulin antidiabetic drugs; Z79.899 Other long term (current) drug therapy; Z79.01 Long term (current) use of anticoagulants; Z87.891 Personal history of nicotine dependence; Z13.89 Encounter for screening for other disorder
CPT/HCPCS: 81001; 82947; 83036; 87086; 99212

== ENCOUNTER 2025-06-20 10:38 | Outpatient (AMB) | payer MEDICARE, SELFPAY ==
--- NOTE | 2025-06-20 10:41 | MHC.OFFVIS ---
Vital Signs 06/20/25 10:43 Height 5 ft 1 in Weight 140 lb BMI 26.4 BP 122/68 Blood Pressure Location Lt brachial Position Sitting Pulse 74 Pulse Source Pulse Oximeter Intake Visit Reasons: 6 m follow up Allergies glipizide Adverse Reaction (Intermediate, Verified 06/15/25 10:41) hypoglycemia lisinopril Adverse Reaction (Verified 06/15/25 10:41) unknown avandia Allergy (Severe, Uncoded 06/15/25 10:41) swelling of tongue Medication List - Last Reconciled 06/20/25 by Efra Solo MD apixaban (Eliquis) 5 mg PO BID atenolol 50 mg PO DAILY atorvastatin 40 mg PO DAILY blood sugar diagnostic (FreeStyle Lite Strips) Use daily As directed to check blood glucose blood-glucose meter (FreeStyle Lite Meter kit) Use daily As directed to check blood sugars 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-glucose,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,cont (FreeStyle Perla 3 [place]) As directed diltiazem HCl ER (DILT-XR) 180 mg PO BID dulaglutide (Trulicity) 0.75 mg (0.5 mL) subcut QWEEK famotidine 40 mg PO DAILY FreeStyle Perla 3 Sensor (blood-glucose sensor) As directed NS furosemide 20 mg PO DAILY PRN glucose (Dex4 Glucose) 16 grams (4 x 4 gram) PO Q15M PRN insulin glargine U-300 conc (Toujeo SoloStar U-300 Insulin) 27 units subcut BEDTIME lancets (FreeStyle Lancets) use daily as directed to check blood glucose levothyroxine 112 mcg PO DAILY losartan 100 mg PO DAILY pen needle, diabetic (BD Kimi 2nd Gen Pen Needle) As directed daily [Rollator with seat As directed] HPI Comments Details: Lachelle returns for follow-up. Originally, seen in consultation regarding shortness of breath. At that time, thought to have moderate aortic stenosis, but not entirely adequate to explain her symptoms. Subsequently, she was admitted to [facility] with pneumonia and then had atrial fibrillation with rapid rate. She is on rate control medications. Overall, shortness of breath is just about the same as before. No exacerbations. No angina or in fact any other complaints. She was on digoxin but taken off because of side effects. From the pulmonary standpoint, she has interstitial lung disease. Last time, she had lost some weight but it seems she has gained some of it back. [facility] Medical History Shortness of breath on exertion New onset atrial fibrillation Elevated hemidiaphragm Cyst of pancreas Moderate aortic valve stenosis Mitral and aortic regurgitation Osteoarthritis of hip Dyspnea on exertion Systolic ejection murmur Fracture of left wrist Essential hypertension History of left breast cancer IBS (irritable bowel syndrome) Acquired hypothyroidism Dyslipidemia Diabetes mellitus, with long-term current use of insulin Surgical History History of bladder suspension procedure History of cholecystectomy History of lumpectomy of left breast Family History Unknown No problems noted. Social History Housing: House Patient Tobacco Use Status: Former Tobacco user e-Cigarette/Vaping Use: Never Used service: No Current occupational status: retired Cognitive needs: No Hearing needs: Yes Vision needs: Yes Review of Systems Const Denies weakness ENT Denies dizziness Card Denies chest pain, Denies chest pain with activity, Denies syncope, Denies rapid heart rate, Denies pedal edema, Denies edema, Denies leg edema, Denies lightheadedness, Denies palpitations, Denies dyspnea, Denies dyspnea on exertion and Denies orthopnea Resp Denies cough, Denies dyspnea and Denies dyspnea on exertion GI Denies hematochezia and Denies change in stool character Musc Denies abnormal gait, Denies muscle cramps, Denies muscle weakness, Denies numbness, Denies radiating pain into limb and Denies tingling Neuro Denies abnormal gait, Denies dizziness, Denies syncope, Denies numbness, Denies tingling and Denies weakness Endo Denies palpitations Physical Exam Vital Signs: Last Vital Signs Pulse 74 06/20/25 10:43 BP 122/68 06/20/25 10:43 BMI result Body Mass Index 26.4 Const General: comfortable and no acute distress Orientation/consciousness: patient oriented x3 HEENT Other: Unremarkable Head: Yes normal to inspection Neck Neck: Yes normal visual inspection Chest Chest palpation & inspection: normal inspection of the chest Resp Auscultation: crackles and diminished lung sounds Cardio Palpation: normal PMI Heart sounds: S1 normal heart sound present, S2 normal heart sound present, no gallops, Murmur heart sound present systolic III/ and no rubs GI Palpation (GI): Soft to palpation Back/Spine/Pelvis Other: unremarkable Skin General skin exam: no rashes or lesions noted Neuro General: patient oriented x3 Extrem General: Yes normal to inspection Psych Mental Status: mental status grossly normal Assessment & Plan Assessment & Plan (1) Persistent atrial fibrillation: Code(s): I48.19 - Other persistent atrial fibrillation Category: Medical Plan: On Diltiazem/Atenolol. No changes. Not on Digoxin anymore because of side effects. Continue anticoagulation. (2) Moderate aortic valve stenosis: Code(s): I35.0 - Nonrheumatic aortic (valve) stenosis Category: Medical Plan: In the echocardiogram from [facility] 2023, moderately calcified aortic valve with [id number] stenosis and mild regurgitation. We can follow on echocardiogram. (3) Essential hypertension: Code(s): I10 - Essential (primary) hypertension Category: Medical Plan: Stable. Plan Discussion Notes I discussed with the patient the importance of maintaining her current medication regimen, including Eliquis. We also talked about the need for an echocardiogram to evaluate her cardiac status, given the time elapsed since the last assessment. Patient was informed and verbally consented to the use of an ambient scribe for clinic note documentation during this visit. Orders: Orders CA echo transthoracic complete Today I35.0 - Nonrheumatic aortic (valve) stenosis Patient Instructions: - Continue taking Eliquis as prescribed. - Schedule an echocardiogram as recommended. - Monitor and report any worsening symptoms. Coding Level of Care Code Est Pt Level 4 (43342) Complex EM visit Add On G2211 Diagnoses Persistent atrial fibrillation I48.19 Moderate aortic valve stenosis I35.0 Essential hypertension I10
[2025-06-20 10:43] VITALS: BP 122/68; PULSE 74; BMI 26.4
== END 2025-06-20 11:02 | disposition home or self-care (01) ==
LOC: HO.HCS 10:39
PROVIDERS: PCP Internal Medicine; Visit Provider Internal Medicine
DX: I48.19 Other persistent atrial fibrillation (principal); I35.0 Nonrheumatic aortic (valve) stenosis; I10 Essential (primary) hypertension
CPT/HCPCS: 99214; G2211

== ENCOUNTER → 2025-06-20 10:38 | Outpatient (BNVA) | payer MEDICARE, SELFPAY | PROVIDERS: PCP Internal Medicine; Visit Provider Internal Medicine | DX: I35.0 Nonrheumatic aortic (valve) stenosis (principal); I10 Essential (primary) hypertension; I48.19 Other persistent atrial fibrillation | CPT/HCPCS: 99212 ==

== ENCOUNTER 2025-07-16 10:01 | Outpatient (AMB) | payer MEDICARE, SELFPAY ==
[2025-07-16 10:10] VITALS: BP 116/56; PULSE 76; O2SAT 95; BMI 25.4
--- NOTE | 2025-07-16 10:10 | MHC.OFFVIS ---
Vital Signs 07/16/25 10:10 Height 5 ft 1 in Weight 134 lb 4.184 oz BMI 25.4 BP 116/56 L Blood Pressure Location Rt brachial Position Sitting Pulse 76 Pulse Source Pulse Oximeter Pulse Oximetry (%) 95 Oxygen Delivery Method Room Air Intake Visit Reasons: DMT2 Follow-up Intake Note: Patient present today for Type 2 Diabetes Mellitus Last Diabetic eye exam: Last exam was 06/2024 and has upcoming appt next month. Last Podiatry Visit: Doesn't have one Random Glucose: 294 mg/dl HgA1C: 7.9% 06/15/25 Business Control Specialist Required: No Accompanied by: Daughter Allergies glipizide Adverse Reaction (Intermediate, Verified 07/16/25 10:17) hypoglycemia lisinopril Adverse Reaction (Verified 07/16/25 10:17) unknown avandia Allergy (Severe, Uncoded 07/16/25 10:17) swelling of tongue Medication List - Last Reconciled 07/16/25 by Emerita Kirk PA-C apixaban (Eliquis) 5 mg PO BID atenolol 50 mg PO DAILY atorvastatin 40 mg PO DAILY blood sugar diagnostic (FreeStyle Lite Strips) Use daily As directed to check blood glucose blood-glucose meter (FreeStyle Lite Meter kit) Use daily As directed to check blood sugars blood-glucose,educational fundraising director,cont (FreeStyle Perla 3 [place]) As directed diltiazem HCl ER (DILT-XR) 180 mg PO BID dulaglutide (Trulicity) 0.75 mg (0.5 mL) subcut QWEEK famotidine 40 mg PO DAILY FreeStyle Perla 3 Sensor (blood-glucose sensor) As directed NS furosemide 20 mg PO DAILY PRN glucose (Dex4 Glucose) 16 grams (4 x 4 gram) PO Q15M PRN insulin glargine U-300 conc (Toujeo SoloStar U-300 Insulin) 27 units subcut BEDTIME lancets (FreeStyle Lancets) use daily as directed to check blood glucose levothyroxine 112 mcg PO DAILY losartan 100 mg PO DAILY pen needle, diabetic (BD Kimi 2nd Gen Pen Needle) As directed daily [Rollator with seat As directed] HPI HPI DMT2 Follow-up: Details: Patient is an 89-year-old female with a significant past medical history of AFib, hypothyroidism, chronic kidney disease, hypertension, aortic valve disease, hyperlipidemia and type 2 diabetes presenting today for a follow up regarding her diabetes. Endo: Her diabetes was diagnosed 1999. She is currently managed with Toujeo 30 units nightly and Trulicity 0.75 mg weekly -she has not had any adverse effects with the Trulicity. -she was supposed to be on Toujeo 33 units nightly but noted some low blood sugars with this. The Ozempic causes nausea for the 1st couple days and then diarrhea following that. In the past she was discontinued on glipizide and glimepiride due to hypoglycemia. She used to be on metformin but states it was d/cd years ago. CGM-usage 88%, average glucose 316, G mi 10.9%, variability 30%. Very hyperglycemic 73%, hyperglycemic 12%, in range 15%, hypoglycemic 0 %, very hypoglycemic 0% She does not feel that the Trulicity is as effective for her blood sugars at this dose as the Ozempic was. She also complains today of a possible UTI. For the last 2 weeks or so she has been experienced increased urinary frequency, malodorous urine, intermittent dysuria and just generally feeling fuzzy and unwell. She states her energy is lower and she thinks it is related to a UTI. She has had 1 in the past and it feels similar. Her urine has also been cloudy. She did bring in a urine sample today it is hoping to drop it off at the lab. States that she contacted her PCP just this morning. She states that she went on vacation so did not think to contact anyone in regards to feeling sick. She has not had any fevers or chills. She does get some intermittent mild nausea related to this but no vomiting or change in appetite. No flank pain or abdominal pain. CV: BP today in office is 116/56.. Blood pressure is managed with atenolol 50 mg daily, losartan 100 mg daily , diltiazem 180 mg twice a day and furosemide 20 mg as needed for swelling. She is anticoagulated. No falls. She is on atorvastatin 40 mg nightl [facility] Medical History Shortness of breath on exertion New onset atrial fibrillation Elevated hemidiaphragm Cyst of pancreas Moderate aortic valve stenosis Mitral and aortic regurgitation Osteoarthritis of hip Dyspnea on exertion Systolic ejection murmur Fracture of left wrist Essential hypertension History of left breast cancer IBS (irritable bowel syndrome) Acquired hypothyroidism Dyslipidemia Diabetes mellitus, with long-term current use of insulin Surgical History History of bladder suspension procedure History of cholecystectomy History of lumpectomy of left breast Family History Unknown No problems noted. Social History Housing: House Patient Tobacco Use Status: Former Tobacco user e-Cigarette/Vaping Use: Never Used service: No Current occupational status: retired Cognitive needs: No Hearing needs: Yes Vision needs: Yes Physical Exam Vital Signs: Last Vital Signs Pulse 76 07/16/25 10:10 BP 116/56 L 07/16/25 10:10 Pulse Ox 95 07/16/25 10:10 Oxygen Delivery Method Room Air 07/16/25 10:10 BMI result Body Mass Index 25.4 Const Orientation/consciousness: patient oriented x3 HEENT Ears: hearing grossly normal bilaterally Neck Thyroid: Thyroid normal Lymphatic: no lymphadenopathy noted Resp Auscultation: clear to auscultation bilaterally Cardio Rate: regular rate Rhythm: abnormal rhythm irregularly irregular Heart sounds: Murmur heart sound present GI Inspection: Yes normal to inspection Palpation (GI): Soft to palpation and Other GI palpation findings present (nontender, no cva tenderness) Auscultation: normoactive bowel sounds Rectal Exam - Female: deferred Skin General skin exam: no rashes or lesions noted Neuro General: patient oriented x3, gait normal and no focal motor deficits Assessment & Plan Assessment & Plan (1) Diabetes mellitus, with long-term current use of insulin: Code(s): E11.9 - Type 2 diabetes mellitus without complications; Z79.4 - assisted (current) use of insulin Category: Medical Qualifiers: Diabetes mellitus type: type 2 Diabetes mellitus complication status: with hypoglycemia Plan: Increase Toujeo to 32 units Increase Trulicity to 1.5 mg weekly Advised short term follow up into let me know if she develops any low blood sugars. Her diet will be better now that she is off of vacation. I have encouraged her to hydrate. I have ordered labs for her today (2) Chronic kidney disease (CKD) stage G3a/A1, moderately decreased glomerular filtration rate (GFR) between 45-59 mL/min/1.73 square meter and albuminuria creatinine ratio less than 30 mg/g: Code(s): N18.31 - Chronic kidney disease, stage 3a Category: Medical Plan: Reviewed last labs. Ordered kidney function today. (3) UTI (urinary tract infection): Code(s): N39.0 - Urinary tract infection, site not specified Plan: I will presume that she has a UTI. Reviewed last culture. We will start her on Cipro. I discussed risks and benefits and adverse effects of this medication. I have also ordered a UA and culture. Advised patient that I will contact her if we have to change the antibiotic. She will also follow up if anything worsens or changes or go to the ER. Patient understands and agrees with this plan. Orders: Orders Hemoglobin A1c Today E11.9 - Type 2 diabetes mellitus without complications, R73.01 - Impaired fasting glucose, Z79.4 - buttermaker (current) use of insulin UA CC w/rflx Micro + Cult Today R30.0 - Dysuria Comprehensive [place]. Panel Fast Today E11.9 - Type 2 diabetes mellitus without complications, Z79.4 - assisted (current) use of insulin Medications: New ciprofloxacin HCl 250 mg PO Q12H 10 tabs 0RF dulaglutide (Trulicity) 1.5 mg (0.5 mL) subcut QWEEK 2 mL 3RF Changed From insulin glargine U-300 conc (Toujeo SoloStar U-300 Insulin) 30 units subcut BEDTIME To insulin glargine U-300 conc (Toujeo SoloStar U-300 Insulin) 32 units subcut BEDTIME Discontinued dulaglutide (Trulicity) Discontinued Reason: Doctor's Order 0.75 mg (0.5 mL) subcut QWEEK 2 mL 4RF Patient Instructions: increase trulicity to 1.5 mg weekly increase toujeo to 32 units daily drop urine off at lab start cipro 250 mg twice a day x 5 days- call your pcp if any urinary changes. I will update you in 24/48 hrs regarding culture. if you get sicker, go to ED Coding Level of Care Code Est Pt Level 4 (60836) Complex EM visit Add On G2211 Diagnoses Diabetes mellitus, with long-term current use of insulin E11.9; Z79.4 Diabetes mellitus type: type 2 Diabetes mellitus complication status: with hypoglycemia Chronic kidney disease (CKD) stage G3a/A1, moderately decreased glomerular filtration rate (GFR) between 45-59 mL/min/1.73 square meter and albuminuria creatinine ratio less than 30 mg/g N18.31 UTI (urinary tract infection) N39.0
[2025-07-16 11:05] LABS: Glucose, Whole Blood 294 mg/dL (60-115)
== END 2025-07-16 10:48 | disposition home or self-care (01) ==
LOC: HO.ENCR 10:02
PROVIDERS: PCP Internal Medicine; Visit Provider Physician Assistant
DX: E11.9 Type 2 diabetes mellitus without complications (principal); Z79.4 Long term (current) use of insulin; N18.31 Chronic kidney disease, stage 3a; N39.0 Urinary tract infection, site not specified

== ENCOUNTER → 2025-07-16 10:01 | Outpatient (BNVA) | payer MEDICARE, SELFPAY | PROVIDERS: PCP Internal Medicine; Visit Provider Physician Assistant | DX: E11.22 Type 2 diabetes mellitus with diabetic chronic kidney disease (principal); I12.9 Hypertensive chronic kidney disease with stage 1 through stage 4 chronic kidney disease, or unspecified chronic kidney disease; N18.31 Chronic kidney disease, stage 3a; E03.9 Hypothyroidism, unspecified; E78.2 Mixed hyperlipidemia; N39.0 Urinary tract infection, site not specified; R30.0 Dysuria; Z79.899 Other long term (current) drug therapy | CPT/HCPCS: 82947; 99212 ==

== ENCOUNTER 2025-07-16 10:53 | Outpatient (REF) | payer MEDICARE, SELFPAY ==
[2025-07-16 13:14] LABS: Appearance Urine Cloudy; Glucose Urine UA 250 mg/dL (Negative); PH 8.0 (5.0-9.0); Specific Gravity - Urine 1.015 (1.005-1.025); UMIC TRIGGER UACC YES
[2025-07-16 13:38] LABS: UACC Culture Trigger YES
== END 2025-07-16 10:54 | disposition home or self-care (01) ==
LOC: HO.10HDLNP 10:53
PROVIDERS: Visit Provider Physician Assistant
DX: R30.0 Dysuria (principal)
CPT/HCPCS: 81001; 87086; 87088

== ENCOUNTER → 2025-08-06 10:55 | Outpatient (REF) | payer MEDICARE, SELFPAY ==
--- NOTE | 2025-08-06 10:58 | CA_ITS ---
Transthoracic Echocardiogram Patient (Last, First, Middle): Beckie Lira, Gender: F Date of : 1935 Age: 89 Procedure Date: 08/06/2025 Procedure Type: Transthoracic Echocardiogram Location: OP Height: 154.94 cm Weight: 60.78 kg BSA: 1.59 m2 Heart Rate: bpm BP: 116 / 56 mmHg Manufacturing Lead: JASON Referring MD: Efra Solo MD Symptoms: I35.0 - Nonrheumatic aortic (valve) stenosis Study Quality: Fair ECG Rhythm: Sinus Conclusions: - The left ventricular systolic function is normal. The calculated ejection fraction is 64% by biplane method. - There is severe aortic valve stenosis. - There is moderate mitral annular calcification. Findings Left Ventricle Normal left ventricular cavity size. The left ventricular systolic function is normal. The calculated ejection fraction is 64% by biplane method. There is no evidence of regional wall motion abnormalities. Diastolic function is indeterminate on the basis of available data. There is mild septal asymmetric hypertrophy. Right Ventricle Normal right ventricular cavity size. There is mildly decreased right ventricular systolic function. Atria The left atrium is mildly dilated. The right atrium is normal in size. Aortic Valve There is severe calcification of the aortic valve. There is severe aortic valve stenosis. The peak aortic gradient is 41 mmHg.The mean gradient is 25 mmHg. The aortic valve area is 0.63 cm2. There is mild aortic valve regurgitation. Dimensionless index 0.22. Stroke volume index 33 mL/m2. Mitral Valve There is moderate mitral annular calcification. There is mild mitral valve regurgitation. There is no mitral valve stenosis. Pulmonic Valve The pulmonic valve is likely normal. Tricuspid Valve There is mild tricuspid valve regurgitation. Mild pulmonary hypertension is present. Great Vessels The asc aorta is normal in size. Venous The inferior vena cava is normal in size and collapses less than 50% with inspiration. Pericardium/Pleural There is no evidence of pericardial effusion. Prior Study Comparison Changes noted compared to prior study dated: 05/03/2023. Progression of aortic stenosis. Measurements 2D Linear Measurements IVSd: 1.19 0.6-0.9/0.6-1.0 cm LVIDd: 3.69 3.9-5.3/4.2-5.9 cm LVIDd Index: 2.32 2.4-3.2/2.2-3.1 cm/m2 LVIDs: 2.48 2.0-3.6 cm LVPWd: 0.91 0.7-1.1 cm LA Diam: 3.50 2.7-3.8/3.0-4.0 cm LAIDs Index: 2.20 1.5-2.3 cm/m2 LV Mass: 149.72 67-162/88-224 g LV Mass Index: 94.16 43-95/49-115 g/m2 LVOT Diam: 1.90 3.0+(-)1.3 cm 2D Systolic Function EF 4C: 65.50 >55% EF 2C: 62.00 >55% EF BiP: 63.80 >55% Mitral Valve MV VTI: 0.45 MV Pk Rajiv: 1.81 MV Mn Rajiv: 0.97 MV Pk Grad: 13.00 MV Mn Grad: 4.00 MV Pk E: 1.60 MV Decel Time: 211.00 E'Lateral: 5.88 E'Medial: 4.86 E/E' Med: 32.90 E/E' Lat: 27.20 PHT: 62.00 MVA PHT: 3.55 MVA Continuity: 1.18 Decel [place]: 7.93 Aortic Valve AoV Pk Rajiv: 3.20 AoV Mn Rajiv: 2.36 AoV VTI: 0.84 AoV Pk Grad: 41.00 Aov Mn Grad: 25.00 DARLYN Cont.VTI: 0.63 AI Pk Rajiv: 4.13 AI [place]: 2.52 LVOT LVOT Pk Rajiv: 0.71 LVOT Mn Rajiv: 0.50 LVOT VTI: 0.19 LVOT Pk Grad: 2.00 LVOT Mn Grad: 1.00 LVOT Diam: 1.90 LVOT Area: 2.84 Diastolic Function MV Pk E: 1.60 E'Medial: 4.86 E/E' Med: 32.90 E' Laterial: 5.88 E/E' Lat: 27.20 Right Ventricle TAPSE (mm): 13.90 TVS' Rajiv: 7.40 Tricuspid Valve TR Pk Rajiv: 3.02 TR Pk Grad: 36.00 RA Press: 8.00 RVSP: 44.00 Great Vessels Aorta Sinus of Valsalva: 2.82 2.0-3.5 cm Ao Asc: 2.90 2.1-3.4 cm Updated in Other Vendor System with Status of Final Efra Solo MD electronically signed on 08/07/2025 2:57:28 PM with status of Final
== END ==
LOC: HO.CARD 10:55
PROVIDERS: PCP Internal Medicine; Visit Provider Internal Medicine
DX: I35.0 Nonrheumatic aortic (valve) stenosis (principal)
CPT/HCPCS: 93306

== ENCOUNTER → 2025-08-06 10:58 | Outpatient (BNV) | payer MEDICARE, SELFPAY | PROVIDERS: PCP Internal Medicine; Visit Provider Internal Medicine | DX: I42.2 Other hypertrophic cardiomyopathy (principal); I35.0 Nonrheumatic aortic (valve) stenosis; I34.81 Nonrheumatic mitral (valve) annulus calcification | CPT/HCPCS: 93306 ==

== ENCOUNTER 2025-08-13 09:52 | Outpatient (REF) | payer MEDICARE, SELFPAY ==
[2025-08-13 13:05] LABS: Appearance Urine Clear; Glucose Urine UA 100 mg/dL (Negative); PH 7.0 (5.0-9.0); Specific Gravity - Urine 1.010 (1.005-1.025); UMIC TRIGGER UACC YES
[2025-08-13 13:12] LABS: UACC Culture Trigger YES
== END 2025-08-13 09:53 | disposition home or self-care (01) ==
LOC: HO.HMGCLNP 09:52
PROVIDERS: PCP Internal Medicine; Visit Provider Physician Assistant
DX: E11.9 Type 2 diabetes mellitus without complications (principal); I10 Essential (primary) hypertension; R30.0 Dysuria; Z79.4 Long term (current) use of insulin
CPT/HCPCS: 81001; 81003; 82947; 87086; 87088; 87186; 99212

== ENCOUNTER 2025-08-13 09:52 | Outpatient (AMB) | payer MEDICARE, SELFPAY ==
[2025-08-13 09:55] VITALS: BP 130/50; PULSE 55; O2SAT 98; BMI 26.5
--- NOTE | 2025-08-13 09:55 | A.OFFVIS_ITS ---
Vital Signs 08/13/25 09:55 Height 5 ft 1 in Weight 140 lb 6.951 oz BMI 26.5 BP 130/50 L Blood Pressure Location Rt brachial Position Sitting Pulse 55 Pulse Source Pulse Oximeter Pulse Oximetry (%) 98 Oxygen Delivery Method Room Air Intake Visit Reasons: T2DM Intake Note: Patient present today for Type 2 Diabetes Mellitus Last Diabetic eye exam: Last exam was on 06/2024 and has upcoming appt. Last Podiatry Visit: Doesn't have one Random Glucose: 214 mg/dl HgA1C: 7.9% 06/15/25 Manager Six Sigma Required: No Accompanied by: Daughter Allergies glipizide Adverse Reaction (Intermediate, Verified 08/13/25 10:01) hypoglycemia lisinopril Adverse Reaction (Verified 08/13/25 10:01) unknown avandia Allergy (Severe, Uncoded 08/13/25 10:01) swelling of tongue Medication List - Last Reconciled 08/13/25 by Emerita Kirk PA-C apixaban (Eliquis) 5 mg PO BID atorvastatin 40 mg PO DAILY blood sugar diagnostic (FreeStyle Lite Strips) Use daily As directed to check blood glucose blood-glucose meter (FreeStyle Lite Meter kit) Use daily As directed to check blood sugars blood-glucose,cigar packer,cont (FreeStyle Perla 3 [place]) As directed diltiazem HCl ER (DILT-XR) 180 mg PO BID famotidine 40 mg PO DAILY FreeStyle Perla 3 Sensor (blood-glucose sensor) As directed NS furosemide 20 mg PO DAILY PRN glucose (Dex4 Glucose) 16 grams (4 x 4 gram) PO Q15M PRN insulin glargine U-300 conc (Toujeo SoloStar U-300 Insulin) 32 units subcut BEDTIME lancets (FreeStyle Lancets) use daily as directed to check blood glucose levothyroxine 112 mcg PO DAILY losartan 100 mg PO DAILY pen needle, diabetic (BD Kimi 2nd Gen Pen Needle) As directed daily [Rollator with seat As directed] HPI HPI T2DM: Details: Patient is an 89-year-old female with a significant past medical history of AFib, hypothyroidism, chronic kidney disease, hypertension, aortic valve disease, hyperlipidemia and type 2 diabetes presenting today for a follow up regarding her diabetes. Endo: Her diabetes was diagnosed 1999. She is currently managed with Toujeo 28 units nightly and Trulicity 1.5 mg weekly -she has not had any adverse effects with the Trulicity. -she was supposed to be on Toujeo 33 units nightly but noted some low blood sugars with this. The Ozempic causes nausea for the 1st couple days and then diarrhea following that. In the past she was discontinued on glipizide and glimepiride due to hypoglycemia. She used to be on metformin but states it was d/cd years ago. CGM-usage 90%, average glucose 167, G mi 7.3%, variability 23%. Very hyperglycemic 12%, hyperglycemic 32%, in range 46%, hypoglycemic 10 %, very hypoglycemic 0% CV: BP today in office is 130/50.. Blood pressure is managed with losartan 100 mg daily , diltiazem 180 mg twice a day and furosemide 20 mg as needed for swelling. She is anticoagulated. No falls. She is on atorvastatin 40 mg nightly. [facility] Medical History Shortness of breath on exertion New onset atrial fibrillation Elevated hemidiaphragm Cyst of pancreas Moderate aortic valve stenosis Mitral and aortic regurgitation Osteoarthritis of hip Dyspnea on exertion Systolic ejection murmur Fracture of left wrist Essential hypertension History of left breast cancer IBS (irritable bowel syndrome) Acquired hypothyroidism Dyslipidemia Diabetes mellitus, with long-term current use of insulin Surgical History History of bladder suspension procedure History of cholecystectomy History of lumpectomy of left breast Family History Unknown No problems noted. Social History Housing: House Patient Tobacco Use Status: Former Tobacco user e-Cigarette/Vaping Use: Never Used service: No Current occupational status: retired Cognitive needs: No Hearing needs: Yes Vision needs: Yes Physical Exam Const Orientation/consciousness: patient oriented x3 HEENT Ears: hearing grossly normal bilaterally Neck Thyroid: Thyroid normal Lymphatic: no lymphadenopathy noted Resp Auscultation: clear to auscultation bilaterally Cardio Rate: regular rate Rhythm: regular rhythm Heart sounds: S1 normal heart sound present and S2 normal heart sound present Skin General skin exam: no rashes or lesions noted Neuro General: patient oriented x3, gait normal and no focal motor deficits Results Reviewed Results Reviewed: Laboratory Tests 05/18/25 05/18/25 06/15/25 08:06 09:00 10:47 Creatinine 1.35 Estimated GFR 37 Glucose (Clinic) Hgb A1c (Clinic) 7.9 H Triglycerides 106 Cholesterol 116 LDL Cholesterol, Calc 57 HDL Cholesterol 38 L Urine Creatinine 98.69 Urine Microalbumin 69.0 Microalb/Creat Ratio 69.9 H 07/16/25 10:19 Creatinine Estimated GFR Glucose (Clinic) 294 H Hgb A1c (Clinic) Triglycerides Cholesterol LDL Cholesterol, Calc HDL Cholesterol Urine Creatinine Urine Microalbumin Microalb/Creat Ratio Assessment & Plan Assessment & Plan (1) Diabetes mellitus, with long-term current use of insulin: Code(s): E11.9 - Type 2 diabetes mellitus without complications; Z79.4 - assisted (current) use of insulin Category: Medical Qualifiers: Diabetes mellitus complication status: with hypoglycemia Diabetes mellitus type: type 2 Plan: reduce toujeo to 20 units increase trulicity to 3 mg weekly short term follow up due to low blood sugars she will call me sooner if still going low. (2) Essential hypertension: Code(s): I10 - Essential (primary) hypertension Category: Medical Plan: continue current plan Orders: Orders UA CC w/rflx Micro + Cult Today R30.0 - Dysuria Medications: New dulaglutide (Trulicity) 3 mg (0.5 mL) subcut QWEEK 2 mL 3RF Changed From insulin glargine U-300 conc (Toujeo SoloStar U-300 Insulin) 32 units subcut BEDTIME To insulin glargine U-300 conc (Toujeo SoloStar U-300 Insulin) 20 units subcut DAILY Patient Instructions: lower toujeo to 20 units daily increase trulicity to 3 mg weekly Coding Level of Care Code Est Pt Level 4 (82441) Complex EM visit Add On G2211 Diagnoses Diabetes mellitus, with long-term current use of insulin E11.9; Z79.4 Diabetes mellitus complication status: with hypoglycemia Diabetes mellitus type: type 2 Essential hypertension I10
[2025-08-13 10:11] LABS: Glucose, Whole Blood 214 mg/dL (60-115)
== END 2025-08-13 10:25 | disposition home or self-care (01) ==
PROVIDERS: PCP Internal Medicine; Visit Provider Physician Assistant
DX: E11.9 Type 2 diabetes mellitus without complications (principal); Z79.4 Long term (current) use of insulin; I10 Essential (primary) hypertension

== ENCOUNTER 2025-08-20 08:27 | Outpatient (REF) | payer MEDICARE, SELFPAY ==
[2025-08-20 10:08] LABS: Appearance Urine Clear; Glucose Urine UA Negative (Negative); PH 6.5 (5.0-9.0); Specific Gravity - Urine 1.015 (1.005-1.025); UMIC TRIGGER UACC YES
[2025-08-20 11:03] LABS: Alanine Aminotransferase 27 U/L (0-31); Albumin Level 3.8 g/dL (3.5-5.0); Alkaline Phosphatase 69 U/L (39-117); Anion Gap 11 (12-20); Aspartate Amino Transferase 28 U/L (5-31); Blood Urea Nitrogen 34 mg/dL (9-16); Calcium 9.2 mg/dL (8.4-10.2); Carbon Dioxide 26 mmol/L (22-29); Chloride 108 mmol/L (96-108); Estimated Glomerular Filt Rate 25; Potassium 4.4 mmol/L (3.3-5.1); Sodium 141 mmol/L (135-145); Total Protein 6.8 g/dL (6.5-8.0)
== END 2025-08-20 08:28 | disposition home or self-care (01) ==
LOC: HO.HMGCLDS 08:27
PROVIDERS: Visit Provider Physician Assistant
DX: E11.9 Type 2 diabetes mellitus without complications (principal); R30.0 Dysuria; Z79.4 Long term (current) use of insulin
CPT/HCPCS: 36415; 80053; 81001

== ENCOUNTER 2025-08-29 10:17 | Outpatient (AMB) | payer MEDICARE, SELFPAY ==
[2025-08-29 10:20] VITALS: BP 108/62; PULSE 76; BMI 25.4
--- NOTE | 2025-08-29 10:20 | A.OFFVIS_ITS ---
Vital Signs 08/29/25 10:20 Height 5 ft 1 in Weight 134 lb 7.712 oz BMI 25.4 BP 108/62 Blood Pressure Location Lt brachial Position Sitting Pulse 76 Pulse Source Pulse Oximeter Intake Visit Reasons: 6 mth f /up Allergies glipizide Adverse Reaction (Intermediate, Verified 08/13/25 10:01) hypoglycemia lisinopril Adverse Reaction (Verified 08/13/25 10:01) unknown avandia Allergy (Severe, Uncoded 08/13/25 10:01) swelling of tongue Medication List - Last Reconciled 08/29/25 by Efra Solo MD apixaban (Eliquis) 5 mg PO BID atorvastatin 40 mg PO DAILY blood sugar diagnostic (FreeStyle Lite Strips) Use daily As directed to check blood glucose blood-glucose meter (FreeStyle Lite Meter kit) Use daily As directed to check blood sugars blood-glucose,network technical analyst,cont (FreeStyle Perla 3 [place]) As directed diltiazem HCl ER (DILT-XR) 180 mg PO BID dulaglutide (Trulicity) 3 mg (0.5 mL) subcut QWEEK famotidine 40 mg PO DAILY FreeStyle Perla 3 Sensor (blood-glucose sensor) As directed NS furosemide 20 mg PO DAILY PRN glucose (Dex4 Glucose) 16 grams (4 x 4 gram) PO Q15M PRN insulin glargine U-300 conc (Toujeo SoloStar U-300 Insulin) 20 units subcut DAILY lancets (FreeStyle Lancets) use daily as directed to check blood glucose levothyroxine 112 mcg PO DAILY losartan 100 mg PO DAILY pen needle, diabetic (BD Kimi 2nd Gen Pen Needle) As directed daily [Rollator with seat As directed] sulfamethoxazole-trimethoprim 800-160 mg (Bactrim DS) 1 tab PO Q12H 3 days HPI Comments Details: Lachelle returns for follow-up. Originally, seen in consultation regarding shortness of breath. At that time, thought to have moderate aortic stenosis, but not entirely adequate to explain her symptoms. Subsequently, she was admitted to [facility] with pneumonia and then had atrial fibrillation with rapid rate. She is on rate control medications. Overall, shortness of breath is just about the same as before. No exacerbations. No angina or in fact any other complaints. She was on digoxin but taken off because of side effects. From the pulmonary standpoint, she has interstitial lung disease. Overall, just about the same as before. [facility] Medical History Shortness of breath on exertion New onset atrial fibrillation Elevated hemidiaphragm Cyst of pancreas Moderate aortic valve stenosis Mitral and aortic regurgitation Osteoarthritis of hip Dyspnea on exertion Systolic ejection murmur Fracture of left wrist Essential hypertension History of left breast cancer IBS (irritable bowel syndrome) Acquired hypothyroidism Dyslipidemia Diabetes mellitus, with long-term current use of insulin Surgical History History of bladder suspension procedure History of cholecystectomy History of lumpectomy of left breast Family History Unknown No problems noted. Social History Housing: House Patient Tobacco Use Status: Former Tobacco user e-Cigarette/Vaping Use: Never Used service: No Current occupational status: retired Cognitive needs: No Hearing needs: Yes Vision needs: Yes Review of Systems Const All systems reviewed & are unremarkable except as noted in HPI and below Reports as per HPI and Reports no additional complaints Eyes Reports as per HPI and Denies no additional complaints ENT Denies no additional complaints and Reports as per HPI Card Reports as per HPI, Reports no additional complaints, Denies acrocyanosis, Denies chest pain, Denies leg edema, Denies lightheadedness, Denies palpitations and Reports dyspnea Resp Reports as per HPI, Denies no additional complaints and Reports dyspnea GI Reports as per HPI and Denies no additional complaints Reports as per HPI Musc Reports no additional complaints and Reports as per HPI Skin/Breast Reports system reviewed and no additional complaints, except as documented Neuro Reports no additional complaints and Reports as per HPI Psych Reports no additional complaints and Reports as per HPI Endo Reports no additional complaints, Reports as per HPI and Denies palpitations Scott/Lymph Reports no additional complaints and Reports as per HPI Aller/Immun Reports no additional complaints and Reports as per HPI Physical Exam Vital Signs: Last Vital Signs Pulse 76 08/29/25 10:20 BP 108/62 08/29/25 10:20 BMI result Body Mass Index 25.4 Const General: comfortable and no acute distress Orientation/consciousness: patient oriented x3 HEENT Other: Unremarkable Head: Yes normal to inspection Neck Neck: Yes normal visual inspection Chest Chest palpation & inspection: normal inspection of the chest Resp Auscultation: crackles and diminished lung sounds Cardio Palpation: normal PMI Heart sounds: S1 normal heart sound present, S2 normal heart sound present, no gallops, Murmur heart sound present systolic III/ and no rubs GI Palpation (GI): Soft to palpation Back/Spine/Pelvis Other: unremarkable Skin General skin exam: no rashes or lesions noted Neuro General: patient oriented x3 Extrem General: Yes normal to inspection Psych Mental Status: mental status grossly normal Assessment & Plan Assessment & Plan (1) Persistent atrial fibrillation: Code(s): I48.19 - Other persistent atrial fibrillation Category: Medical Plan: Currently on Diltiazem only. It seems she has been taken off atenolol. No longer on digoxin either because of side effects. Continue with anticoagulation. (2) Non-rheumatic aortic stenosis: Code(s): I35.0 - Nonrheumatic aortic (valve) stenosis Category: Medical Plan: Echocardiogram is suggestive of severe aortic stenosis. We discussed about potential TAVR considerations but they would like to hold off. Hence we will reassess in 6 months' time. In case worsening shortness of breath or chest pains or any other new symptoms, they will contact us immediately. Of note, her shortness of breath is most likely multifactorial and may or may not improve even after TAVR as she also has pulmonary issues. (3) Essential hypertension: Code(s): I10 - Essential (primary) hypertension Category: Medical Plan: Stable. Plan Discussion Notes During the consultation, we discussed the patient's aortic valve stenosis and the potential for transcatheter aortic valve replacement (TAVR) as a treatment option. I explained the procedure, including the use of an angiogram and the fact that it is performed through the groin under anesthesia. We also reviewed the patient's interstitial lung disease and its impact on her respiratory symptoms, as well as the management of her atrial fibrillation with anticoagul ation therapy to prevent stroke. Patient was informed and verbally consented to the use of an ambient scribe for clinic note documentation during this visit. Orders: Orders CA echo transthoracic complete 6 Months I35.8 - Other nonrheumatic aortic valve disorders Patient Instructions: - Monitor your breathing and report any significant changes. - Continue taking your anticoagulation medication as prescribed. - Consider the option of valve replacement and discuss any concerns with your healthcare provider. - Schedule a follow-up appointment in six months to reassess your condition. Coding Level of Care Code Est Pt Level 4 (31572) Complex EM visit Add On G2211 Diagnoses Persistent atrial fibrillation I48.19 Non-rheumatic aortic stenosis I35.0 Essential hypertension I10
== END 2025-08-29 10:47 | disposition home or self-care (01) ==
LOC: HO.HCS 10:18
PROVIDERS: PCP Internal Medicine; Visit Provider Internal Medicine
DX: I48.19 Other persistent atrial fibrillation (principal); I35.0 Nonrheumatic aortic (valve) stenosis; I10 Essential (primary) hypertension
CPT/HCPCS: 99214; G2211

== ENCOUNTER → 2025-08-29 10:17 | Outpatient (BNVA) | payer MEDICARE, SELFPAY | PROVIDERS: PCP Internal Medicine; Visit Provider Internal Medicine | DX: I10 Essential (primary) hypertension (principal); I48.19 Other persistent atrial fibrillation; I35.0 Nonrheumatic aortic (valve) stenosis | CPT/HCPCS: 99212 ==

== ENCOUNTER 2025-09-05 15:18 | Outpatient (AMB) | payer MEDICARE, SELFPAY ==
--- NOTE | 2025-09-05 15:57 | HO.NEPHOV ---
Vital Signs 09/05/25 16:02 Height 5 ft 1 in Weight 139 lb 2 oz BMI 26.3 BP 122/60 Blood Pressure Location Rt brachial Position Sitting Pulse 86 Pulse Source Pulse Oximeter Pulse Oximetry (%) 98 Oxygen Delivery Method Room Air Intake Visit Reasons: INP- DX CKD Right Of Way Supervisor Required: No Accompanied by: Daughter Allergies glipizide Adverse Reaction (Intermediate, Verified 09/05/25 16:00) hypoglycemia lisinopril Adverse Reaction (Verified 09/05/25 16:00) unknown avandia Allergy (Severe, Uncoded 08/13/25 10:01) swelling of tongue HPI Comments Details: I had the pleasure of seeing Salma in consultation for JANES. She is known to have diabetes for long time. She denies any retinopathy or neuropathy. She has hypertension and has been on ARB. She has been feeling intermittently dizzy. She recently had a urinary tract infection and was treated with Bactrim. She is known to have CKD 3. She denies any CHF, CAD, CVA, carotid stenosis, PAD or known renal artery stenosis. She did not have any shortness of breath, nausea, vomiting, diarrhea , NSAIDs use. She does not keep up with good hydration. She has history of breast cancer. Her serum creatinine has gone up to 1.9 . She has history of severe aortic stenosis. she did not have any other new complaints at the time this office visit. He was accompanied by her daughter Gloria and her granddaughter who is a RN. [facility] Medical History Shortness of breath on exertion New onset atrial fibrillation Elevated hemidiaphragm Cyst of pancreas Moderate aortic valve stenosis Mitral and aortic regurgitation Osteoarthritis of hip Dyspnea on exertion Systolic ejection murmur Fracture of left wrist Essential hypertension History of left breast cancer IBS (irritable bowel syndrome) Acquired hypothyroidism Dyslipidemia Diabetes mellitus, with long-term current use of insulin Surgical History History of bladder suspension procedure History of cholecystectomy History of lumpectomy of left breast Family History Unknown No problems noted. Social History Housing: House Patient Tobacco Use Status: Former Tobacco user e-Cigarette/Vaping Use: Never Used service: No Current occupational status: retired Cognitive needs: No Hearing needs: Yes Vision needs: Yes Review of Systems Const All systems reviewed & are unremarkable except as noted in HPI and below Physical Exam Vital Signs: Last Vital Signs Pulse 86 09/05/25 16:02 BP 122/60 09/05/25 16:02 Pulse Ox 98 09/05/25 16:02 Oxygen Delivery Method Room Air 09/05/25 16:02 BMI result Body Mass Index 26.3 Const General: comfortable and no acute distress Orientation/consciousness: patient oriented x3 HEENT Head: Yes normocephalic Mouth: Normal oral and palatal mucosa present Eyes EOM: EOMs intact bilaterally Neck Neck: Yes supple Resp Auscultation: clear to auscultation bilaterally Cardio Jugular venous distension: no JVD Rate: regular rate Heart sounds: Murmur heart sound present GI Palpation (GI): Soft to palpation Auscultation: normal bowel sounds General: Yes no CVA tenderness Back/Spine/Pelvis Back: no CVA tenderness Skin General skin exam: no rashes or lesions noted Neuro General: patient oriented x3 and moves all extremities Extrem General: Yes no pedal edema Results Reviewed Nephrology Results: Sodium, (135-145) 141 mmol/L 08/20/25 Potassium, (3.3-5.1) 4.4 mmol/L 08/20/25 Chloride, (96-108) 108 mmol/L 08/20/25 Carbon Dioxide, (22-29) 26 mmol/L 08/20/25 BUN, (9-16) 34 mg/dL H 08/20/25 Creatinine, (0.5-1.4) 1.90 mg/dL H 08/20/25 Calcium, (8.4-10.2) 9.2 mg/dL 08/20/25 Urine Protein, (Neg-Trace) Negative mg/dL 08/20/25 Assessment & Plan Assessment & Plan (1) JANES (acute kidney injury): Code(s): N17.9 - Acute kidney failure, unspecified Category: Medical (2) CKD stage 3a, GFR 45-59 ml/min: Code(s): N18.31 - Chronic kidney disease, stage 3a Category: Medical (3) Hypertension: Code(s): I10 - Essential (primary) hypertension Category: Medical Qualifiers: Hypertension type: primary hypertension Qualified Code(s): I10 - Essential (primary) hypertension Plan Ina most likely had JANES from tubular injury. She has been having orthostatic symptoms. I reduced her losartan by 50%. She most likely had altered autoregulation in the kidney. Her urine output is good which is ruling out obstructive etiology. Shannon infectious glomerulonephritis as well as AIN from Bactrim are in the differential but unlikely. She is a candidate for Jardiance once her JANES has resolved given her CKD and diabetes mellitus. She may also be having low flow state to the kidney from severe aortic stenosis. If her serum creatinine does not settled down, I shall discontinue her ARB. She should maintain good hydration and avoid nonsteroidal anti-inflammatories. I have ordered follow-up blood work and urine studies. I did not make any other medication changes but answered all her and her family's questions. Follow-up appointment given. Orders: Orders Calcium 2 Weeks N17.9 - Acute kidney failure, unspecified Protein Creatinine Ratio, Ur 2 Weeks N17.9 - Acute kidney failure, unspecified Creatinine 2 Weeks N17.9 - Acute kidney failure, unspecified Blood Urea Nitrogen 2 Weeks N17.9 - Acute kidney failure, unspecified Electrolytes 2 Weeks N17.9 - Acute kidney failure, unspecified Immunofixation Pnl, Serum 2 Weeks N17.9 - Acute kidney failure, unspecified Coding Level of Care Code New Pt Level 4 (43947) Diagnoses JANES (acute kidney injury) N17.9 CKD stage 3a, GFR 45-59 ml/min N18.31 Primary hypertension I10 Hypertension type: primary hypertension
[2025-09-05 16:02] VITALS: BP 122/60; PULSE 86; O2SAT 98; BMI 26.3
== END 2025-09-05 16:39 | disposition home or self-care (01) ==
LOC: HO.HKA 15:19
PROVIDERS: PCP Internal Medicine; Visit Provider Internal Medicine Nephrology
DX: N17.9 Acute kidney failure, unspecified (principal); N18.31 Chronic kidney disease, stage 3a; I10 Essential (primary) hypertension
CPT/HCPCS: 99204

== ENCOUNTER → 2025-09-05 15:18 | Outpatient (BNVA) | payer MEDICARE, SELFPAY | PROVIDERS: PCP Internal Medicine; Visit Provider Internal Medicine Nephrology | DX: I12.9 Hypertensive chronic kidney disease with stage 1 through stage 4 chronic kidney disease, or unspecified chronic kidney disease (principal); N18.31 Chronic kidney disease, stage 3a; N17.9 Acute kidney failure, unspecified | CPT/HCPCS: 99202 ==

== ENCOUNTER 2025-09-19 07:51 | Outpatient (REF) | payer MEDICARE, SELFPAY ==
[2025-09-19 10:22] LABS: Anion Gap 10 (12-20); Blood Urea Nitrogen 18 mg/dL (9-16); Calcium 9.1 mg/dL (8.4-10.2); Carbon Dioxide 27 mmol/L (22-29); Chloride 108 mmol/L (96-108); Estimated Glomerular Filt Rate 34; Potassium 4.1 mmol/L (3.3-5.1); Sodium 141 mmol/L (135-145)
[2025-09-19 11:07] LABS: Total Protein Urine Random < 7 mg/dL (<12)
== END 2025-09-19 07:52 | disposition home or self-care (01) ==
LOC: HO.HMGCLDS 07:51
PROVIDERS: PCP Internal Medicine; Visit Provider Internal Medicine Nephrology
DX: Z01.84 Encounter for antibody response examination (principal); N17.9 Acute kidney failure, unspecified
CPT/HCPCS: 36415; 80051; 82310; 82565; 82570; 82784; 84156; 84520; 86334

== ENCOUNTER 2025-09-21 14:08 | Outpatient (AMB) | payer MEDICARE, SELFPAY ==
--- NOTE | 2025-09-21 14:13 | HO.NEPHOV ---
Vital Signs 09/21/25 14:16 Height 5 ft 1 in Weight 138 lb 2 oz BMI 26.1 BP 132/60 Blood Pressure Location Lt brachial Position Sitting Pulse 91 Pulse Source Pulse Oximeter Intake Visit Reasons: 2 wks f/u w/ labs-Conf Hearing Aide Technician Required: No Accompanied by: Daughter Allergies glipizide Adverse Reaction (Intermediate, Verified 09/21/25 14:16) hypoglycemia lisinopril Adverse Reaction (Verified 09/21/25 14:16) unknown avandia Allergy (Severe, Uncoded 08/13/25 10:01) swelling of tongue HPI Comments Details: I had the pleasure of seeing Salma in follow up for JANES. She is known to have diabetes for long time. She denies any retinopathy or neuropathy. She has hypertension and has been on ARB. She has been feeling intermittently dizzy. She recently had a urinary tract infection and was treated with Bactrim. She is known to have CKD 3. She denies any CHF, CAD, CVA, carotid stenosis, PAD or known renal artery stenosis. She did not have any shortness of breath, nausea, vomiting, diarrhea , NSAIDs use. She does not keep up with good hydration. She has history of breast cancer. Her serum creatinine recently had gone up to 1.9 but improved now . She has history of severe aortic stenosis. she did not have any other new complaints at the time this office visit. [facility] Medical History Shortness of breath on exertion New onset atrial fibrillation Elevated hemidiaphragm Cyst of pancreas Moderate aortic valve stenosis Mitral and aortic regurgitation Osteoarthritis of hip Dyspnea on exertion Systolic ejection murmur Fracture of left wrist Essential hypertension History of left breast cancer IBS (irritable bowel syndrome) Acquired hypothyroidism Dyslipidemia Diabetes mellitus, with long-term current use of insulin Surgical History History of bladder suspension procedure History of cholecystectomy History of lumpectomy of left breast Family History Unknown No problems noted. Social History Housing: House Patient Tobacco Use Status: Former Tobacco user e-Cigarette/Vaping Use: Never Used service: No Current occupational status: retired Cognitive needs: No Hearing needs: Yes Vision needs: Yes Review of Systems Const All systems reviewed & are unremarkable except as noted in HPI and below Physical Exam Const General: comfortable and no acute distress Orientation/consciousness: patient oriented x3 HEENT Head: Yes normocephalic Mouth: Normal oral and palatal mucosa present Eyes EOM: EOMs intact bilaterally Neck Neck: Yes supple Resp Auscultation: clear to auscultation bilaterally Cardio Jugular venous distension: no JVD Rate: regular rate GI Palpation (GI): Soft to palpation Auscultation: normal bowel sounds General: Yes no CVA tenderness Back/Spine/Pelvis Back: no CVA tenderness Skin General skin exam: no rashes or lesions noted Neuro General: patient oriented x3 and moves all extremities Extrem General: Yes no pedal edema Results Reviewed Nephrology Results: Sodium, (135-145) 141 mmol/L 09/19/25 Potassium, (3.3-5.1) 4.1 mmol/L 09/19/25 Chloride, (96-108) 108 mmol/L 09/19/25 Carbon Dioxide, (22-29) 27 mmol/L 09/19/25 BUN, (9-16) 18 mg/dL H 09/19/25 Creatinine, (0.5-1.4) 1.46 mg/dL H 09/19/25 Calcium, (8.4-10.2) 9.1 mg/dL 09/19/25 Urine Protein, (Neg-Trace) Negative mg/dL 08/20/25 Urine Creatinine 66.77 mg/dL 09/19/25 Protein/Creatinin Ratio TNP 09/19/25 Assessment & Plan Assessment & Plan (1) Hypertension: Code(s): I10 - Essential (primary) hypertension Category: Medical Qualifiers: Hypertension type: primary hypertension Qualified Code(s): I10 - Essential (primary) hypertension (2) JANES (acute kidney injury): Code(s): N17.9 - Acute kidney failure, unspecified Category: Medical (3) CKD stage 3a, GFR 45-59 ml/min: Code(s): N18.31 - Chronic kidney disease, stage 3a Category: Medical Plan Ina had JANES from tubular injury which has improved with reduction of her losartan by 50%. She most likely had altered autoregulation in the kidney. Her urine output is good which is ruling out obstructive etiology. She is a candidate for Jardiance once her JANES has resolved given her CKD and diabetes mellitus. She may also be having low flow state to the kidney from severe aortic stenosis. If her serum creatinine does not settled down, I shall discontinue her ARB. She should maintain good hydration and avoid nonsteroidal anti-inflammatories. I have ordered follow-up blood work . I did not make any other medication changes but answered all her and her family's questions. Follow-up appointment given. Orders: Orders Creatinine Today I10 - Essential (primary) hypertension, N17.9 - Acute kidney failure, unspecified, N18.31 - Chronic kidney disease, stage 3a Blood Urea Nitrogen Today I10 - Essential (primary) hypertension, N17.9 - Acute kidney failure, unspecified, N18.31 - Chronic kidney disease, stage 3a Electrolytes Today I10 - Essential (primary) hypertension, N17.9 - Acute kidney failure, unspecified, N18.31 - Chronic kidney disease, stage 3a Coding Level of Care Code Est Pt Level 4 (86002) Diagnoses Primary hypertension I10 Hypertension type: primary hypertension JANES (acute kidney injury) N17.9 CKD stage 3a, GFR 45-59 ml/min N18.31
[2025-09-21 14:16] VITALS: BP 132/60; PULSE 91; BMI 26.1
== END 2025-09-21 14:33 | disposition home or self-care (01) ==
LOC: HO.HKA 14:09
PROVIDERS: PCP Internal Medicine; Visit Provider Internal Medicine Nephrology
DX: I10 Essential (primary) hypertension (principal); N17.9 Acute kidney failure, unspecified; N18.31 Chronic kidney disease, stage 3a
CPT/HCPCS: 99214

== ENCOUNTER → 2025-09-21 14:08 | Outpatient (BNVA) | payer MEDICARE, SELFPAY | PROVIDERS: PCP Internal Medicine; Visit Provider Internal Medicine Nephrology | DX: I12.9 Hypertensive chronic kidney disease with stage 1 through stage 4 chronic kidney disease, or unspecified chronic kidney disease (principal); N18.31 Chronic kidney disease, stage 3a; N17.9 Acute kidney failure, unspecified | CPT/HCPCS: 99212 ==

== ENCOUNTER 2025-09-24 09:26 | Outpatient (AMB) | payer MEDICARE, SELFPAY ==
[2025-09-24 09:29] VITALS: BP 138/60; PULSE 88; O2SAT 97; BMI 26.5
--- NOTE | 2025-09-24 09:29 | A.OFFVIS_ITS ---
Vital Signs 09/24/25 09:29 Height 5 ft 1 in Weight 140 lb 6.951 oz BMI 26.5 BP 138/60 Blood Pressure Location Lt brachial Position Sitting Pulse 88 Pulse Source Pulse Oximeter Pulse Oximetry (%) 97 Oxygen Delivery Method Room Air Intake Visit Reasons: T2DM,hypoglycemia Intake Note: Patient present today for Type 2 Diabetes Mellitus Last Diabetic eye exam: Last exam was in 2023 and has upcoming appt next week. Last Podiatry Visit: Last visit was around . 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: No Accompanied by: Grand Child Allergies glipizide Adverse Reaction (Intermediate, Verified 09/24/25 09:35) hypoglycemia lisinopril Adverse Reaction (Verified 09/24/25 09:35) unknown avandia Allergy (Severe, Uncoded 09/24/25 09:35) swelling of tongue Medication List - Last Reconciled 09/24/25 by Emerita Kirk PA-C apixaban (Eliquis) 5 mg PO BID atorvastatin 40 mg PO DAILY blood sugar diagnostic (FreeStyle Lite Strips) Use daily As directed to check blood glucose blood-glucose meter (FreeStyle Lite Meter kit) Use daily As directed to check blood sugars blood-glucose,vice president sales,cont (FreeStyle Perla 3 [place]) As directed diltiazem HCl ER (DILT-XR) 180 mg PO BID famotidine 40 mg PO DAILY FreeStyle Perla 3 Sensor (blood-glucose sensor) As directed NS furosemide 20 mg PO DAILY PRN glucose (Dex4 Glucose) 16 grams (4 x 4 gram) PO Q15M PRN insulin glargine U-300 conc (Toujeo SoloStar U-300 Insulin) 20 units subcut DAILY lancets (FreeStyle Lancets) use daily as directed to check blood glucose levothyroxine 112 mcg PO DAILY losartan 25 mg PO DAILY pen needle, diabetic (BD Kimi 2nd Gen Pen Needle) As directed daily [Rollator with seat As directed] HPI HPI T2DM,hypoglycemia: Details: Patient is an 89-year-old female with a significant past medical history of AFib, hypothyroidism, chronic kidney disease, hypertension, aortic valve disease, hyperlipidemia and type 2 diabetes presenting today for a follow up regarding her diabetes. Endo: Her diabetes was diagnosed 1999. She is currently managed with Toujeo 20 units nightly and Trulicity 3 mg weekly -she has not had any adverse effects with the Trulicity. In the past she was discontinued on glipizide and glimepiride due to hypoglycemia. She used to be on metformin but states it was d/cd years ago. Ozempic caused diarrhea CGM-usage 87%, average glucose 162, G mi 7.2%, variability 23%. Very hyperglycemic 1%, hyperglycemic 37%, in range 62%, hypoglycemic 0 %, very hypoglycemic 0% CV: BP today in office is 138/60.. Blood pressure is managed with losartan 25 mg daily , diltiazem 180 mg twice a day and furosemide 20 mg as needed for swelling. She is anticoagulated. No falls. She is on atorvastatin 40 mg nightly. [facility] Medical History Shortness of breath on exertion New onset atrial fibrillation Elevated hemidiaphragm Cyst of pancreas Moderate aortic valve stenosis Mitral and aortic regurgitation Osteoarthritis of hip Dyspnea on exertion Systolic ejection murmur Fracture of left wrist Essential hypertension History of left breast cancer IBS (irritable bowel syndrome) Acquired hypothyroidism Dyslipidemia Diabetes mellitus, with long-term current use of insulin Surgical History History of bladder suspension procedure History of cholecystectomy History of lumpectomy of left breast Family History Unknown No problems noted. Social History Housing: House Patient Tobacco Use Status: Former Tobacco user e-Cigarette/Vaping Use: Never Used service: No Current occupational status: retired Cognitive needs: No Hearing needs: Yes Vision needs: Yes Physical Exam Vital Signs: Last Vital Signs Pulse 88 09/24/25 09:29 BP 138/60 09/24/25 09:29 Pulse Ox 97 09/24/25 09:29 Oxygen Delivery Method Room Air 09/24/25 09:29 BMI result Body Mass Index 26.5 Const Orientation/consciousness: patient oriented x3 HEENT Ears: hearing grossly normal bilaterally Neck Thyroid: Thyroid normal Lymphatic: no lymphadenopathy noted Resp Auscultation: clear to auscultation bilaterally Cardio Rate: regular rate Rhythm: regular rhythm Heart sounds: S1 normal heart sound present and S2 normal heart sound present Skin General skin exam: no rashes or lesions noted Neuro General: patient oriented x3, gait normal and no focal motor deficits Results AMB Hemoglobin A1c AMB Hemoglobin A1c 8.1 % Last Edit by LUI Santa on 09/24/25 10:06 Results Reviewed Results Reviewed: Laboratory Last Values Glucose (Clinic) 195 mg/dL (60-115) H 09/24/25 09:39 Laboratory Tests 06/15/25 08/20/25 09/19/25 10:47 08:36 07:00 Creatinine 1.90 H Estimated GFR 25 Fasting Glucose 117 H Hgb A1c (Clinic) 7.9 H U Random Total Protein < 7 Urine Creatinine 66.77 Protein/Creatinin Ratio TNP 09/19/25 07:56 Creatinine 1.46 H Estimated GFR 34 Fasting Glucose Hgb A1c (Clinic) U Random Total Protein Urine Creatinine Protein/Creatinin Ratio Assessment & Plan Assessment & Plan (1) Diabetes mellitus, with long-term current use of insulin: Code(s): E11.9 - Type 2 diabetes mellitus without complications; Z79.4 - senior living (current) use of insulin Category: Medical Qualifiers: Diabetes mellitus type: type 2 Diabetes mellitus complication status: with hypoglycemia Plan: continue toujeo to 20 units increase trulicity to 4.5 mg weekly labs in 3 months, sooner prn she will call me sooner if still going low. 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 (current) use of insulin Hemoglobin A1c Today E11.9 - Type 2 diabetes mellitus without complications, I10 - Essential (primary) hypertension, R73.01 - Impaired fasting glucose, Z79.4 - senior living (current) use of insulin AMB Hemoglobin A1c Today E11.9 - Type 2 diabetes mellitus without complications, Z13.9 - Encounter for screening, unspecified, Z79.4 - terminal gauger supervisor (current) use of insulin Medications: New dulaglutide (Trulicity) 4.5 mg (0.5 mL) subcut QWEEK 2 mL 5RF Coding Level of Care Code Est Pt Level 4 (23423) Complex EM visit Add On G2211 Diagnoses Diabetes mellitus, with long-term current use of insulin E11.9; Z79.4 Diabetes mellitus type: type 2 Diabetes mellitus complication status: with hypoglycemia Essential hypertension I10
[2025-09-24 09:43] LABS: Glucose, Whole Blood 195 mg/dL (60-115)
== END 2025-09-24 10:00 | disposition home or self-care (01) ==
LOC: HO.ENCR 09:27
PROVIDERS: PCP Internal Medicine; Visit Provider Physician Assistant
DX: Z13.9 Encounter for screening, unspecified (principal); E11.9 Type 2 diabetes mellitus without complications; Z79.4 Long term (current) use of insulin; I10 Essential (primary) hypertension

== ENCOUNTER → 2025-09-24 09:26 | Outpatient (BNVA) | payer MEDICARE, SELFPAY | PROVIDERS: PCP Internal Medicine; Visit Provider Physician Assistant | DX: E11.9 Type 2 diabetes mellitus without complications (principal); I10 Essential (primary) hypertension; Z79.4 Long term (current) use of insulin; Z79.899 Other long term (current) drug therapy | CPT/HCPCS: 82947; 83036; 99212 ==